=== PATIENT | male | born 1945 | race Caucasian/White ===

== ENCOUNTER 2018-04-12 21:46 | Observation (INO) ==
[2018-04-12] MEDS ORDERED: 0.9 % Sodium Chloride 1,000 ML IVC ONE (21:51)
--- NOTE | 2018-04-12 21:52 | Emergency Department Note ---
Disposition Clinical Impression: Lower gastrointestinal hemorrhage Disposition: Admitted As Inpatient Condition: Fair Referrals: Sonia Luna MD [Primary Care Provider] - Forms: ED Satisfaction Letter Time of Disposition: 22:29 GI Bleed HPI - General Chief complaint: ED GI Bleed Stated complaint: GI bleed Time Seen by Provider: 04/12/18 21:50 Source: patient, EMS Mode of arrival: EMS Limitations: no limitations Nursing Notes Reviewed: Yes Vital Signs Reviewed: Yes - History of Present Illness HPI Narrative: Patient is a 72-year-old male with past medical history of hypertension, previous CT, currently on aspirin and Plavix, diabetes.. He presents today due to rectal bleeding. He states that he has had 6 total grossly bloody bowel movements that have filled up toilet bowl. He had 2 yesterday and 4 today. He was told by his primary care physician to stop his aspirin. He has stopped this. Denies any overt abdominal discomfort. He did have one episode of vomiting but denies any current nausea, fevers, chest pain, shortness of breath. He states that he felt general fatigue and sweating prior to arrival private received a small fluid bolus in route and states that he feels better currently. - Related Data Home Medications Medication Instructions Recorded Confirmed Aspirin Enteric Coated [Aspirin EC] 81 mg PO DAILY 07/27/15 11/02/15 Glimepiride [Amaryl] 1 mg PO DAILY 07/27/15 11/02/15 Potassium Chloride [Klor-Con 10 meq PO DAILY 07/27/15 11/02/15 Sprinkle] Amlodipine 10 mg PO DAILY 11/02/15 11/02/15 B Complex 1 tab PO DAILY 11/02/15 11/02/15 Coq10 100 mg PO DAILY 11/02/15 11/02/15 Fish Oil 1,200 mg PO DAILY 11/02/15 11/02/15 Hydrochlorothiazide 25 mg PO DAILY 11/02/15 11/02/15 Lisinopril [Zestril] 40 mg PO BID 11/02/15 11/02/15 Metoprolol [Lopressor] 12.5 mg PO BID 11/02/15 11/02/15 Pravastatin Sodium 20 mg PO HS 11/02/15 11/02/15 Vit D3/Vit E AC/Safflower Oil 1 tab PO DAILY 11/02/15 11/02/15 Previous Rx's Medication Instructions Recorded Clopidogrel [Plavix] 75 mg PO DAILY #30 tablet 07/29/15 Metoprolol [Lopressor] 25 mg PO BID #60 tablet 07/29/15 Nitroglycerin 0.4 mg SL Q5MIN PRN #25 tab.subl 07/29/15 Allergies Allergy/AdvReac Type Severity Reaction Status Date / Time No Known Allergies Allergy Verified 07/27/15 13:48 All systems ED: reviewed and negative except as stated. Constitutional: Denies: fever Cardiovascular: Denies: chest pain Respiratory: Denies: cough, dyspnea Gastrointestinal: Reports: vomiting, other (Rectal bleeding). Denies: abdominal pain, nausea, diarrhea, constipation Genitourinary: Denies: urgency, dysuria, frequency, hematuria Neurological: Denies: headache, weakness, numbness Endocrine: Reports: fatigue Past Medical History - Past Medical History Attestation: Yes The following information was validated with the patient. Source: patient Medical history: Reports: arthritis, cancer, CHF, coronary artery disease, diabetes, glaucoma, hyperlipidemia, hypertension, malignancy, myocardial infarction Surgical history: Reports: non-contributory Psychiatric history: Reports: no psych history - Social History Smoking Status: Light tobacco smoker Alcohol use: Reports: none Drug use: Reports: none Course Course Narrative: Blood pressure was stable upon arrival. No acute distress at this time. Rectal exam did show gross red blood. Lungs clear to auscultation, abdomen soft and nontender. Fluid bolus started, 1 L normal saline. Basic labs obtained including a CBC, BMP, PT/INR/PTT, type and screen. 22:28 blood pressure remained stable systolic of 110-120s. Hemoglobin 14.8. Patient is in no acute distress. I spoke with surgery, Dr. Limon, she is agreeable to be consult. Since patient is stable, he will not be taken emergently to colonoscopy at this time. She recommended admission to hospitalist and she will see patient in the morning. Vital Signs Temperature 98.7 F 04/12/18 21:48 Pulse Rate 66 04/12/18 21:48 Respiratory Rate 20 04/12/18 21:48 Blood Pressure 113/70 04/12/18 21:48 O2 Sat by Pulse Oximetry 96 04/12/18 21:48 Temperature 98.7 F 04/12/18 21:48 Pulse Rate 57 04/12/18 22:00 Respiratory Rate 13 04/12/18 22:00 Blood Pressure 121/78 04/12/18 22:00 O2 Sat by Pulse Oximetry 98 04/12/18 22:00 Oxygen Delivery Oxygen Delivery Nasal Cannula GI Bleed - [facility] Narrative Medical decision making narrative: Blood pressure was stable upon arrival. No acute distress at this time. Rectal exam did show gross red blood. Lungs clear to auscultation, abdomen soft and nontender. Fluid bolus started, 1 L normal saline. Basic labs obtained including a CBC, BMP, PT/INR/PTT, type and screen. 22:28 blood pressure remained stable systolic of 110-120s. Hemoglobin 14.8. Patient is in no acute distress. I spoke with surgery, Dr. Limon, she is agreeable to be consult. Since patient is stable, he will not be taken emergently to colonoscopy at this time. She recommended admission to hospitalist and she will see patient in the morning. Labs also show SHANNAN, patient given fluids. - Medical Records Medical records reviewed: Yes I reviewed the patient's medical records. - Lab Data Lab results reviewed: Yes I reviewed the patient's lab results. Result diagrams: 04/12/18 21:55 04/12/18 21:55 Lab Results 04/12/18 04/12/18 04/12/18 Range/Units 21:55 21:55 21:55 WBC 9.3 (4.3-11.1) K/mcL RBC 4.62 (4.19-5.50) M/mcL Hgb 14.8 (12.9-16.9) g/dL Hct 42.4 (37.5-50.1) % MCV 91.8 (83.0-100.0) fL MCH 32.0 (28.0-33.3) pg MCHC 34.9 (31.6-35.5) g/dL RDW 13.2 (11.5-14.5) % Plt Count 220 (140-400) K/mcL MPV 9.6 (9.4-12.4) fL Immature Gran % 0.3 (0-4) % Seg Neutrophils % 52.9 % Lymphocytes % 33.9 % Monocytes % 10.9 % Eosinophils % 1.6 % Basophils % 0.4 % Neutrophils # 4.9 (1.6-8.9) K/mcL Lymphocytes # 3.2 (0.6-4.6) K/mcL Monocytes # 1.0 (0.0-1.3) K/mcL Eosinophils # 0.2 (0.0-0.6) K/mcL Basophils # 0.0 (0.0-0.2) K/mcL PT 12.1 (9.4-12.1) Seconds INR 1.1 APTT 28.6 (26.0-36.0) Seconds Sodium 140 (136-145) mEq/L Potassium 3.6 (3.5-5.1) mEq/L Chloride 108 H (98-107) mEq/L Carbon Dioxide 23 (23-29) mEq/L BUN 31 H (8-23) mg/dL Creatinine 1.69 H (0.70-1.30) mg/dL Est GFR ( Amer) 48 L (> 60) Est GFR (Non-Af Amer) 40 L (> 60) BUN/Creatinine Ratio 18 (6-26) Glucose 262 H (70-105) mg/dL Calculated Osmolality 306 H (280-300) Calcium 8.4 L (8.6-10.3) mg/dL Blood Type 04/12/18 Range/Units 21:55 WBC (4.3-11.1) K/mcL RBC (4.19-5.50) M/mcL Hgb (12.9-16.9) g/dL Hct (37.5-50.1) % MCV (83.0-100.0) fL MCH (28.0-33.3) pg MCHC (31.6-35.5) g/dL RDW (11.5-14.5) % Plt Count (140-400) K/mcL MPV (9.4-12.4) fL Immature Gran % (0-4) % Seg Neutrophils % % Lymphocytes % % Monocytes % % Eosinophils % % Basophils % % Neutrophils # (1.6-8.9) K/mcL Lymphocytes # (0.6-4.6) K/mcL Monocytes # (0.0-1.3) K/mcL Eosinophils # (0.0-0.6) K/mcL Basophils # (0.0-0.2) K/mcL PT (9.4-12.1) Seconds INR APTT (26.0-36.0) Seconds Sodium (136-145) mEq/L Potassium (3.5-5.1) mEq/L Chloride (98-107) mEq/L Carbon Dioxide (23-29) mEq/L BUN (8-23) mg/dL Creatinine (0.70-1.30) mg/dL Est GFR ( Amer) (> 60) Est GFR (Non-Af Amer) (> 60) BUN/Creatinine Ratio (6-26) Glucose (70-105) mg/dL Calculated Osmolality (280-300) Calcium (8.6-10.3) mg/dL Blood Type A POSITIVE - EKG Data EKG attestation: Yes I reviewed and interpreted this EKG. EKG results narrative: 04/12/2018 at 21:49. Normal sinus rhythm. Rate 66. HI 165. QRS 101. QTC 424. No acute ST elevation or depression. S.B.A.R. - S.B.A.R. Situation: Demographics, MOA Background: Presenting Complaint, Relevant PMH, Meds, & Allergies Assessment: Vital Signs, Course and respsone to treatment, Exam Concerns, Patient/Family Expectation, Pertinant Lab Results Recommendation: Barrier(s) to disposition, Recommendation based on pending studies, treatments, or consults S.B.A.R. Report Given to: Dr. Dee
[2018-04-12] MEDS ORDERED: 0.9 % Sodium Chloride 1,000 ML ONE (21:53)
[2018-04-12 22:09] LABS: Basophils % 0.4 %; Eosinophils # 0.2 K/mcL (0.0-0.6); Eosinophils % 1.6 %; Hematocrit 42.4 % (37.5-50.1); Hemoglobin 14.8 g/dL (12.9-16.9); Immature Granulocytes % 0.3 % (0-4); Lymphocytes # 3.2 K/mcL (0.6-4.6); Lymphocytes % 33.9 %; Mean Corpuscular HGB Conc 34.9 g/dL (31.6-35.5); Mean Corpuscular Volume 91.8 fL (83.0-100.0); Mean Platelet Volume 9.6 fL (9.4-12.4); Monocytes % 10.9 %; Neutrophils # 4.9 K/mcL (1.6-8.9); Platelet Count 220 K/mcL (140-400); Red Blood Count 4.62 M/mcL (4.19-5.50); Red Cell Distribution Width 13.2 % (11.5-14.5); Segmented Neutrophils % 52.9 %
[2018-04-12 22:15] LABS: INR 1.1; Prothrombin Time 12.1 Seconds (9.4-12.1)
[2018-04-12 22:17] LABS: Activated Partial Thrombo Time 28.6 Seconds (26.0-36.0)
--- NOTE | 2018-04-12 22:23 | Emergency Department Note ---
Disposition Clinical Impression: Lower gastrointestinal hemorrhage Disposition: Still a Patient Referrals: Sonia Luna MD [Primary Care Provider] - Forms: ED Satisfaction Letter General Adult HPI - General Chief complaint: ED GI Bleed Stated complaint: GI bleed Time Seen by Provider: 04/12/18 21:50 Source: patient, EMS Mode of arrival: EMS Limitations: no limitations - History of Present Illness Pain Scale: 0 - Related Data Home Medications Medication Instructions Recorded Confirmed Aspirin Enteric Coated [Aspirin EC] 81 mg PO DAILY 07/27/15 11/02/15 Glimepiride [Amaryl] 1 mg PO DAILY 07/27/15 11/02/15 Potassium Chloride [Klor-Con 10 meq PO DAILY 07/27/15 11/02/15 Sprinkle] Amlodipine 10 mg PO DAILY 11/02/15 11/02/15 B Complex 1 tab PO DAILY 11/02/15 11/02/15 Coq10 100 mg PO DAILY 11/02/15 11/02/15 Fish Oil 1,200 mg PO DAILY 11/02/15 11/02/15 Hydrochlorothiazide 25 mg PO DAILY 11/02/15 11/02/15 Lisinopril [Zestril] 40 mg PO BID 11/02/15 11/02/15 Metoprolol [Lopressor] 12.5 mg PO BID 11/02/15 11/02/15 Pravastatin Sodium 20 mg PO HS 11/02/15 11/02/15 Vit D3/Vit E AC/Safflower Oil 1 tab PO DAILY 11/02/15 11/02/15 Previous Rx's Medication Instructions Recorded Clopidogrel [Plavix] 75 mg PO DAILY #30 tablet 07/29/15 Metoprolol [Lopressor] 25 mg PO BID #60 tablet 07/29/15 Nitroglycerin 0.4 mg SL Q5MIN PRN #25 tab.subl 07/29/15 Allergies Allergy/AdvReac Type Severity Reaction Status Date / Time No Known Allergies Allergy Verified 07/27/15 13:48 Constitutional: Denies: fever Cardiovascular: Denies: chest pain Respiratory: Denies: cough, dyspnea Gastrointestinal: Reports: vomiting, other (Rectal bleeding). Denies: abdominal pain, nausea, diarrhea, constipation Genitourinary: Denies: urgency, dysuria, frequency, hematuria Neurological: Denies: headache, weakness, numbness Endocrine: Reports: fatigue Past Medical History - Past Medical History Medical history: Reports: arthritis, cancer, CHF, coronary artery disease, diabetes, glaucoma, hyperlipidemia, hypertension, malignancy, myocardial infarction Surgical history: Reports: non-contributory Psychiatric history: Reports: no psych history - Social History Smoking Status: Light tobacco smoker Smokeless Tobacco Status: No Alcohol use: Reports: none Drug use: Reports: none Physical Exam - General Limitations: no limitations General appearance: alert Course - Reevaluation(s) Reevaluation #1: Attestation note I examined this patient and my medical decision-making was reviewed with the emergency medicine resident. I agree with the documented findings, disposition and treatment plan as described except to the extent set forth below. Patient seen with emergency medicine resident Dr. Wilbur Walker, Please see a copy of his note for details of the H&P, ED evaluation, management and disposition. I have independently evaluated the patient and confirmed appropriate portions of the history and physical exam. Briefly: 72-year-old male history of [place] is on aspirin and Plavix is taking himself off aspirin 2 days of bright red blood per rectum lightheadedness per EMS he was lethargic and systolic of 80 when he arrived he was systolic 100 he was pale but not overly so presented gross positive for blood on stool hemoglobin is 14 systolic is 110 after liters saline 2 large-bore IVs had been established. Patient has been typed and crossed. We will consult Dr. Limon surgical content editor for endoscopy. Plan is to continue resuscitation and admit patient for observation for lower GI bleed. Providing 45 minutes of critical care service for this patient Time: 22:21 Vital Signs Temperature 98.7 F 04/12/18 21:48 Pulse Rate 66 04/12/18 21:48 Respiratory Rate 20 04/12/18 21:48 Blood Pressure 113/70 04/12/18 21:48 O2 Sat by Pulse Oximetry 96 04/12/18 21:48 Temperature 98.7 F 04/12/18 21:48 Pulse Rate 65 04/12/18 21:53 Respiratory Rate 13 04/12/18 21:53 Blood Pressure 113/70 04/12/18 21:53 O2 Sat by Pulse Oximetry 99 04/12/18 21:56 Oxygen Delivery Oxygen Delivery Nasal Cannula Medical Decision Making - Lab Data Result diagrams: 04/12/18 21:55 Lab Results 04/12/18 04/12/18 Range/Units 21:55 21:55 WBC 9.3 (4.3-11.1) K/mcL RBC 4.62 (4.19-5.50) M/mcL Hgb 14.8 (12.9-16.9) g/dL Hct 42.4 (37.5-50.1) % MCV 91.8 (83.0-100.0) fL MCH 32.0 (28.0-33.3) pg MCHC 34.9 (31.6-35.5) g/dL RDW 13.2 (11.5-14.5) % Plt Count 220 (140-400) K/mcL MPV 9.6 (9.4-12.4) fL Immature Gran % 0.3 (0-4) % Seg Neutrophils % 52.9 % Lymphocytes % 33.9 % Monocytes % 10.9 % Eosinophils % 1.6 % Basophils % 0.4 % Neutrophils # 4.9 (1.6-8.9) K/mcL Lymphocytes # 3.2 (0.6-4.6) K/mcL Monocytes # 1.0 (0.0-1.3) K/mcL Eosinophils # 0.2 (0.0-0.6) K/mcL Basophils # 0.0 (0.0-0.2) K/mcL PT 12.1 (9.4-12.1) Seconds INR 1.1 APTT 28.6 (26.0-36.0) Seconds
[2018-04-12 22:28] LABS: Calcium 8.4 mg/dL (8.6-10.3); Potassium 3.6 mEq/L (3.5-5.1)
[2018-04-12] MEDS: 0.9 % Sodium Chloride 1,000 ML IVC SCH (22:52)
[2018-04-13] MEDS ORDERED: Naloxone 0.4 MG/ML INJ IVP PRN (01:22)
[2018-04-13] MEDS ORDERED: D5% in Water 1,000 ML IVC PRN (01:25)
[2018-04-13] MEDS ORDERED: *HR* Dextrose 50 % in Water (Syg) 50 ML SYRINGE IVP PRN (01:25)
[2018-04-13] MEDS ORDERED: Dextrose Gel 15 GM/37.5 ML TUBE PO PRN ×2 (01:25)
[2018-04-13] MEDS: 0.9 % Sodium Chloride 1,000 ML IVC SCH ×3 (01:30→09:16)
--- NOTE | 2018-04-13 01:45 | Internal Med History&Physical ---
Date of Encounter: 04/13/18 Time of Encounter: 01:20 Internal Medicine - H&P: HPI Chief complaint: BRBPR Admitted From: Home History of present illness: Mr. Dupont is a 72 year old male with history of STEMI status post PCI back in July 2015, on dual antiplatelet therapy, hypertension, presented to the ED with 2 day history of bright red blood per rectum/hematochezia. States that it spontaneously started 2 days ago when he had 2 bloody bowel movements. No abdominal pain, recent change in bowel habits, fever/chills, or N/V. He states that he had -ve Cologuard test about 6 months ago. Nevertheless, he was worried hence he stopped taking his ASA/plavix but he had 4 more episodes yesterday hence decided to come to the ED for further evaluation. Just prior to the ED arrival, he had a near-syncopal episode as well. He has no chest pain, shortness of breath, cough, sputum production, or dysuria. No joint pain or rash. In the ED, he was afebrile and hemodynamically stable. According to the EMS, he was hypotensive and was given IVF which he responded to. Labs show hemoglobin of 14.8 (baseline around 16-17), Cr 1.69 (Baseline 1.2), and glucose of 262. No coagulopathy or thrombocytopenia. He received 2 L of IV fluid boluses and admitted for further management. Past Med Surg Social Fam HX - Past Medical History Medical history: arthritis, coronary artery disease, diabetes, glaucoma, hyperlipidemia, hypertension, malignancy, myocardial infarction Psychiatric history: no psych history - Past Surgical History Surgical History: non-contributory - Social History Smoking Status: Light tobacco smoker Smokeless Tobacco Status: No Alcohol use: none Drug use: none - Family History Mother Adopted: Yes Family Member Ethnicity: Non- Living Status: Hx Family Cardiac Disorders: Yes (mother) Hx Family Respiratory Disorders: Yes (father) Hx Family Cancer: Yes (grandfather) Hx Family GI Disorders: No Hx Family Endocrine Disorder: Yes (mother) Hx Family Neuromuscular Disorders: No Hx Family Neurologic Disorders: No Hx Family HEENT Disorders: No Hx Family Autoimmune Disorders: No Internal Medicine - H&P: Meds Aspirin Enteric Coated [Aspirin EC] 81 mg PO DAILY 07/27/15 [History] Glimepiride [Amaryl] 1 mg PO DAILY 07/27/15 [History] Potassium Chloride [Klor-Con Sprinkle] 10 meq PO DAILY 07/27/15 [History] Clopidogrel [Plavix] 75 mg PO DAILY #30 tablet 07/29/15 [Rx] Metoprolol [Lopressor] 25 mg PO BID #60 tablet 07/29/15 [Rx] Nitroglycerin 0.4 mg SL Q5MIN PRN #25 tab.subl 07/29/15 [Rx] Amlodipine 10 mg PO DAILY 11/02/15 [History] B Complex 1 tab PO DAILY 11/02/15 [History] Coq10 100 mg PO DAILY 11/02/15 [History] Fish Oil 1,200 mg PO DAILY 11/02/15 [History] Hydrochlorothiazide 25 mg PO DAILY 11/02/15 [History] Lisinopril [Zestril] 40 mg PO BID 11/02/15 [History] Metoprolol [Lopressor] 12.5 mg PO BID 11/02/15 [History] Pravastatin Sodium 20 mg PO HS 11/02/15 [History] Vit D3/Vit E AC/Safflower Oil 1 tab PO DAILY 11/02/15 [History] 3 Allergy/AdvReac Type Severity Reaction Status Date / Time No Known Allergies Allergy Verified 07/27/15 13:48 All Systems PM: A 10-system review of systems was performed and is negative for pertinent findings except as documented above in the HPI. - Constitutional Vitals: Temp Pulse Resp BP Pulse Ox 98.0 F 66 16 92/60 95 04/13/18 00:02 04/13/18 00:02 04/13/18 00:02 04/13/18 00:02 04/13/18 00:02 Exam: General: Alert, oriented to person. not in distress Skin:Normal color, no rash, no lesions. HEENT:EOM, pupils equal, round and reactive. No pallor Cardiovascular:Normal S1 & S2, Pulse regular. Lungs:Normal breath sounds, no wheezes or crackles. Abdomen:Soft, non-tender, no rigidity. Extremities:No deformity, no edema or tenderness, no joint swelling or clubbing. Neurological: no focal deficits. motor function intact all 4 limbs Pulses:Carotid and radial pulses normal +2. Rest of the physical exam is non contributory. Internal Med - H&P Results - Labs CBC & Chem 7: 04/12/18 21:55 04/12/18 21:55 - Assessment and plan (1) Lower gastrointestinal hemorrhage Current Visit: Yes Status: Acute Assessment and plan: Two-day history of bright red blood per rectum and hematochezia likely lower GI bleed but brisk upper GI bleed is also a possibility given his initial hemodynamic instability Hemoglobin dropped to 14.8 from his baseline of 16-17 Hypotensive on presentation which responded to IV fluid Continue maintenance IV fluid, will give fluid bolus PRN for hypotension NPO, can have ice chips PPI BID H&H Q8 Surgery consulted and called from ED (2) CAD (coronary artery disease) Current Visit: Yes Status: Acute Assessment and plan: On dual antiplatelet therapy, hold off will also hold off on bb and MEAGAN-i in view of hypotension Qualifiers: Coronary Disease-Associated Artery/Lesion type: [place] artery [place] vs. transplanted heart: [place] heart Associated angina: without angina Qualified Code(s): I25.10 - Atherosclerotic heart disease of [place] coronary artery without angina pectoris (3) Diabetes mellitus Current Visit: No Status: Chronic Assessment and plan: On glimepiride at home, hold off low dose sliding scale Q6 Qualifiers: Diabetes mellitus type: type 2 Diabetes mellitus complication status: with unspecified complications Qualified Code(s): E11.8 - Type 2 diabetes mellitus with unspecified complications (4) Hypertension Current Visit: No Status: Chronic Assessment and plan: Hold off the medication as above Qualifiers: Hypertension type: essential hypertension Qualified Code(s): I10 - Essential (primary) hypertension (5) DVT prophylaxis Current Visit: Yes Status: Acute Assessment and plan: SCD - Time Spent With Patient Total time spent is greater than 50% in coordination of care (as documented) at patient's floor/unit and/or counseling patient:
[2018-04-13] MEDS ORDERED: 0.9 % Sodium Chloride 500 ML IVC PRN (01:54)
[2018-04-13] MEDS: Pantoprazole 40 MG VIAL IVP SCH ×2 (03:39→17:08)
[2018-04-13 04:43] LABS: Basophils % 0.3 %; Eosinophils # 0.1 K/mcL (0.0-0.6); Eosinophils % 0.8 %; Hematocrit 33.5 % (37.5-50.1); Immature Granulocytes % 0.4 % (0-4); Lymphocytes # 1.7 K/mcL (0.6-4.6); Lymphocytes % 16.6 %; Mean Corpuscular Hemoglobin 31.6 pg (28.0-33.3); Mean Corpuscular Volume 92.8 fL (83.0-100.0); Mean Platelet Volume 9.8 fL (9.4-12.4); Monocytes # 0.9 K/mcL (0.0-1.3); Monocytes % 8.9 %; Neutrophils # 7.7 K/mcL (1.6-8.9); Platelet Count 180 K/mcL (140-400); Red Blood Count 3.61 M/mcL (4.19-5.50); Red Cell Distribution Width 13.2 % (11.5-14.5)
[2018-04-13 05:00] LABS: BUN/Creatinine Ratio 24 (6-26); Blood Urea Nitrogen 30 mg/dL (8-23); Calcium 7.7 mg/dL (8.6-10.3); Carbon Dioxide 24 mEq/L (23-29); Chloride 114 mEq/L (98-107); Glucose 193 mg/dL (70-105); Osmolality,Calculated 307 (280-300); Potassium 3.8 mEq/L (3.5-5.1); Sodium 143 mEq/L (136-145); eGFR For Non-African Americans 56 (> 60)
[2018-04-13 05:17] LABS: Hemoglobin 11.4 g/dL (12.9-16.9)
[2018-04-13] MEDS: Insulin LISPRO 300 UNITS/3 ML VIAL SQ SCH ×3 (05:52→20:19)
[2018-04-13] MEDS ORDERED: Polyethylene Glycol 3350 255 GM POWDER PO ONE (12:07)
[2018-04-13 12:33] LABS: Hemoglobin 10.6 g/dL (12.9-16.9)
--- NOTE | 2018-04-13 12:39 | Internal Med Progress Note ---
Hospitalist Progress Note - Encounter Date of Encounter: 04/13/18 Time of Encounter: 12:34 - Subjective Interval History: Patient seen and examined at bedside. Patient overnight continued to have bright red blood per rectum in small volumes. However the bleeding continues to occur. Denies any chest pain, shortness breath, vomiting, nausea, abdominal pain. Patient was seen by surgery who ordered a clear liquid diet and bowel prep and will perform colonoscopy tomorrow. Informed the patient will have to continue holding aspirin and Plavix due to his bleeding. - Exam Vitals: Temp Pulse Resp BP Pulse Ox 98.1 F 81 18 108/71 97 04/13/18 11:31 04/13/18 11:31 04/13/18 11:31 04/13/18 11:31 04/13/18 11:31 Exam: Constitutional: No acute distress, Alert, nontoxic-appearing Psych: AAO x 3 HEENT: NCAT, EOMI Neck: supple, no JVD Cardio: regular rate and rhythm, +s1s2, no murmurs/rubs/gallops, no JVD Resp: clear to ascultation bilaterally, no wheezes/rales/ronchi Abd: soft, non tender/non distended, positive bowel sounds, no gaurding/reboud/ ridgitity Extremities: no clubbing/cyanosis/edema appreciated Neuro: no focal deficits appreciated - Assessment and Plan (1) Lower gastrointestinal hemorrhage Current Visit: Yes Status: Acute Assessment and Plan: Two-day history of bright red blood per rectum and hematochezia -likely lower GI bleed but brisk upper GI bleed is also a possibility given his initial hemodynamic instability -Hemoglobin dropped to 14.8 from his baseline of 16-17 -Hypotensive on presentation which responded to IV fluid -Continue maintenance IV fluid, will give fluid bolus PRN for hypotension -Currently hemodynamically stable -PPI BID -H&H Q8 -Her liquid diet started by general surgery -Bowel prep ordered -Colonoscopy scheduled for tomorrow -General surgery following (2) CAD (coronary artery disease) Current Visit: Yes Status: Acute Assessment and Plan: He is on dual antiplatelet therapy secondary to PCI with stent placement in 2014 -Informed patient that we will have to hold aspirin and Plavix currently; patient and family state they understand -Continue to hold bb and MEAGAN-i in view of hypotension -Evaluate post colonoscopy when able to resume at least one antiplatelet (3) Diabetes mellitus Current Visit: No Status: Chronic Assessment and Plan: On glimepiride at home, hold for now low dose sliding scale Q6 (4) DVT prophylaxis Current Visit: Yes Status: Acute Assessment and Plan: SCD (5) Hypertension Current Visit: No Status: Chronic Assessment and Plan: Continue to hold patient's home medications due to low normal blood pressures DVT Prophylaxis: SCDs - Time Spent with Patient Total time spent is greater than 50% in coordination of care (as documented) at patient's floor/unit and/or counseling patient: 25 - 35 minutes Plan of Care Discussed with: patient Internal Medicine: Result - Labs CBC & Chem 7: 04/13/18 04:01 04/13/18 04:01 Labs: Short CBC 04/13/18 Range/Units 04:01 WBC 10.5 (4.3-11.1) K/mcL Hgb 11.4 L D (12.9-16.9) g/dL Hct 33.5 L (37.5-50.1) % Plt Count 180 (140-400) K/mcL Neutrophils # 7.7 (1.6-8.9) K/mcL BMP 04/13/18 04:01 Sodium 143 Potassium 3.8 Chloride 114 H Carbon Dioxide 24 BUN 30 H Creatinine 1.26 Glucose 193 H Calcium 7.7 L - ABG Interpretation ABG results: PT/INR, D-dimer PT 12.1 Seconds (9.4-12.1) 04/12/18 21:55 - VTE Documentation of Mechanical Device: Intermittent pneumatic compression device Consult Discharge Plan - Plan Referrals: Soina Luna MD [Primary Care Provider] - (2) CAD (coronary artery disease) Qualifiers: Coronary Disease-Associated Artery/Lesion type: [place] artery [place] vs. transplanted heart: [place] heart Associated angina: without angina Qualified Code(s): I25.10 - Atherosclerotic heart disease of [place] coronary artery without angina pectoris (3) Diabetes mellitus Qualifiers: Diabetes mellitus type: type 2 Diabetes mellitus complication status: with unspecified complications Qualified Code(s): E11.8 - Type 2 diabetes mellitus with unspecified complications (5) Hypertension Qualifiers: Hypertension type: essential hypertension Qualified Code(s): I10 - Essential (primary) hypertension
--- NOTE | 2018-04-13 14:10 | General Surgery Consult Note ---
<Romi Mackay E - Last Filed: 04/13/18 14:07> Date of Encounter: 04/13/18 Time of Encounter: 14:07 Assessment and Plan (1) Rectal bleeding Current Visit: Yes Status: Acute CLD NPO after midnight Bowel prep Colonoscopy ordered for tomorrow, benefits and risks of surgery discussed with patient, procedure and common complications discussed with patient. Patient agreed to procedure. Patient signed consent form IV fluids as per primary History of Present Illness Consult date: 04/13/18 Reason for consult: other (Bright red blood per rectum) History of present illness: Patient states that Sunday he had some gas which left his underwear wet with blood. He then had two stools with bright red blood on Sunday. Saw his PCP on . Sunday he had a dizzy spell and passed out, called EMS. Denies abdominal pain, gerd, n/v. History of HTN, DM, hyperlipidemia, KS in 2014 , CAD. NO abdominal surgeries, stent placed after KS in 2014, Dental extractions with no complications. Has not had a colonoscopy. Past Med Surg Social Fam HX - Past Medical History Medical history: arthritis, coronary artery disease, diabetes, glaucoma, hyperlipidemia, hypertension, malignancy, myocardial infarction Psychiatric history: no psych history - Past Surgical History Surgical History: non-contributory - Social History Smoking Status: Light tobacco smoker Smokeless Tobacco Status: No Alcohol use: none Drug use: none - Family History Mother History Unknown: Yes Adopted: Yes Family Member Ethnicity: Non- Living Status: Hx Family Cardiac Disorders: Yes (mother) Hx Family Respiratory Disorders: Yes (father) Hx Family Cancer: Yes (grandfather) Hx Family GI Disorders: No Hx Family Endocrine Disorder: Yes (mother) Hx Family Neuromuscular Disorders: No Hx Family Neurologic Disorders: No Hx Family HEENT Disorders: No Hx Family Autoimmune Disorders: No Medications and Allergies Amlodipine Besylate 10 mg PO DAILY 04/13/18 [History] Aspirin [Lo-Dose Aspirin EC] 81 mg PO DAILY 04/13/18 [History] Clopidogrel [Plavix] 75 mg PO DAILY 04/13/18 [History] Glimepiride [Amaryl] 4 mg PO DAILY 04/13/18 [History] Lisinopril [Zestril] 40 mg PO DAILY 04/13/18 [History] Metoprolol [Lopressor] 12.5 mg PO BID 04/13/18 [History] 3 Allergy/AdvReac Type Severity Reaction Status Date / Time No Known Allergies Allergy Verified 07/27/15 13:48 Review of Systems All systems PM: The remainder of the systems were reviewed and are negative - Constitutional no fatigue, no weight gain, no weight loss - Cardiovascular no chest pain, no dyspnea, no radiating jaw, neck or arm pain - Respiratory no cough, no dyspnea on exertion, no chest congestion - Gastrointestinal as per HPI General Surgery Exam Initial Vital Signs Temp Pulse Resp BP Pulse Ox 98.7 F 66 20 113/70 96 04/12/18 21:48 04/12/18 21:48 04/12/18 21:48 04/12/18 21:48 04/12/18 21:48 - General physical appearance well developed, well nourished, no distress - Respiratory normal expansion, normal respiratory effort, clear to auscultation - Cardiovascular Cardiovascular exam: Present: RRR, no murmurs/rubs/gallops - Abdomen Abdomen general surgery: Present: bowel sounds present, soft, non tender - Musculoskeletal Present: normal posture - Psychiatric Psychiatric general surgery: Present: oriented to person, oriented to place, oriented to time Exam Initial Vital Signs Temp Pulse Resp BP Pulse Ox 98.7 F 66 20 113/70 96 04/12/18 21:48 04/12/18 21:48 04/12/18 21:48 04/12/18 21:48 04/12/18 21:48 Results - Labs 04/13/18 12:17 04/13/18 04:01 Abnormal lab results RBC 3.61 M/mcL (4.19-5.50) L 04/13/18 04:01 Hgb 10.6 g/dL (12.9-16.9) L 04/13/18 12:17 Hct 31.0 % (37.5-50.1) L 04/13/18 12:17 Chloride 114 mEq/L (98-107) H 04/13/18 04:01 BUN 30 mg/dL (8-23) H 04/13/18 04:01 Est GFR (Non-Af Amer) 56 (> 60) L 04/13/18 04:01 Glucose 193 mg/dL (70-105) H 04/13/18 04:01 Calculated Osmolality 307 (280-300) H 04/13/18 04:01 Calcium 7.7 mg/dL (8.6-10.3) L 04/13/18 04:01 Diabetes panel 04/13/18 Range/Units 04:01 Sodium 143 (136-145) mEq/L Potassium 3.8 (3.5-5.1) mEq/L Chloride 114 H (98-107) mEq/L Carbon Dioxide 24 (23-29) mEq/L BUN 30 H (8-23) mg/dL Creatinine 1.26 (0.70-1.30) mg/dL Glucose 193 H (70-105) mg/dL Calcium 7.7 L (8.6-10.3) mg/dL Calcium panel 04/13/18 Range/Units 04:01 Calcium 7.7 L (8.6-10.3) mg/dL Pituitary panel 04/13/18 Range/Units 04:01 Sodium 143 (136-145) mEq/L Potassium 3.8 (3.5-5.1) mEq/L Chloride 114 H (98-107) mEq/L Carbon Dioxide 24 (23-29) mEq/L BUN 30 H (8-23) mg/dL Creatinine 1.26 (0.70-1.30) mg/dL Glucose 193 H (70-105) mg/dL Calcium 7.7 L (8.6-10.3) mg/dL Adrenal panel 04/13/18 Range/Units 04:01 Sodium 143 (136-145) mEq/L Potassium 3.8 (3.5-5.1) mEq/L Chloride 114 H (98-107) mEq/L Carbon Dioxide 24 (23-29) mEq/L BUN 30 H (8-23) mg/dL Creatinine 1.26 (0.70-1.30) mg/dL Glucose 193 H (70-105) mg/dL Calcium 7.7 L (8.6-10.3) mg/dL All other labs normal. Consult Discharge Plan - Plan Referrals: Sonia Luna MD [Primary Care Provider] - <Yari Limon - Last Filed: 04/13/18 15:55> Date of Encounter: 04/13/18 Assessment and Plan (1) CAD (coronary artery disease) Current Visit: Yes Status: Acute recommend hold aspirin and plavix currently Qualifiers: Coronary Disease-Associated Artery/Lesion type: [place] artery [place] vs. transplanted heart: [place] heart Associated angina: without angina Qualified Code(s): I25.10 - Atherosclerotic heart disease of [place] coronary artery without angina pectoris (2) Lower gastrointestinal hemorrhage Current Visit: Yes Status: Acute discussed with patient given his significant bright red bleeding without any upper abdominal symptoms will plan colonoscopy with anesthesia, risks and benefits discussed and he wishes to proceed trend Hb clears today bowel prep today npo midnight plan colonoscopy tomorrow History of Present Illness Requesting physician: Wilbur Walker History of present illness: Patient is a 72 yo male who has never previously had a colonoscopy. He states several days ago he passed flatus and realized wit was wet. He went to the bathroom and had bright red blood passing from rectum. He had several bloody bowel movements that day which were only blood. He saw his PCP the following day and his aspirin was stopped and he was supposed to see a general surgeon as outpatient for colonoscopy. He continued to pass bright red blood over the next few days and once he became dizzy, lightheaded and fell against what sounds like his alix de jesus and passed out. He was brought by EMS to the hospital. He denies any abdominal pain, gerd symptoms or nausea. Denies issues with constipation or diarrhea. Past Med Surg Social Fam HX - Past Medical History Source: patient Medical history: myocardial infarction (2015) - Past Surgical History Surgical History: angioplasty/stent (x1), other (dental extractions) - Social History Current living situation: Home - Independent, Home, With Family Review of Systems All systems PM: reviewed and no additional remarkable complaints except as stated All systems PM: The remainder of the systems were reviewed and are negative General Surgery Exam Initial Vital Signs Temp Pulse Resp BP Pulse Ox 98.7 F 66 20 113/70 96 04/12/18 21:48 04/12/18 21:48 04/12/18 21:48 04/12/18 21:48 04/12/18 21:48 - General physical appearance well developed, well nourished, no distress - Eyes PERRL, normal ocular movement - ENT normal mucosa, normocephalic - Neck trachea midline - Respiratory normal expansion, clear to auscultation - Cardiovascular Cardiovascular exam: Present: RRR, no murmurs/rubs/gallops - Abdomen Abdomen general surgery: Present: bowel sounds present, soft, non tender. Absent: distended, guarding, rebound - Integumentary Integumentary general surgery: Present: warm and dry, no abnormal pigmentation - Neurologic Present: CN 2-12 grossly intact - Musculoskeletal Present: normal posture - Psychiatric Psychiatric general surgery: Present: A&Ox3, oriented to time Exam Initial Vital Signs Temp Pulse Resp BP Pulse Ox 98.7 F 66 20 113/70 96 04/12/18 21:48 04/12/18 21:48 04/12/18 21:48 04/12/18 21:48 04/12/18 21:48 Results - Labs 04/13/18 12:17 04/13/18 04:01 Abnormal lab results RBC 3.61 M/mcL (4.19-5.50) L 04/13/18 04:01 Hgb 10.6 g/dL (12.9-16.9) L 04/13/18 12:17 Hct 31.0 % (37.5-50.1) L 04/13/18 12:17 Chloride 114 mEq/L (98-107) H 04/13/18 04:01 BUN 30 mg/dL (8-23) H 04/13/18 04:01 Est GFR (Non-Af Amer) 56 (> 60) L 04/13/18 04:01 Glucose 193 mg/dL (70-105) H 04/13/18 04:01 Calculated Osmolality 307 (280-300) H 04/13/18 04:01 Calcium 7.7 mg/dL (8.6-10.3) L 04/13/18 04:01 Diabetes panel 04/13/18 Range/Units 04:01 Sodium 143 (136-145) mEq/L Potassium 3.8 (3.5-5.1) mEq/L Chloride 114 H (98-107) mEq/L Carbon Dioxide 24 (23-29) mEq/L BUN 30 H (8-23) mg/dL Creatinine 1.26 (0.70-1.30) mg/dL Glucose 193 H (70-105) mg/dL Calcium 7.7 L (8.6-10.3) mg/dL Calcium panel 04/13/18 Range/Units 04:01 Calcium 7.7 L (8.6-10.3) mg/dL Pituitary panel 04/13/18 Range/Units 04:01 Sodium 143 (136-145) mEq/L Potassium 3.8 (3.5-5.1) mEq/L Chloride 114 H (98-107) mEq/L Carbon Dioxide 24 (23-29) mEq/L BUN 30 H (8-23) mg/dL Creatinine 1.26 (0.70-1.30) mg/dL Glucose 193 H (70-105) mg/dL Calcium 7.7 L (8.6-10.3) mg/dL Adrenal panel 04/13/18 Range/Units 04:01 Sodium 143 (136-145) mEq/L Potassium 3.8 (3.5-5.1) mEq/L Chloride 114 H (98-107) mEq/L Carbon Dioxide 24 (23-29) mEq/L BUN 30 H (8-23) mg/dL Creatinine 1.26 (0.70-1.30) mg/dL Glucose 193 H (70-105) mg/dL Calcium 7.7 L (8.6-10.3) mg/dL All other labs normal. - Attending Attestation I examined this patient and my medical decision-making was reviewed with the Resident Physician. I agree with the documented findings, disposition and treatment plan as described except to the extent set forth below.
[2018-04-13 20:09] LABS: Hematocrit 31.5 % (37.5-50.1); Hemoglobin 10.5 g/dL (12.9-16.9)
[2018-04-14] MEDS: 0.9 % Sodium Chloride 1,000 ML IVC SCH ×2 (05:12→17:06)
[2018-04-14] MEDS: Pantoprazole 40 MG VIAL IVP SCH ×2 (05:12→17:11)
[2018-04-14 05:25] LABS: Basophils % 0.3 %; Eosinophils # 0.2 K/mcL (0.0-0.6); Eosinophils % 2.4 %; Hematocrit 27.4 % (37.5-50.1); Hemoglobin 9.4 g/dL (12.9-16.9); Immature Granulocytes % 0.3 % (0-4); Lymphocytes # 1.9 K/mcL (0.6-4.6); Lymphocytes % 23.6 %; Mean Corpuscular HGB Conc 34.3 g/dL (31.6-35.5); Mean Corpuscular Hemoglobin 31.9 pg (28.0-33.3); Mean Corpuscular Volume 92.9 fL (83.0-100.0); Mean Platelet Volume 9.6 fL (9.4-12.4); Monocytes # 0.8 K/mcL (0.0-1.3); Monocytes % 9.6 %; Platelet Count 160 K/mcL (140-400); Red Blood Count 2.95 M/mcL (4.19-5.50); Red Cell Distribution Width 13.2 % (11.5-14.5); Segmented Neutrophils % 63.8 %
[2018-04-14 05:47] LABS: BUN/Creatinine Ratio 17 (6-26); Blood Urea Nitrogen 16 mg/dL (8-23); Calcium 7.8 mg/dL (8.6-10.3); Carbon Dioxide 24 mEq/L (23-29); Chloride 114 mEq/L (98-107); Glucose 104 mg/dL (70-105); Osmolality,Calculated 295 (280-300); Potassium 3.2 mEq/L (3.5-5.1); Sodium 142 mEq/L (136-145); eGFR For Non-African Americans > 60 (> 60)
--- NOTE | 2018-04-14 07:27 | Internal Med Progress Note ---
Hospitalist Progress Note - Encounter Date of Encounter: 04/14/18 Time of Encounter: 07:27 - Subjective Interval History: Patient seen and examined at bedside. Patient no acute overnight events. Patient states that he has had many bowel movements secondary to bowel prep for colonoscopy today. Patient states he continues to have bright red blood per rectum however this appears to slowly be improving. He denies any abdominal pain, nausea, vomiting. Patient denies any chest pain, shortness of breath. Patient is afebrile. Patient for colonoscopy today. - Exam Vitals: Temp Pulse Resp BP Pulse Ox 99.1 F 78 20 131/73 95 04/14/18 06:36 04/14/18 06:36 04/14/18 06:36 04/14/18 06:36 04/14/18 06:36 Exam: Constitutional: No acute distress, Alert Psych: AAO x 3 Neck: supple, no JVD Cardio: regular rate and rhythm, +s1s2 Resp: clear to ascultation bilaterally, no wheezes/rales/ronchi Abd: soft, non tender/non distended, positive bowel sounds, no gaurding/reboud/ ridgitity Extremities: no clubbing/cyanosis/edema appreciated - Assessment and Plan (1) Lower gastrointestinal hemorrhage Current Visit: Yes Status: Acute Assessment and Plan: Two-day history of bright red blood per rectum and hematochezia -likely lower GI bleed but brisk upper GI bleed is also a possibility given his initial hemodynamic instability -Hemoglobin dropped to 9.4 this morning from his baseline of 16-17 -Hypotensive on presentation which responded to IV fluid -We will decrease IV fluids and continue through colonoscopy we will discontinue when diet started -Currently hemodynamically stable; metoprolol added secondary to hypertension -PPI BID -Bowel prep completed -Colonoscopy today -General surgery following -Check CBC in a.m. -Likely only restart one antiplatelet after GI bleed is resolved (2) CAD (coronary artery disease) Current Visit: Yes Status: Acute Assessment and Plan: He is on dual antiplatelet therapy secondary to PCI with stent placement in 2014 -Informed patient that we will have to hold aspirin and Plavix currently; patient and family state they understand -Beta janette resumed, MEAGAN inhibitor currently held -Evaluate post colonoscopy when able to resume at least one antiplatelet (3) Diabetes mellitus Current Visit: No Status: Chronic Assessment and Plan: On glimepiride at home, hold for now low dose sliding scale Q6 (4) SHANNAN (acute kidney injury) Current Visit: Yes Status: Acute Assessment and Plan: Acute renal failure -Likely secondary to precipitous GI bleed secondary to hypotension and hypovolemia -Serum creatinine 1.69 on admission 0.95 this morning -SHANNAN resolved (5) Hypertension Current Visit: No Status: Chronic Assessment and Plan: -Metoprolol restarted -Continue to hold MEAGAN inhibitor for now and restart blood pressure allows (6) DVT prophylaxis Current Visit: Yes Status: Acute Assessment and Plan: SCD - Time Spent with Patient Total time spent is greater than 50% in coordination of care (as documented) at patient's floor/unit and/or counseling patient: 25 - 35 minutes Internal Medicine: Result - Labs CBC & Chem 7: 04/14/18 05:10 04/14/18 05:10 Labs: Short CBC 04/13/18 04/13/18 04/14/18 Range/Units 12:17 19:49 05:10 WBC 7.9 (4.3-11.1) K/mcL Hgb 10.6 L 10.5 L 9.4 L (12.9-16.9) g/dL Hct 31.0 L 31.5 L 27.4 L (37.5-50.1) % Plt Count 160 (140-400) K/mcL Neutrophils # 5.0 (1.6-8.9) K/mcL BMP 04/14/18 05:10 Sodium 142 Potassium 3.2 L Chloride 114 H Carbon Dioxide 24 BUN 16 Creatinine 0.95 Glucose 104 Calcium 7.8 L - ABG Interpretation ABG results: PT/INR, D-dimer PT 12.1 Seconds (9.4-12.1) 04/12/18 21:55 - VTE Documentation of Mechanical Device: Graduated compression elastic hosiery Consult Discharge Plan - Plan Referrals: Sonia Luna MD [Primary Care Provider] - (2) CAD (coronary artery disease) Qualifiers: Coronary Disease-Associated Artery/Lesion type: [place] artery [place] vs. transplanted heart: [place] heart Associated angina: without angina Qualified Code(s): I25.10 - Atherosclerotic heart disease of [place] coronary artery without angina pectoris (3) Diabetes mellitus Qualifiers: Diabetes mellitus type: type 2 Diabetes mellitus complication status: with unspecified complications Qualified Code(s): E11.8 - Type 2 diabetes mellitus with unspecified complications (5) Hypertension Qualifiers: Hypertension type: essential hypertension Qualified Code(s): I10 - Essential (primary) hypertension
--- NOTE | 2018-04-14 07:28 | Anesthesia Evaluation PreOp ---
Date of Encounter: 04/14/18 Time of Encounter: 10:59 - Past History Planned Operation: Colonoscopy Cardiac History: ME (07/27/2015), HTN, Hyperlipidemia, Cardiac Stent (stent x 1 on 07/27/2015) Pulmonary History: Smoker, Snore, WERO Dx (uses CPAP) SPRING INTERN History: Denies Any Significant HX Other Medical History: Diabetes Type II Anesthesia History: Past Anesthesia (no prior general anesthesia) Alcohol Use: none Drug use: none Medications and Allergies Amlodipine Besylate 10 mg PO DAILY 04/13/18 [History] Aspirin [Lo-Dose Aspirin EC] 81 mg PO DAILY 04/13/18 [History] Clopidogrel [Plavix] 75 mg PO DAILY 04/13/18 [History] Glimepiride [Amaryl] 4 mg PO DAILY 04/13/18 [History] Lisinopril [Zestril] 40 mg PO DAILY 04/13/18 [History] Metoprolol [Lopressor] 12.5 mg PO BID 04/13/18 [History] 3 Allergy/AdvReac Type Severity Reaction Status Date / Time No Known Allergies Allergy Verified 07/27/15 13:48 - Meds/Allergy Pre-op Review Medications Reviewed: Yes Allergies Reviewed: Yes Beta Blockers on Current Med List: Yes If Beta Blockers taken, Date/Time (Last Dose taken): 04/14/2018 at 0756 Anesthesia Results - Labs 04/14/18 05:10 04/14/18 05:10 - Imaging EKG: report reviewed (04/12/2018 SINUS RHYTHM WITH OCCASIONAL ECTOPIC PREMATURE COMPLEXES, POSSIBLE INFERIOR MYOCARDIAL INFARCTION, PROBABLY OLD 07/28/2015 SINUS BRADYCARDIA INFERIOR MYOCARDIAL INFARCTION, OF INDETERMINATE AGE) Additional studies: 09/15/2015 Stress Impression: Exercise ECG is negative for ischemia. The exercise capacity was poor / limited due to knee pain. No chest pain. Gated EF = 64%. Perfusion imaging was negative for ischemia or infarct. 07/27/2015 Left Heart Cath Indications: STEMI Impressions: Triple vessel coronary artery disease. The left ventricle is normal and has normal contractility EF 60% Patient had successful PTCA/Drug-Eluting Stent placement in the distal RCA. Recommendations: Dual antiplatelet therapy. Optimal medical therapy of patient's disease. Aggressive risk factor modification. Anesthesia Exam Vital Signs/O2 Sat/Glucose, Most Recent Temp Pulse Resp BP Pulse Ox 99.1 F 78 20 131/73 95 04/14/18 06:36 04/14/18 06:36 04/14/18 06:36 04/14/18 06:36 04/14/18 06:36 Blood Glucose* 111 Height: 5'10"/1.78 m Weight: 212 lbs/96.4 kg NPO (# of Hours): 8 Pain Scale: 0 Pain Scale Used: Numeric (1 - 10) - HEENT Pupil (Motor): EOMI Mallampati: III Teeth: Missing, Poor dentition, Prosthesis Denture Type: Upper: Complete Oral Opening: Greater than 3 - SPRING INTERN LOC: Oriented [place] INTER[place] Motor: Normal RUE, Normal LUE, Normal RLE, Normal LLE, Normal Face [place] INTERN Sensory: Normal: RUE, LUE, RLE, LLE, Face - Cardiac Rhythm: Regular Murmur: None - Pulmonary Breath Sounds: bilateral Clear Respiratory Effort: Symmetrical Anesthesia Assess/Plan ASA Score: 3 Modified Eros Scale for Level of Consciousness: Cooperative, oriented, and tranquil Anesthetic Plan: MAC Monitoring Plan: Standard Monitors
[2018-04-14] MEDS: Insulin LISPRO 300 UNITS/3 ML VIAL SQ SCH ×4 (08:08→20:04)
[2018-04-14 10:26] LABS: Estimated Average Glucose 174 mg/dl; Hemoglobin A1C 7.7 %
[2018-04-14] MEDS ORDERED: Propofol 500 MG/50 ML INFUS..BTL ONE (11:19)
[2018-04-14] MEDS ORDERED: Lidocaine -MPF 2% 2 ML VIAL ONE (11:59)
--- NOTE | 2018-04-14 12:06 | Anesthesia Evaluation Post Op ---
Date of Encounter: 04/14/18 Time of Encounter: 12:00 - Vital Signs Vital Signs: BP 134/65 P 56 R 16 - Lungs Lungs: Clear Ascult./Percussion - Airway Airway: Non-obstructed - Cardiovascular Regular Rate, Baseline Rhythm - Mental Status Mental Status: Alert & Oriented, Answers Appropriately - Pain Pain Scale: 0 Pain Scale used: Numeric (1 - 10) - Nausea Vomiting Nausea Vomiting: Not Present - Hydration Hydration: NPO, Has not voided - Discharge PostOp Status: Transfer Patient to floor
--- NOTE | 2018-04-14 13:29 | Event Note ---
Date of Encounter: 04/14/18 Time of Encounter: 13:27 Colonoscopy results with 8 small polyps, several removed the others were fulgurated. Diverticulosis of sigmoid and descending colon. Internal/external hemorrhoids. No signs of blood in colon. will call with pathology results and when next colonoscopy is due in 2 weeks. Drink 8, 8 oz water daily, take a daily fiber supplement such as gummy fibers or metamucil capsules 2 po daily.
[2018-04-14] MEDS: Acetaminophen 325 MG TABLET PO PRN ×2 (17:11→22:59)
[2018-04-14] MEDS ORDERED: Ketorolac 15 MG/ML VIAL IVP ONE (20:07)
[2018-04-15] MEDS ORDERED: Baclofen 10 MG TABLET PO STA (01:35)
[2018-04-15 04:21] LABS: Basophils % 0.2 %; Eosinophils # 0.2 K/mcL (0.0-0.6); Eosinophils % 2.6 %; Hemoglobin 9.1 g/dL (12.9-16.9); Immature Granulocytes % 0.6 % (0-4); Lymphocytes # 1.5 K/mcL (0.6-4.6); Lymphocytes % 16.8 %; Mean Corpuscular HGB Conc 33.7 g/dL (31.6-35.5); Mean Corpuscular Hemoglobin 30.7 pg (28.0-33.3); Mean Corpuscular Volume 91.2 fL (83.0-100.0); Monocytes # 0.8 K/mcL (0.0-1.3); Monocytes % 9.1 %; Neutrophils # 6.2 K/mcL (1.6-8.9); Platelet Count 166 K/mcL (140-400); Red Blood Count 2.96 M/mcL (4.19-5.50); Red Cell Distribution Width 13.3 % (11.5-14.5); Segmented Neutrophils % 70.7 %
[2018-04-15 04:39] LABS: BUN/Creatinine Ratio 10 (6-26); Blood Urea Nitrogen 11 mg/dL (8-23); Calcium 8.1 mg/dL (8.6-10.3); Carbon Dioxide 28 mEq/L (23-29); Chloride 109 mEq/L (98-107); Glucose 188 mg/dL (70-105); Osmolality,Calculated 296 (280-300); Potassium 3.3 mEq/L (3.5-5.1); Sodium 141 mEq/L (136-145); eGFR For Non-African Americans > 60 (> 60)
[2018-04-15] MEDS: Pantoprazole 40 MG VIAL IVP SCH (05:09)
[2018-04-15 07:11] VITALS: BP 131/67
[2018-04-15] MEDS: Insulin LISPRO 300 UNITS/3 ML VIAL SQ SCH ×2 (07:21→07:47)
[2018-04-15] MEDS: 0.9 % Sodium Chloride 1,000 ML IVC SCH (07:22)
[2018-04-15] MEDS: Psyllium 1 PACKET POWD.PACK PO SCH ×2 (07:47→07:58)
[2018-04-15] MEDS ORDERED: amLODIPine 5 MG TABLET PO SCH (09:00)
[2018-04-15] MEDS ORDERED: Lisinopril 20 MG TABLET PO SCH (09:00)
[2018-04-15] MEDS ORDERED: *HR* Glimepiride 4 MG TABLET PO SCH (09:00)
--- NOTE | 2018-04-15 09:18 | Discharge Summary ---
- NOTES TO OUTPATIENT PROVIDER Notes to Outpatient Provider: f/u with PCP within a week and Surgery Dr. Limon in 2 weeks. Pt can restart asa and plavix in 2 days. Orders not resulted at time of discharge: Pending orders 04/14/18 11:52 Surgical Pathology [PTH] Routine Date of Encounter: 04/15/18 Time of Encounter: 09:12 - Discharge Diagnosis (1) Hypertension Priority: Secondary Status: Chronic Qualifiers: Hypertension type: essential hypertension Qualified Code(s): I10 - Essential (primary) hypertension (2) Diabetes mellitus Priority: Secondary Status: Chronic Qualifiers: Diabetes mellitus type: type 2 Diabetes mellitus complication status: with unspecified complications Qualified Code(s): E11.8 - Type 2 diabetes mellitus with unspecified complications (3) Lower gastrointestinal hemorrhage Priority: Primary Status: Acute (4) CAD (coronary artery disease) Priority: Secondary Status: Acute Qualifiers: Coronary Disease-Associated Artery/Lesion type: [place] artery [place] vs. transplanted heart: [place] heart Associated angina: without angina Qualified Code(s): I25.10 - Atherosclerotic heart disease of [place] coronary artery without angina pectoris (5) DVT prophylaxis Priority: Primary Status: Acute (6) SHANNAN (acute kidney injury) Priority: Primary Status: Acute Hospital course: Mr. Dupont is a 72 year old male Mr. Dupont is a 72 year old male with history of STEMI status post PCI back in July 2015, on dual antiplatelet therapy, hypertension, presented to the ED with 2 day history of bright red blood per rectum/hematochezia. States that it spontaneously started 2 days ago when he had 2 bloody bowel movements. No abdominal pain, recent change in bowel habits, fever/chills, or N/V. He states that he had -ve Cologuard test about 6 months ago. Nevertheless, he was worried hence he stopped taking his ASA/plavix but he had 4 more episodes yesterday hence decided to come to the ED for further evaluation. Just prior to the ED arrival, he had a near-syncopal episode as well. He has no chest pain, shortness of breath, cough, sputum production, or dysuria. No joint pain or rash. According to the EMS, he was hypotensive and was given IVF which he responded to. Labs show hemoglobin of 14.8 (baseline around 16-17), Cr 1.69 (Baseline 1.2), and glucose of 262. No coagulopathy or thrombocytopenia. Hgb continued to dropped in serial labs and was stable at 9.5 since 05/15. He underwent colonoscopy on 04/14 by general surgery which revealed several polyps, colon diverticula, and interan/external hemorrhoids. Polyps were removed and pathology reports are pending. Pt hgb was stable today, he has no further bloody stool. He is able to tolerate oral. He will be discharged home today. He was instructed to continue asa and plavix after 2 days per surgery recommendation. He will also f/u with PCP and surgery as scheduled. Discharge discussed with: patient Time spent discussing smoking cessation with patient: more than 10 minutes - Time Spent with Patient Total time spent providing and/or coordinating discharge services: Greater than 30 minutes - Discharge Medications Prescriptions: Omeprazole [PriLOSEC] 40 mg PO DAILY #30 capsule. Psevelyn [Metamucil Fiber Singles Packet] 1 packet PO TID #30 powd.pack Home Medications: Amlodipine Besylate 10 mg PO DAILY 04/13/18 [History] Glimepiride [Amaryl] 4 mg PO DAILY 04/13/18 [History] Lisinopril [Zestril] 40 mg PO DAILY 04/13/18 [History] Metoprolol [Lopressor] 12.5 mg PO BID 04/13/18 [History] Aspirin [Lo-Dose Aspirin EC] 81 mg PO DAILY #0 04/15/18 [Rx] Clopidogrel [Plavix] 75 mg PO DAILY #0 04/15/18 [Rx] Omeprazole [PriLOSEC] 40 mg PO DAILY #30 capsule. 04/15/18 [Rx] Psyllium [Metamucil Fiber Singles Packet] 1 packet PO TID #30 powd.pack [Rx] Allergies/Adverse Reactions: 3 Allergy/AdvReac Type Severity Reaction Status Date / Time No Known Allergies Allergy Verified 07/27/15 13:48 Date of admission: 04/12/18 22:50 Primary care physician: Sonia Luna Anticipated date of discharge: 04/15/18 - Constitutional Vitals: Temp Pulse Resp BP Pulse Ox 98.1 F 74 18 131/67 95 04/15/18 07:10 04/15/18 07:10 04/15/18 07:10 04/15/18 07:10 04/15/18 07:10 General appearance: Present: cooperative, A&O X 3, pleasant, answers questions appropriately Exam: PHYSICAL EXAMINATION: GENERAL APPEARANCE: The patient is alert, oriented and in no acute distress. HEENT: Head is normocephalic. The sinuses are nontender. Pupils are equal and reactive. The nares are patent. Oropharynx clear without lesions. NECK: Supple without lymphadenopathy. HEART: Regular rate and rhythm. LUNGS: No crackles or wheezes are heard. ABDOMEN: Soft, nontender, nondistended with good bowel sounds heard. Inguinal area is normal. EXTREMITIES: Without cyanosis, clubbing or edema. NEUROLOGICAL: Gross nonfocal. SKIN: Warm and dry without any rash. - Patient Status Disposition: Home, Self-Care Condition: Fair Functional capacity at discharge: independent ambulation Overall status at discharge: patient is progressing back to baseline - Discharge Instructions Follow Up With: Sonia Luna MD [Primary Care Provider] - - Diet and Activity Activity: increase activity as tolerated Diet: diabetic diet, low fat, low cholesterol, low salt diet - VTE Documentation of Mechanical Device: Intermittent pneumatic compression device
--- NOTE | 2018-04-15 12:38 | Electrocardiograph Report ---
[address] [place], [place] [address] Test Date: 2018-04-12 Pat Name: Jonathan Dupont Department: 102 Room: 2A22 Gender: M Photo Specialist: Francisco : 1945 Requested By: Wilbur Walker Order Number: [id number] Reading MD: Jaden Rivera Measurements Intervals [place] Rate: 66 P: 43 ME: 165 QRS: 19 QRSD: 101 T: 47 QT: 411 QTc: 424 Interpretive Statements SINUS RHYTHM WITH OCCASIONAL ECTOPIC PREMATURE COMPLEXES Electronically Signed On 04-15-2018 12:36:42 EDT by Jaden Rivera
== END 2018-04-15 10:07 | disposition home or self-care (01) ==
LOC: EMEROO 21:46 → 2ANU 21:46
PROVIDERS: ADMIT Family Medicine; ATTEND Family Medicine

== ENCOUNTER 2021-10-05 06:25 | Inpatient (IN) ==
[2021-10-05 08:43] LABS: Basophils % 0.2 %; Hematocrit 48.3 % (37.5-50.1); Hemoglobin 16.7 g/dL (12.9-16.9); Immature Granulocytes % 0.6 % (0-4); Lymphocytes # 1.1 K/mcL (0.6-4.6); Lymphocytes % 10.1 %; Mean Corpuscular HGB Conc 34.6 g/dL (31.6-35.5); Mean Corpuscular Hemoglobin 31.3 pg (28.0-33.3); Mean Corpuscular Volume 90.6 fL (83.0-100.0); Mean Platelet Volume 9.7 fL (9.4-12.4); Monocytes # 1.1 K/mcL (0.0-1.3); Monocytes % 9.5 %; Platelet Count 162 K/mcL (140-400); Red Blood Count 5.33 M/mcL (4.19-5.50); Red Cell Distribution Width 13.8 % (11.5-14.5); Segmented Neutrophils % 79.6 %; White Blood Count 11.3 K/mcL (4.3-11.1)
[2021-10-05 09:06] LABS: Troponin I 0.04 ng/mL (< 0.04)
[2021-10-05 09:30] LABS: Influenza A PCR Negative (Negative); Influenza B PCR Negative (Negative); Resp. Syncytial Virus PCR Negative (Negative)
[2021-10-05 09:38] LABS: SARS-CoV-2 by PCR (In House) Positive (Negative)
[2021-10-05 09:56] LABS: Calcium 8.9 mg/dL (8.6-10.3); Potassium 3.7 mEq/L (3.5-5.1)
[2021-10-05] MEDS ORDERED: Acetaminophen 325 MG TABLET PO PRN (10:05)
[2021-10-05] MEDS ORDERED: Ondansetron 4 MG/2 ML VIAL IVP PRN (10:06)
[2021-10-05] MEDS ORDERED: Naloxone 0.4 MG/ML INJ IVP PRN (10:06)
[2021-10-05] MEDS ORDERED: D5% in Water 1,000 ML IVC PRN (10:09)
[2021-10-05] MEDS ORDERED: *HR* Dextrose 50 % in Water (Syg) 50 ML SYRINGE IVP PRN (10:09)
[2021-10-05] MEDS ORDERED: Dextrose Gel 15 GM/37.5 ML TUBE PO PRN ×2 (10:09)
[2021-10-05] MEDS ORDERED: 0.9 % Sodium Chloride 1,000 ML IVC SCH (10:15)
[2021-10-05] MEDS: Insulin LISPRO 300 UNITS/3 ML VIAL SUBQ SCH ×3 (13:40→20:46)
[2021-10-05] MEDS: Ipratropium 1 PUFF INHALER IH SCH ×3 (14:01→20:25)
[2021-10-06] MEDS: Ipratropium 1 PUFF INHALER IH SCH ×6 (00:10→19:52)
[2021-10-06] MEDS: *HR* Enoxaparin 40 MG/0.4 ML SYRINGE SQ SCH (04:55)
[2021-10-06 06:20] LABS: Basophils % 0.1 %; Hemoglobin 15.9 g/dL (12.9-16.9); Immature Granulocytes % 0.6 % (0-4); Lymphocytes % 7.1 %; Mean Corpuscular HGB Conc 34.6 g/dL (31.6-35.5); Mean Corpuscular Hemoglobin 31.5 pg (28.0-33.3); Mean Corpuscular Volume 91.1 fL (83.0-100.0); Mean Platelet Volume 10.5 fL (9.4-12.4); Monocytes # 0.6 K/mcL (0.0-1.3); Monocytes % 4.2 %; Neutrophils # 12.3 K/mcL (1.6-8.9); Platelet Count 182 K/mcL (140-400); Red Blood Count 5.05 M/mcL (4.19-5.50); Red Cell Distribution Width 13.7 % (11.5-14.5)
[2021-10-06] MEDS: amLODIPine 5 MG TABLET PO SCH (09:21)
[2021-10-06] MEDS: Aspirin Enteric Coated 81 MG Tablet PO SCH (09:21)
[2021-10-06] MEDS: Insulin LISPRO 300 UNITS/3 ML VIAL SUBQ SCH ×4 (09:22→20:26)
[2021-10-06] MEDS: Azithromycin 500 MG in 0.9 % Sodium Chloride 250 ML IVPB SCH (12:21)
[2021-10-06] MEDS: cefTRIAXone 1,000 MG in 0.9 % Sodium Chloride Mini Bag 100 ML IVPB SCH (12:22)
[2021-10-06 13:22] LABS: Alanine Aminotransferase 22 Units/L (7-52); Albumin 3.6 g/dL (3.5-5.7); Albumin/Globulin Ratio 1.1 (1.1-2.2); Alkaline Phosphatase 63 Units/L (34-104); Aspartate Amino Transferase 30 Units/L (13-39); BUN/Creatinine Ratio 23 (6-26); Bilirubin,Direct 0.2 mg/dL (0.0-0.2); Bilirubin,Indirect 0.8 mg/dL (0.0-1.0); Blood Urea Nitrogen 31 mg/dL (8-23); C-Reactive Protein 159 mg/L (Less than 10); Calcium 8.8 mg/dL (8.6-10.3); Carbon Dioxide 28 mEq/L (23-29); Chloride 101 mEq/L (98-107); Globulin 3.2 g/dL (2.4-3.5); Glucose 237 mg/dL (70-105); Osmolality,Calculated 300 (280-300); Potassium 3.6 mEq/L (3.5-5.1); Sodium 138 mEq/L (136-145); Total Protein 6.8 g/dL (6.4-8.9); eGFR For African Americans > 60 (> 60); eGFR For Non-African Americans 52 (> 60)
[2021-10-07] MEDS: Ipratropium 1 PUFF INHALER IH SCH ×4 (00:39→11:45)
[2021-10-07 02:56] LABS: Alanine Aminotransferase 26 Units/L (7-52); Albumin 3.3 g/dL (3.5-5.7); Albumin/Globulin Ratio 1.1 (1.1-2.2); Alkaline Phosphatase 61 Units/L (34-104); Aspartate Amino Transferase 31 Units/L (13-39); BUN/Creatinine Ratio 31 (6-26); Bilirubin,Direct 0.2 mg/dL (0.0-0.2); Bilirubin,Indirect 0.4 mg/dL (0.0-1.0); Bilirubin,Total 0.6 mg/dL (0.3-1.0); Blood Urea Nitrogen 36 mg/dL (8-23); Calcium 8.5 mg/dL (8.6-10.3); Carbon Dioxide 27 mEq/L (23-29); Chloride 104 mEq/L (98-107); Globulin 2.9 g/dL (2.4-3.5); Glucose 261 mg/dL (70-105); Osmolality,Calculated 297 (280-300); Potassium 3.7 mEq/L (3.5-5.1); Sodium 135 mEq/L (136-145); Total Protein 6.2 g/dL (6.4-8.9); eGFR For African Americans > 60 (> 60); eGFR For Non-African Americans 60 (> 60)
[2021-10-07 03:03] LABS: Basophils % 0.1 %; Hematocrit 44.6 % (37.5-50.1); Immature Granulocytes % 0.2 % (0-4); Lymphocytes # 0.8 K/mcL (0.6-4.6); Lymphocytes % 5.2 %; Mean Corpuscular HGB Conc 33.6 g/dL (31.6-35.5); Mean Corpuscular Hemoglobin 30.5 pg (28.0-33.3); Mean Corpuscular Volume 90.8 fL (83.0-100.0); Mean Platelet Volume 10.8 fL (9.4-12.4); Monocytes # 0.7 K/mcL (0.0-1.3); Monocytes % 4.5 %; Platelet Count 187 K/mcL (140-400); Red Blood Count 4.91 M/mcL (4.19-5.50); Red Cell Distribution Width 13.3 % (11.5-14.5); White Blood Count 14.5 K/mcL (4.3-11.1)
[2021-10-07 04:23] VITALS: O2SAT 95
[2021-10-07] MEDS: *HR* Enoxaparin 40 MG/0.4 ML SYRINGE SQ SCH (04:49)
[2021-10-07 07:48] VITALS: BP 137/78; PULSE 63; TEMP 98
[2021-10-07] MEDS: Insulin LISPRO 300 UNITS/3 ML VIAL SUBQ SCH ×2 (08:38→12:08)
[2021-10-07] MEDS: amLODIPine 5 MG TABLET PO SCH (08:39)
[2021-10-07] MEDS: Aspirin Enteric Coated 81 MG Tablet PO SCH (08:39)
[2021-10-07] MEDS: Azithromycin 500 MG in 0.9 % Sodium Chloride 250 ML IVPB SCH (12:08)
[2021-10-07] MEDS: cefTRIAXone 1,000 MG in 0.9 % Sodium Chloride Mini Bag 100 ML IVPB SCH (12:08)
== END 2021-10-07 13:56 | disposition home or self-care (01) | DRG 177 ==
LOC: EMEROOARM 06:25 → INTOOBSV 13:44 → SUATTDRO 13:44 → 3BNU 13:44
PROVIDERS: ADMIT Family Medicine; ATTEND Internal Medicine

== ENCOUNTER 2021-10-12 07:55 | Inpatient (IN) ==
[2021-10-12 08:35] LABS: Basophils # 0.1 K/mcL (0.0-0.2); Basophils % 0.6 %; Eosinophils # 0.2 K/mcL (0.0-0.6); Eosinophils % 1.9 %; Hematocrit 49.4 % (37.5-50.1); Immature Granulocytes % 2.9 % (0-4); Lymphocytes # 0.9 K/mcL (0.6-4.6); Lymphocytes % 8.5 %; Mean Corpuscular HGB Conc 34.4 g/dL (31.6-35.5); Mean Corpuscular Hemoglobin 30.7 pg (28.0-33.3); Mean Corpuscular Volume 89.2 fL (83.0-100.0); Mean Platelet Volume 10.2 fL (9.4-12.4); Monocytes % 8.6 %; Neutrophils # 8.5 K/mcL (1.6-8.9); Platelet Count 283 K/mcL (140-400); Red Blood Count 5.54 M/mcL (4.19-5.50); Red Cell Distribution Width 13.3 % (11.5-14.5); Segmented Neutrophils % 77.5 %
[2021-10-12 09:06] LABS: BUN/Creatinine Ratio 20 (6-26); Blood Urea Nitrogen 25 mg/dL (8-23); Calcium 9.1 mg/dL (8.6-10.3); Carbon Dioxide 28 mEq/L (23-29); Chloride 100 mEq/L (98-107); Glucose 221 mg/dL (70-105); Osmolality,Calculated 295 (280-300); Potassium 3.7 mEq/L (3.5-5.1); Sodium 137 mEq/L (136-145); Troponin I 0.37 ng/mL (< 0.04); eGFR For African Americans > 60 (> 60); eGFR For Non-African Americans 56 (> 60)
[2021-10-12] MEDS ORDERED: Isovue-370 500 ML BOTTLE IVP ONE (09:57)
[2021-10-12] MEDS ORDERED: Naloxone 0.4 MG/ML INJ IVP PRN (10:37)
[2021-10-12] MEDS ORDERED: Ondansetron 4 MG/2 ML VIAL IVP PRN (10:37)
[2021-10-12] MEDS ORDERED: Furosemide 20 MG/2 ML VIAL IVP ONE (10:44)
[2021-10-12] MEDS ORDERED: Nitroglycerin 0.4 MG TAB.SUBL SL PRN (10:48)
[2021-10-12] MEDS ORDERED: D5% in Water 1,000 ML IVC PRN (10:48)
[2021-10-12] MEDS ORDERED: Dextrose Gel 15 GM/37.5 ML TUBE PO PRN (10:48)
[2021-10-12 10:59] LABS: INR 1.2; Prothrombin Time 13.3 Seconds (9.4-12.1)
[2021-10-12 11:02] LABS: Activated Partial Thrombo Time 26.5 Seconds (26.0-36.0)
[2021-10-12] MEDS ORDERED: Perflutren Lipid Microsphere 1.3 ML in 0.9 % Sodium Chloride 8.7 ML IVP PRN (11:18)
[2021-10-12] MEDS ORDERED: Vancomycin 1,500 MG/265 ML IV.SOLN IVPB SCH (12:00)
[2021-10-12] MEDS: Ipratropium 1 PUFF INHALER IH SCH ×4 (12:12→23:47)
[2021-10-12] MEDS: Insulin LISPRO 300 UNITS/3 ML VIAL SUBQ SCH ×3 (12:58→20:49)
[2021-10-12] MEDS ORDERED: *HR* Heparin 5,000 UNIT/ML VIAL IVP PRN ×2 (13:59)
[2021-10-12] MEDS ORDERED: *HR* Heparin 5,000 UNIT/ML VIAL IVP ONE (13:59)
[2021-10-12] MEDS: Heparin 25,000UNIT/250ML 1/2NS 25,000 UNIT/250 ML IV.SOLN IVC SCH (14:37)
[2021-10-12 15:33] LABS: Hematocrit 46.2 % (37.5-50.1); Hemoglobin 16.1 g/dL (12.9-16.9); Mean Corpuscular HGB Conc 34.8 g/dL (31.6-35.5); Mean Corpuscular Hemoglobin 31.1 pg (28.0-33.3); Mean Corpuscular Volume 89.2 fL (83.0-100.0); Mean Platelet Volume 10.4 fL (9.4-12.4); Platelet Count 257 K/mcL (140-400); Red Blood Count 5.18 M/mcL (4.19-5.50); Red Cell Distribution Width 13.4 % (11.5-14.5); White Blood Count 10.2 K/mcL (4.3-11.1)
[2021-10-12 15:53] LABS: Albumin 3.1 g/dL (3.5-5.7); Bilirubin,Direct 0.4 mg/dL (0.0-0.2); Bilirubin,Indirect 1.1 mg/dL (0.0-1.0); Bilirubin,Total 1.5 mg/dL (0.3-1.0); Total Protein 6.1 g/dL (6.4-8.9)
[2021-10-12] MEDS ORDERED: Piperacillin/Tazobactam 3.375 GM in 0.9 % Sodium Chloride Mini Bag 100 ML IVPB SCH (16:00)
[2021-10-12 16:02] LABS: Troponin I 0.18 ng/mL (< 0.04)
[2021-10-12 16:20] LABS: Heparin anti-factor XA UFH 0.97 IU/mL (0.30-0.70); INR 1.3; Prothrombin Time 14.7 Seconds (9.4-12.1)
[2021-10-12 19:43] LABS: Influenza A PCR Negative (Negative); Influenza B PCR Negative (Negative); Resp. Syncytial Virus PCR Negative (Negative)
[2021-10-12 19:45] LABS: SARS-CoV-2 by PCR (In House) Positive (Negative)
[2021-10-12] MEDS ORDERED: TOCILIZUMAB 800 MG in 0.9 % Sodium Chloride 100 ML IVPB ONE (21:00)
[2021-10-13] MEDS: Ipratropium 1 PUFF INHALER IH SCH ×5 (03:41→21:00)
[2021-10-13 05:44] LABS: Basophils % 0.3 %; Hematocrit 47.6 % (37.5-50.1); Hemoglobin 16.5 g/dL (12.9-16.9); Immature Granulocytes % 1.7 % (0-4); Lymphocytes # 0.7 K/mcL (0.6-4.6); Lymphocytes % 4.9 %; Mean Corpuscular HGB Conc 34.7 g/dL (31.6-35.5); Mean Corpuscular Hemoglobin 30.8 pg (28.0-33.3); Mean Corpuscular Volume 88.8 fL (83.0-100.0); Mean Platelet Volume 10.3 fL (9.4-12.4); Monocytes # 0.8 K/mcL (0.0-1.3); Monocytes % 5.4 %; Neutrophils # 12.1 K/mcL (1.6-8.9); Platelet Count 263 K/mcL (140-400); Red Blood Count 5.36 M/mcL (4.19-5.50); Red Cell Distribution Width 13.3 % (11.5-14.5); Segmented Neutrophils % 87.7 %; White Blood Count 13.8 K/mcL (4.3-11.1)
[2021-10-13] MEDS ORDERED: *HR* Enoxaparin 40 MG/0.4 ML SYRINGE SQ SCH (06:00)
[2021-10-13 06:15] LABS: Alanine Aminotransferase 25 Units/L (7-52); Albumin/Globulin Ratio 1.1 (1.1-2.2); Alkaline Phosphatase 78 Units/L (34-104); Aspartate Amino Transferase 23 Units/L (13-39); BUN/Creatinine Ratio 25 (6-26); Blood Urea Nitrogen 31 mg/dL (8-23); Calcium 8.3 mg/dL (8.6-10.3); Carbon Dioxide 26 mEq/L (23-29); Chloride 100 mEq/L (98-107); Globulin 2.7 g/dL (2.4-3.5); Glucose 274 mg/dL (70-105); Osmolality,Calculated 296 (280-300); Potassium 3.8 mEq/L (3.5-5.1); Sodium 135 mEq/L (136-145); Total Protein 5.7 g/dL (6.4-8.9); eGFR For African Americans > 60 (> 60); eGFR For Non-African Americans 57 (> 60)
[2021-10-13] MEDS: Aspirin Enteric Coated 81 MG Tablet PO SCH (09:55)
[2021-10-13] MEDS: Dexamethasone Sodium Phos/PF 10 MG/ML VIAL IVP SCH (09:55)
[2021-10-13] MEDS: Insulin LISPRO 300 UNITS/3 ML VIAL SUBQ SCH ×4 (10:19→21:21)
[2021-10-13] MEDS: Heparin 25,000UNIT/250ML 1/2NS 25,000 UNIT/250 ML IV.SOLN IVC SCH (16:04)
[2021-10-14] MEDS: Ipratropium 1 PUFF INHALER IH SCH ×7 (00:57→23:25)
[2021-10-14 05:46] LABS: Basophils # 0.1 K/mcL (0.0-0.2); Basophils % 0.2 %; Hematocrit 45.6 % (37.5-50.1); Hemoglobin 15.8 g/dL (12.9-16.9); Lymphocytes # 0.8 K/mcL (0.6-4.6); Lymphocytes % 3.5 %; Mean Corpuscular HGB Conc 34.6 g/dL (31.6-35.5); Mean Corpuscular Volume 89.6 fL (83.0-100.0); Mean Platelet Volume 10.3 fL (9.4-12.4); Monocytes # 0.7 K/mcL (0.0-1.3); Monocytes % 3.1 %; Neutrophils # 20.8 K/mcL (1.6-8.9); Platelet Count 304 K/mcL (140-400); Red Blood Count 5.09 M/mcL (4.19-5.50); Red Cell Distribution Width 13.1 % (11.5-14.5); Segmented Neutrophils % 92.2 %; White Blood Count 22.6 K/mcL (4.3-11.1)
[2021-10-14 06:11] LABS: BUN/Creatinine Ratio 29 (6-26); Blood Urea Nitrogen 32 mg/dL (8-23); Calcium 8.6 mg/dL (8.6-10.3); Carbon Dioxide 27 mEq/L (23-29); Chloride 100 mEq/L (98-107); Glucose 286 mg/dL (70-105); Osmolality,Calculated 295 (280-300); Potassium 4.1 mEq/L (3.5-5.1); Sodium 134 mEq/L (136-145); eGFR For African Americans > 60 (> 60); eGFR For Non-African Americans > 60 (> 60)
[2021-10-14] MEDS: Aspirin Enteric Coated 81 MG Tablet PO SCH (09:25)
[2021-10-14] MEDS: Dexamethasone Sodium Phos/PF 10 MG/ML VIAL IVP SCH (09:25)
[2021-10-14] MEDS: Insulin LISPRO 300 UNITS/3 ML VIAL SUBQ SCH ×4 (09:27→21:03)
[2021-10-14 11:03] LABS: C-Reactive Protein 95 mg/L (Less than 10)
[2021-10-14] MEDS: Heparin 25,000UNIT/250ML 1/2NS 25,000 UNIT/250 ML IV.SOLN IVC SCH (23:27)
[2021-10-15] MEDS: Ipratropium 1 PUFF INHALER IH SCH ×6 (03:25→23:33)
[2021-10-15 05:43] LABS: Basophils % 0.2 %; Hematocrit 46.4 % (37.5-50.1); Hemoglobin 15.8 g/dL (12.9-16.9); Immature Granulocytes % 1.3 % (0-4); Lymphocytes # 0.8 K/mcL (0.6-4.6); Lymphocytes % 3.4 %; Mean Corpuscular HGB Conc 34.1 g/dL (31.6-35.5); Mean Corpuscular Hemoglobin 30.5 pg (28.0-33.3); Mean Corpuscular Volume 89.6 fL (83.0-100.0); Mean Platelet Volume 10.1 fL (9.4-12.4); Monocytes # 0.8 K/mcL (0.0-1.3); Monocytes % 3.5 %; Neutrophils # 20.3 K/mcL (1.6-8.9); Platelet Count 314 K/mcL (140-400); Red Blood Count 5.18 M/mcL (4.19-5.50); Red Cell Distribution Width 13.2 % (11.5-14.5); Segmented Neutrophils % 91.6 %; White Blood Count 22.2 K/mcL (4.3-11.1)
[2021-10-15 06:00] LABS: BUN/Creatinine Ratio 29 (6-26); Blood Urea Nitrogen 36 mg/dL (8-23); Calcium 8.5 mg/dL (8.6-10.3); Carbon Dioxide 24 mEq/L (23-29); Chloride 102 mEq/L (98-107); Glucose 321 mg/dL (70-105); Osmolality,Calculated 301 (280-300); Potassium 4.1 mEq/L (3.5-5.1); Sodium 135 mEq/L (136-145); eGFR For African Americans > 60 (> 60); eGFR For Non-African Americans 55 (> 60)
[2021-10-15] MEDS: Aspirin Enteric Coated 81 MG Tablet PO SCH (07:23)
[2021-10-15] MEDS: Dexamethasone Sodium Phos/PF 10 MG/ML VIAL IVP SCH (07:23)
[2021-10-15] MEDS: Insulin LISPRO 300 UNITS/3 ML VIAL SUBQ SCH ×4 (07:24→21:54)
[2021-10-15] MEDS: Acetaminophen 325 MG TABLET PO PRN (21:53)
[2021-10-16] MEDS: Ipratropium 1 PUFF INHALER IH SCH ×6 (03:32→23:27)
[2021-10-16] MEDS: Aspirin Enteric Coated 81 MG Tablet PO SCH (07:57)
[2021-10-16] MEDS: Dexamethasone Sodium Phos/PF 10 MG/ML VIAL IVP SCH (07:58)
[2021-10-16] MEDS: Insulin LISPRO 300 UNITS/3 ML VIAL SUBQ SCH ×4 (07:58→20:02)
[2021-10-16 09:15] LABS: Basophils % 0.2 %; Hematocrit 50.9 % (37.5-50.1); Hemoglobin 17.2 g/dL (12.9-16.9); Immature Granulocytes % 1.1 % (0-4); Lymphocytes # 0.7 K/mcL (0.6-4.6); Lymphocytes % 4.3 %; Mean Corpuscular HGB Conc 33.8 g/dL (31.6-35.5); Mean Corpuscular Hemoglobin 30.7 pg (28.0-33.3); Mean Corpuscular Volume 90.9 fL (83.0-100.0); Mean Platelet Volume 10.1 fL (9.4-12.4); Monocytes # 0.4 K/mcL (0.0-1.3); Monocytes % 2.4 %; Neutrophils # 15.5 K/mcL (1.6-8.9); Platelet Count 312 K/mcL (140-400); Red Cell Distribution Width 13.3 % (11.5-14.5); White Blood Count 16.9 K/mcL (4.3-11.1)
[2021-10-16 09:24] LABS: Heparin anti-factor XA UFH 0.51 IU/mL (0.30-0.70)
[2021-10-16 09:35] LABS: BUN/Creatinine Ratio 28 (6-26); Blood Urea Nitrogen 32 mg/dL (8-23); C-Reactive Protein 34 mg/L (Less than 10); Calcium 8.4 mg/dL (8.6-10.3); Carbon Dioxide 25 mEq/L (23-29); Chloride 105 mEq/L (98-107); Glucose 223 mg/dL (70-105); Osmolality,Calculated 300 (280-300); Potassium 4.4 mEq/L (3.5-5.1); Sodium 138 mEq/L (136-145); eGFR For African Americans > 60 (> 60); eGFR For Non-African Americans > 60 (> 60)
[2021-10-16] MEDS: Heparin 25,000UNIT/250ML 1/2NS 25,000 UNIT/250 ML IV.SOLN IVC SCH ×2 (17:55→17:56)
[2021-10-17 02:00] LABS: Basophils % 0.2 %; Hematocrit 44.5 % (37.5-50.1); Hemoglobin 15.5 g/dL (12.9-16.9); Immature Granulocytes % 1.1 % (0-4); Lymphocytes # 0.6 K/mcL (0.6-4.6); Lymphocytes % 3.6 %; Mean Corpuscular HGB Conc 34.8 g/dL (31.6-35.5); Mean Corpuscular Hemoglobin 31.1 pg (28.0-33.3); Mean Corpuscular Volume 89.2 fL (83.0-100.0); Monocytes # 0.5 K/mcL (0.0-1.3); Monocytes % 3.3 %; Neutrophils # 14.6 K/mcL (1.6-8.9); Platelet Count 294 K/mcL (140-400); Red Blood Count 4.99 M/mcL (4.19-5.50); Red Cell Distribution Width 13.2 % (11.5-14.5); Segmented Neutrophils % 91.8 %; White Blood Count 15.9 K/mcL (4.3-11.1)
[2021-10-17 02:22] LABS: BUN/Creatinine Ratio 30 (6-26); Blood Urea Nitrogen 32 mg/dL (8-23); Carbon Dioxide 25 mEq/L (23-29); Chloride 106 mEq/L (98-107); Glucose 204 mg/dL (70-105); Osmolality,Calculated 299 (280-300); Potassium 4.2 mEq/L (3.5-5.1); Sodium 138 mEq/L (136-145); eGFR For African Americans > 60 (> 60); eGFR For Non-African Americans > 60 (> 60)
[2021-10-17] MEDS: Ipratropium 1 PUFF INHALER IH SCH ×6 (03:59→23:52)
[2021-10-17] MEDS: Insulin LISPRO 300 UNITS/3 ML VIAL SUBQ SCH ×4 (08:10→20:49)
[2021-10-17] MEDS: Aspirin Enteric Coated 81 MG Tablet PO SCH (08:11)
[2021-10-17] MEDS: Dexamethasone Sodium Phos/PF 10 MG/ML VIAL IVP SCH (08:11)
[2021-10-17] MEDS: Furosemide 20 MG/2 ML VIAL IVP SCH (20:18)
[2021-10-18] MEDS: Ipratropium 1 PUFF INHALER IH SCH ×5 (03:26→19:58)
[2021-10-18] MEDS: *HR* Enoxaparin 40 MG/0.4 ML SYRINGE SQ SCH (05:36)
[2021-10-18 07:41] LABS: Basophils % 0.2 %; Eosinophils % 0.3 %; Hematocrit 46.9 % (37.5-50.1); Hemoglobin 16.1 g/dL (12.9-16.9); Immature Granulocytes % 0.9 % (0-4); Lymphocytes # 0.7 K/mcL (0.6-4.6); Mean Corpuscular HGB Conc 34.3 g/dL (31.6-35.5); Mean Corpuscular Hemoglobin 30.7 pg (28.0-33.3); Mean Corpuscular Volume 89.3 fL (83.0-100.0); Mean Platelet Volume 10.2 fL (9.4-12.4); Monocytes # 0.2 K/mcL (0.0-1.3); Neutrophils # 10.8 K/mcL (1.6-8.9); Platelet Count 274 K/mcL (140-400); Red Blood Count 5.25 M/mcL (4.19-5.50); Red Cell Distribution Width 13.4 % (11.5-14.5); Segmented Neutrophils % 90.6 %; White Blood Count 11.9 K/mcL (4.3-11.1)
[2021-10-18 08:02] LABS: BUN/Creatinine Ratio 25 (6-26); Blood Urea Nitrogen 29 mg/dL (8-23); Calcium 8.2 mg/dL (8.6-10.3); Carbon Dioxide 27 mEq/L (23-29); Chloride 104 mEq/L (98-107); Glucose 210 mg/dL (70-105); Osmolality,Calculated 300 (280-300); Potassium 4.3 mEq/L (3.5-5.1); Sodium 139 mEq/L (136-145); eGFR For African Americans > 60 (> 60); eGFR For Non-African Americans > 60 (> 60)
[2021-10-18 08:16] LABS: C-Reactive Protein 14 mg/L (Less than 10)
[2021-10-18] MEDS: Furosemide 20 MG/2 ML VIAL IVP SCH ×2 (09:51→21:53)
[2021-10-18] MEDS: Aspirin Enteric Coated 81 MG Tablet PO SCH (09:51)
[2021-10-18] MEDS: lisinopriL 20 MG TABLET PO SCH (09:51)
[2021-10-18] MEDS: Dexamethasone Sodium Phos/PF 10 MG/ML VIAL IVP SCH (09:51)
[2021-10-18] MEDS: Insulin LISPRO 300 UNITS/3 ML VIAL SUBQ SCH ×4 (09:57→21:54)
[2021-10-19] MEDS: Ipratropium 1 PUFF INHALER IH SCH ×6 (00:10→20:41)
[2021-10-19 02:13] LABS: Basophils % 0.1 %; Hematocrit 46.7 % (37.5-50.1); Immature Granulocytes % 0.6 % (0-4); Lymphocytes # 0.5 K/mcL (0.6-4.6); Lymphocytes % 3.3 %; Mean Corpuscular HGB Conc 34.3 g/dL (31.6-35.5); Mean Corpuscular Hemoglobin 30.1 pg (28.0-33.3); Mean Corpuscular Volume 87.9 fL (83.0-100.0); Mean Platelet Volume 10.2 fL (9.4-12.4); Monocytes # 0.3 K/mcL (0.0-1.3); Monocytes % 2.2 %; Neutrophils # 13.2 K/mcL (1.6-8.9); Platelet Count 260 K/mcL (140-400); Red Blood Count 5.31 M/mcL (4.19-5.50); Red Cell Distribution Width 13.4 % (11.5-14.5); Segmented Neutrophils % 93.8 %; White Blood Count 14.1 K/mcL (4.3-11.1)
[2021-10-19 02:44] LABS: BUN/Creatinine Ratio 31 (6-26); Blood Urea Nitrogen 34 mg/dL (8-23); Carbon Dioxide 26 mEq/L (23-29); Chloride 100 mEq/L (98-107); Glucose 240 mg/dL (70-105); Osmolality,Calculated 297 (280-300); Potassium 4.3 mEq/L (3.5-5.1); Sodium 136 mEq/L (136-145); eGFR For African Americans > 60 (> 60); eGFR For Non-African Americans > 60 (> 60)
[2021-10-19] MEDS: *HR* Enoxaparin 40 MG/0.4 ML SYRINGE SQ SCH (06:08)
[2021-10-19] MEDS: Aspirin Enteric Coated 81 MG Tablet PO SCH (08:01)
[2021-10-19] MEDS: lisinopriL 20 MG TABLET PO SCH (08:01)
[2021-10-19] MEDS: Dexamethasone Sodium Phos/PF 10 MG/ML VIAL IVP SCH (08:02)
[2021-10-19] MEDS: Furosemide 20 MG/2 ML VIAL IVP SCH ×2 (08:03→20:13)
[2021-10-19] MEDS: Insulin LISPRO 300 UNITS/3 ML VIAL SUBQ SCH ×4 (08:04→20:13)
[2021-10-19] MEDS: Insulin DETEMIR 100 UNIT/ML X5UNITS SUBQ SCH (20:15)
[2021-10-20] MEDS: Ipratropium 1 PUFF INHALER IH SCH ×7 (00:22→23:19)
[2021-10-20 03:33] LABS: Basophils % 0.1 %; Hematocrit 45.6 % (37.5-50.1); Immature Granulocytes % 0.6 % (0-4); Lymphocytes # 0.5 K/mcL (0.6-4.6); Lymphocytes % 2.9 %; Mean Corpuscular HGB Conc 35.1 g/dL (31.6-35.5); Mean Corpuscular Hemoglobin 31.2 pg (28.0-33.3); Mean Corpuscular Volume 88.9 fL (83.0-100.0); Mean Platelet Volume 10.2 fL (9.4-12.4); Monocytes # 0.4 K/mcL (0.0-1.3); Monocytes % 2.5 %; Neutrophils # 15.8 K/mcL (1.6-8.9); Platelet Count 261 K/mcL (140-400); Red Blood Count 5.13 M/mcL (4.19-5.50); Red Cell Distribution Width 13.4 % (11.5-14.5); Segmented Neutrophils % 93.9 %; White Blood Count 16.8 K/mcL (4.3-11.1)
[2021-10-20 03:45] LABS: BUN/Creatinine Ratio 32 (6-26); Blood Urea Nitrogen 39 mg/dL (8-23); Calcium 7.7 mg/dL (8.6-10.3); Carbon Dioxide 23 mEq/L (23-29); Chloride 103 mEq/L (98-107); Glucose 256 mg/dL (70-105); Magnesium 2.2 mg/dL (1.6-2.6); Osmolality,Calculated 304 (280-300); Phosphorous 3.9 mg/dL (2.7-4.5); Potassium 4.2 mEq/L (3.5-5.1); Sodium 138 mEq/L (136-145); eGFR For African Americans > 60 (> 60); eGFR For Non-African Americans 58 (> 60)
[2021-10-20] MEDS: *HR* Enoxaparin 40 MG/0.4 ML SYRINGE SQ SCH (06:14)
[2021-10-20] MEDS: Furosemide 20 MG/2 ML VIAL IVP SCH (09:22)
[2021-10-20] MEDS: Dexamethasone Sodium Phos/PF 10 MG/ML VIAL IVP SCH (09:22)
[2021-10-20] MEDS: lisinopriL 20 MG TABLET PO SCH (09:22)
[2021-10-20] MEDS: Aspirin Enteric Coated 81 MG Tablet PO SCH (09:22)
[2021-10-20] MEDS: Insulin LISPRO 300 UNITS/3 ML VIAL SUBQ SCH ×5 (09:23→20:37)
[2021-10-20] MEDS: Insulin DETEMIR 100 UNIT/ML X5UNITS SUBQ SCH ×2 (09:24→20:36)
[2021-10-21] MEDS: Ipratropium 1 PUFF INHALER IH SCH ×6 (04:32→23:58)
[2021-10-21] MEDS: *HR* Enoxaparin 40 MG/0.4 ML SYRINGE SQ SCH (06:10)
[2021-10-21 06:11] LABS: Basophils % 0.1 %; Hematocrit 44.1 % (37.5-50.1); Immature Granulocytes % 0.4 % (0-4); Lymphocytes # 0.4 K/mcL (0.6-4.6); Lymphocytes % 2.9 %; Mean Corpuscular Hemoglobin 30.3 pg (28.0-33.3); Mean Corpuscular Volume 89.1 fL (83.0-100.0); Mean Platelet Volume 10.7 fL (9.4-12.4); Monocytes # 0.3 K/mcL (0.0-1.3); Monocytes % 2.2 %; Neutrophils # 13.2 K/mcL (1.6-8.9); Nucleated Red Blood Cells 0.1 /100 WBC (0); Platelet Count 262 K/mcL (140-400); Red Blood Count 4.95 M/mcL (4.19-5.50); Red Cell Distribution Width 13.7 % (11.5-14.5); Segmented Neutrophils % 94.4 %
[2021-10-21 06:43] LABS: BUN/Creatinine Ratio 36 (6-26); Blood Urea Nitrogen 42 mg/dL (8-23); Carbon Dioxide 25 mEq/L (23-29); Chloride 102 mEq/L (98-107); Ferritin 578 ng/mL (20-250); Glucose 213 mg/dL (70-105); Lactate Dehydrogenase 477 Units/L (140-271); Osmolality,Calculated 301 (280-300); Phosphorous 3.9 mg/dL (2.7-4.5); Potassium 3.9 mEq/L (3.5-5.1); Sodium 137 mEq/L (136-145); eGFR For African Americans > 60 (> 60); eGFR For Non-African Americans 60 (> 60)
[2021-10-21 07:19] LABS: Magnesium 2.2 mg/dL (1.6-2.6)
[2021-10-21] MEDS ORDERED: Isovue-370 500 ML BOTTLE IVP ONE (09:10)
[2021-10-21] MEDS: Aspirin Enteric Coated 81 MG Tablet PO SCH (10:00)
[2021-10-21] MEDS: Furosemide 20 MG TABLET PO SCH (10:00)
[2021-10-21] MEDS: Dexamethasone Sodium Phos/PF 10 MG/ML VIAL IVP SCH (10:00)
[2021-10-21] MEDS: Insulin DETEMIR 100 UNIT/ML X5UNITS SUBQ SCH ×2 (10:00→21:18)
[2021-10-21] MEDS: lisinopriL 20 MG TABLET PO SCH (10:00)
[2021-10-21] MEDS: Insulin LISPRO 300 UNITS/3 ML VIAL SUBQ SCH ×7 (10:01→21:21)
[2021-10-21] MEDS: GuaiFENesin/Dextromethorphan TABLET PO SCH ×2 (10:08→21:18)
[2021-10-21] MEDS: Cholecalciferol (D-3) 1,000 UNIT (25MCG) TABLET PO SCH (21:18)
[2021-10-21] MEDS: Ascorbic Acid 500 MG TABLET PO SCH (21:18)
[2021-10-21] MEDS: ELDERBERRY EXTRACT PO SCH (21:31)
[2021-10-22 01:17] LABS: Basophils % 0.1 %; Hematocrit 42.6 % (37.5-50.1); Hemoglobin 14.6 g/dL (12.9-16.9); Immature Granulocytes % 0.6 % (0-4); Lymphocytes # 0.3 K/mcL (0.6-4.6); Lymphocytes % 2.3 %; Mean Corpuscular HGB Conc 34.3 g/dL (31.6-35.5); Mean Corpuscular Hemoglobin 30.1 pg (28.0-33.3); Mean Corpuscular Volume 87.8 fL (83.0-100.0); Mean Platelet Volume 10.2 fL (9.4-12.4); Monocytes # 0.3 K/mcL (0.0-1.3); Monocytes % 1.7 %; Neutrophils # 13.8 K/mcL (1.6-8.9); Platelet Count 247 K/mcL (140-400); Red Blood Count 4.85 M/mcL (4.19-5.50); Red Cell Distribution Width 13.7 % (11.5-14.5); Segmented Neutrophils % 95.3 %; White Blood Count 14.5 K/mcL (4.3-11.1)
[2021-10-22 01:41] LABS: BUN/Creatinine Ratio 32 (6-26); Blood Urea Nitrogen 42 mg/dL (8-23); Calcium 7.9 mg/dL (8.6-10.3); Carbon Dioxide 24 mEq/L (23-29); Chloride 102 mEq/L (98-107); Glucose 255 mg/dL (70-105); Magnesium 2.2 mg/dL (1.6-2.6); Osmolality,Calculated 297 (280-300); Phosphorous 3.9 mg/dL (2.7-4.5); Potassium 4.2 mEq/L (3.5-5.1); Sodium 134 mEq/L (136-145); eGFR For African Americans > 60 (> 60); eGFR For Non-African Americans 54 (> 60)
[2021-10-22] MEDS: Ipratropium 1 PUFF INHALER IH SCH ×5 (04:05→19:50)
[2021-10-22] MEDS: *HR* Enoxaparin 40 MG/0.4 ML SYRINGE SQ SCH (06:19)
[2021-10-22] MEDS: Aspirin Enteric Coated 81 MG Tablet PO SCH (09:15)
[2021-10-22] MEDS: Furosemide 20 MG TABLET PO SCH (09:15)
[2021-10-22] MEDS: lisinopriL 20 MG TABLET PO SCH (09:15)
[2021-10-22] MEDS: Ascorbic Acid 500 MG TABLET PO SCH (09:15)
[2021-10-22] MEDS: GuaiFENesin/Dextromethorphan TABLET PO SCH ×2 (09:15→19:46)
[2021-10-22] MEDS: Dexamethasone Sodium Phos/PF 10 MG/ML VIAL IVP SCH (09:16)
[2021-10-22] MEDS: Cholecalciferol (D-3) 1,000 UNIT (25MCG) TABLET PO SCH (09:16)
[2021-10-22] MEDS: Insulin LISPRO 300 UNITS/3 ML VIAL SUBQ SCH ×7 (09:16→19:47)
[2021-10-22] MEDS: Insulin DETEMIR 100 UNIT/ML X5UNITS SUBQ SCH ×2 (09:22→19:49)
[2021-10-22] MEDS: ELDERBERRY EXTRACT PO SCH (09:22)
[2021-10-23] MEDS: Ipratropium 1 PUFF INHALER IH SCH ×7 (00:20→23:10)
[2021-10-23 02:36] LABS: BUN/Creatinine Ratio 30 (6-26); Blood Urea Nitrogen 37 mg/dL (8-23); Calcium 8.4 mg/dL (8.6-10.3); Carbon Dioxide 20 mEq/L (23-29); Chloride 105 mEq/L (98-107); Glucose 214 mg/dL (70-105); Magnesium 2.1 mg/dL (1.6-2.6); Osmolality,Calculated 295 (280-300); Phosphorous 3.5 mg/dL (2.7-4.5); Potassium 4.8 mEq/L (3.5-5.1); Sodium 135 mEq/L (136-145); eGFR For African Americans > 60 (> 60); eGFR For Non-African Americans 57 (> 60)
[2021-10-23] MEDS: *HR* Enoxaparin 40 MG/0.4 ML SYRINGE SQ SCH (05:50)
[2021-10-23] MEDS: GuaiFENesin/Dextromethorphan TABLET PO SCH ×2 (09:13→20:29)
[2021-10-23] MEDS: Insulin DETEMIR 100 UNIT/ML X5UNITS SUBQ SCH ×2 (09:13→20:31)
[2021-10-23] MEDS: Cholecalciferol (D-3) 1,000 UNIT (25MCG) TABLET PO SCH (09:13)
[2021-10-23] MEDS: Ascorbic Acid 500 MG TABLET PO SCH (09:13)
[2021-10-23] MEDS: Dexamethasone Sodium Phos/PF 10 MG/ML VIAL IVP SCH (09:13)
[2021-10-23] MEDS: Aspirin Enteric Coated 81 MG Tablet PO SCH (09:13)
[2021-10-23] MEDS: lisinopriL 20 MG TABLET PO SCH (09:13)
[2021-10-23] MEDS: Furosemide 20 MG TABLET PO SCH (09:13)
[2021-10-23] MEDS: Insulin LISPRO 300 UNITS/3 ML VIAL SUBQ SCH ×7 (09:14→20:30)
[2021-10-23] MEDS: ELDERBERRY EXTRACT PO SCH (09:15)
[2021-10-23] MEDS: Acetaminophen 325 MG TABLET PO PRN (15:47)
[2021-10-24 03:07] LABS: Basophils % 0.1 %; Hematocrit 46.3 % (37.5-50.1); Hemoglobin 16.1 g/dL (12.9-16.9); Immature Granulocytes % 0.7 % (0-4); Lymphocytes # 0.4 K/mcL (0.6-4.6); Lymphocytes % 3.1 %; Mean Corpuscular HGB Conc 34.8 g/dL (31.6-35.5); Mean Corpuscular Hemoglobin 30.8 pg (28.0-33.3); Mean Corpuscular Volume 88.7 fL (83.0-100.0); Mean Platelet Volume 10.6 fL (9.4-12.4); Monocytes # 0.3 K/mcL (0.0-1.3); Monocytes % 1.9 %; Neutrophils # 13.2 K/mcL (1.6-8.9); Platelet Count 212 K/mcL (140-400); Red Blood Count 5.22 M/mcL (4.19-5.50); Red Cell Distribution Width 14.2 % (11.5-14.5); Segmented Neutrophils % 94.2 %
[2021-10-24] MEDS: Ipratropium 1 PUFF INHALER IH SCH ×6 (03:22→23:59)
[2021-10-24 03:25] LABS: BUN/Creatinine Ratio 30 (6-26); Blood Urea Nitrogen 38 mg/dL (8-23); Calcium 8.1 mg/dL (8.6-10.3); Carbon Dioxide 25 mEq/L (23-29); Chloride 103 mEq/L (98-107); Glucose 256 mg/dL (70-105); Osmolality,Calculated 296 (280-300); Phosphorous 3.8 mg/dL (2.7-4.5); Potassium 4.8 mEq/L (3.5-5.1); Sodium 134 mEq/L (136-145); eGFR For African Americans > 60 (> 60); eGFR For Non-African Americans 55 (> 60)
[2021-10-24] MEDS: *HR* Enoxaparin 40 MG/0.4 ML SYRINGE SQ SCH (05:15)
[2021-10-24] MEDS: lisinopriL 20 MG TABLET PO SCH (07:56)
[2021-10-24] MEDS: GuaiFENesin/Dextromethorphan TABLET PO SCH ×2 (07:56→20:52)
[2021-10-24] MEDS: Aspirin Enteric Coated 81 MG Tablet PO SCH (07:56)
[2021-10-24] MEDS: Furosemide 20 MG TABLET PO SCH (07:56)
[2021-10-24] MEDS: Cholecalciferol (D-3) 1,000 UNIT (25MCG) TABLET PO SCH (07:56)
[2021-10-24] MEDS: Insulin LISPRO 300 UNITS/3 ML VIAL SUBQ SCH ×7 (07:57→20:51)
[2021-10-24] MEDS: Ascorbic Acid 500 MG TABLET PO SCH (07:57)
[2021-10-24] MEDS: Dexamethasone Sodium Phos/PF 10 MG/ML VIAL IVP SCH (07:57)
[2021-10-24] MEDS: ELDERBERRY EXTRACT PO SCH (07:58)
[2021-10-24] MEDS: Insulin DETEMIR 100 UNIT/ML X5UNITS SUBQ SCH ×2 (08:02→20:51)
[2021-10-25 01:02] LABS: BUN/Creatinine Ratio 31 (6-26); Blood Urea Nitrogen 35 mg/dL (8-23); Calcium 8.1 mg/dL (8.6-10.3); Carbon Dioxide 25 mEq/L (23-29); Chloride 105 mEq/L (98-107); Glucose 217 mg/dL (70-105); Lactate Dehydrogenase 458 Units/L (140-271); Magnesium 1.9 mg/dL (1.6-2.6); Osmolality,Calculated 299 (280-300); Phosphorous 3.3 mg/dL (2.7-4.5); Potassium 4.2 mEq/L (3.5-5.1); Sodium 137 mEq/L (136-145); eGFR For African Americans > 60 (> 60); eGFR For Non-African Americans > 60 (> 60)
[2021-10-25 01:06] LABS: Fibrinogen 105 mg/dL (169-393)
[2021-10-25 01:11] LABS: D-Dimer 3070 ng/mLFEU (0-500)
[2021-10-25 01:20] LABS: Ferritin 516 ng/mL (20-250)
[2021-10-25] MEDS: Ipratropium 1 PUFF INHALER IH SCH ×5 (04:02→20:32)
[2021-10-25] MEDS: *HR* Enoxaparin 40 MG/0.4 ML SYRINGE SQ SCH (04:59)
[2021-10-25] MEDS: Furosemide 20 MG TABLET PO SCH (08:34)
[2021-10-25] MEDS: Aspirin Enteric Coated 81 MG Tablet PO SCH (08:34)
[2021-10-25] MEDS: GuaiFENesin/Dextromethorphan TABLET PO SCH ×2 (08:34→22:15)
[2021-10-25] MEDS: lisinopriL 20 MG TABLET PO SCH (08:34)
[2021-10-25] MEDS: Cholecalciferol (D-3) 1,000 UNIT (25MCG) TABLET PO SCH (08:34)
[2021-10-25] MEDS: Insulin DETEMIR 100 UNIT/ML X5UNITS SUBQ SCH ×2 (08:35→22:16)
[2021-10-25] MEDS: Dexamethasone Sodium Phos/PF 10 MG/ML VIAL IVP SCH (08:35)
[2021-10-25] MEDS: Insulin LISPRO 300 UNITS/3 ML VIAL SUBQ SCH ×7 (08:35→22:15)
[2021-10-25] MEDS: Ascorbic Acid 500 MG TABLET PO SCH (08:35)
[2021-10-25] MEDS: ELDERBERRY EXTRACT PO SCH (08:36)
[2021-10-25] MEDS: Acetaminophen 325 MG TABLET PO PRN (16:23)
[2021-10-26] MEDS: Ipratropium 1 PUFF INHALER IH SCH ×7 (00:22→23:10)
[2021-10-26] MEDS: *HR* Enoxaparin 40 MG/0.4 ML SYRINGE SQ SCH (05:29)
[2021-10-26] MEDS: Insulin LISPRO 300 UNITS/3 ML VIAL SUBQ SCH ×7 (07:59→20:44)
[2021-10-26] MEDS: Dexamethasone Sodium Phos/PF 10 MG/ML VIAL IVP SCH (08:04)
[2021-10-26] MEDS: Insulin DETEMIR 100 UNIT/ML X5UNITS SUBQ SCH ×2 (08:05→20:44)
[2021-10-26] MEDS: Furosemide 20 MG TABLET PO SCH (08:05)
[2021-10-26] MEDS: Aspirin Enteric Coated 81 MG Tablet PO SCH (08:05)
[2021-10-26] MEDS: Cholecalciferol (D-3) 1,000 UNIT (25MCG) TABLET PO SCH (08:05)
[2021-10-26] MEDS: GuaiFENesin/Dextromethorphan TABLET PO SCH ×2 (08:05→20:45)
[2021-10-26] MEDS: Ascorbic Acid 500 MG TABLET PO SCH (08:05)
[2021-10-26] MEDS: lisinopriL 20 MG TABLET PO SCH (08:05)
[2021-10-26] MEDS: ELDERBERRY EXTRACT PO SCH (08:06)
[2021-10-27 01:21] LABS: Basophils % 0.1 %; Eosinophils # 0.1 K/mcL (0.0-0.6); Eosinophils % 0.4 %; Hematocrit 45.9 % (37.5-50.1); Hemoglobin 15.9 g/dL (12.9-16.9); Immature Granulocytes % 0.4 % (0-4); Lymphocytes # 0.6 K/mcL (0.6-4.6); Lymphocytes % 3.7 %; Mean Corpuscular HGB Conc 34.6 g/dL (31.6-35.5); Mean Corpuscular Hemoglobin 31.4 pg (28.0-33.3); Mean Corpuscular Volume 90.5 fL (83.0-100.0); Mean Platelet Volume 10.5 fL (9.4-12.4); Monocytes # 0.4 K/mcL (0.0-1.3); Monocytes % 2.8 %; Platelet Count 163 K/mcL (140-400); Red Blood Count 5.07 M/mcL (4.19-5.50); Red Cell Distribution Width 15.2 % (11.5-14.5); Segmented Neutrophils % 92.6 %; White Blood Count 15.1 K/mcL (4.3-11.1)
[2021-10-27 01:43] LABS: BUN/Creatinine Ratio 32 (6-26); Blood Urea Nitrogen 35 mg/dL (8-23); C-Reactive Protein < 5 mg/L (Less than 10); Calcium 7.7 mg/dL (8.6-10.3); Carbon Dioxide 26 mEq/L (23-29); Chloride 105 mEq/L (98-107); Glucose 189 mg/dL (70-105); Osmolality,Calculated 297 (280-300); Potassium 4.3 mEq/L (3.5-5.1); Sodium 137 mEq/L (136-145); eGFR For African Americans > 60 (> 60); eGFR For Non-African Americans > 60 (> 60)
[2021-10-27] MEDS: Ipratropium 1 PUFF INHALER IH SCH ×6 (04:03→23:28)
[2021-10-27] MEDS: *HR* Enoxaparin 40 MG/0.4 ML SYRINGE SQ SCH (05:41)
[2021-10-27] MEDS: Cholecalciferol (D-3) 1,000 UNIT (25MCG) TABLET PO SCH (08:30)
[2021-10-27] MEDS: lisinopriL 20 MG TABLET PO SCH (08:30)
[2021-10-27] MEDS: Ascorbic Acid 500 MG TABLET PO SCH (08:30)
[2021-10-27] MEDS: Dexamethasone Sodium Phos/PF 10 MG/ML VIAL IVP SCH (08:31)
[2021-10-27] MEDS: GuaiFENesin/Dextromethorphan TABLET PO SCH ×2 (08:31→20:59)
[2021-10-27] MEDS: Aspirin Enteric Coated 81 MG Tablet PO SCH (08:31)
[2021-10-27] MEDS: Furosemide 20 MG TABLET PO SCH ×2 (08:32→17:48)
[2021-10-27] MEDS: Insulin DETEMIR 100 UNIT/ML X5UNITS SUBQ SCH ×2 (08:32→21:03)
[2021-10-27] MEDS: Insulin LISPRO 300 UNITS/3 ML VIAL SUBQ SCH ×7 (08:33→21:14)
[2021-10-27] MEDS: ELDERBERRY EXTRACT PO SCH (09:30)
[2021-10-27] MEDS ORDERED: *HR* LORazepam 2 MG/ML VIAL IVP ONE (12:07)
[2021-10-28 02:33] LABS: Basophils % 0.1 %; Eosinophils % 0.1 %; Hematocrit 46.1 % (37.5-50.1); Hemoglobin 15.8 g/dL (12.9-16.9); Immature Granulocytes % 0.4 % (0-4); Lymphocytes # 0.4 K/mcL (0.6-4.6); Mean Corpuscular HGB Conc 34.3 g/dL (31.6-35.5); Mean Corpuscular Hemoglobin 31.5 pg (28.0-33.3); Mean Platelet Volume 10.6 fL (9.4-12.4); Monocytes # 0.4 K/mcL (0.0-1.3); Monocytes % 3.3 %; Neutrophils # 12.6 K/mcL (1.6-8.9); Platelet Count 163 K/mcL (140-400); Red Blood Count 5.01 M/mcL (4.19-5.50); Red Cell Distribution Width 15.3 % (11.5-14.5); Segmented Neutrophils % 93.1 %; White Blood Count 13.5 K/mcL (4.3-11.1)
[2021-10-28 02:53] LABS: Alanine Aminotransferase 28 Units/L (7-52); Albumin 2.6 g/dL (3.5-5.7); Albumin/Globulin Ratio 1.1 (1.1-2.2); Alkaline Phosphatase 109 Units/L (34-104); Aspartate Amino Transferase 32 Units/L (13-39); BUN/Creatinine Ratio 30 (6-26); Bilirubin,Total 0.6 mg/dL (0.3-1.0); Blood Urea Nitrogen 30 mg/dL (8-23); Carbon Dioxide 28 mEq/L (23-29); Chloride 103 mEq/L (98-107); Globulin 2.3 g/dL (2.4-3.5); Glucose 253 mg/dL (70-105); Osmolality,Calculated 299 (280-300); Potassium 4.2 mEq/L (3.5-5.1); Sodium 137 mEq/L (136-145); Total Protein 4.9 g/dL (6.4-8.9); eGFR For African Americans > 60 (> 60); eGFR For Non-African Americans > 60 (> 60)
[2021-10-28] MEDS: Ipratropium 1 PUFF INHALER IH SCH ×6 (04:08→23:32)
[2021-10-28] MEDS: *HR* Enoxaparin 40 MG/0.4 ML SYRINGE SQ SCH (05:12)
[2021-10-28] MEDS ORDERED: *HR* LORazepam 2 MG/ML VIAL IVP ONE (05:54)
[2021-10-28] MEDS: Ascorbic Acid 500 MG TABLET PO SCH (09:18)
[2021-10-28] MEDS: GuaiFENesin/Dextromethorphan TABLET PO SCH ×2 (09:18→21:01)
[2021-10-28] MEDS: Cholecalciferol (D-3) 1,000 UNIT (25MCG) TABLET PO SCH (09:18)
[2021-10-28] MEDS: Aspirin Enteric Coated 81 MG Tablet PO SCH (09:18)
[2021-10-28] MEDS: Dexamethasone Sodium Phos/PF 10 MG/ML VIAL IVP SCH (09:19)
[2021-10-28] MEDS: Furosemide 20 MG TABLET PO SCH ×2 (09:19→18:08)
[2021-10-28] MEDS: lisinopriL 20 MG TABLET PO SCH (09:19)
[2021-10-28] MEDS: Insulin LISPRO 300 UNITS/3 ML VIAL SUBQ SCH ×7 (09:20→21:02)
[2021-10-28] MEDS: ELDERBERRY EXTRACT PO SCH (09:21)
[2021-10-28] MEDS: Insulin DETEMIR 100 UNIT/ML X5UNITS SUBQ SCH ×2 (09:26→21:01)
[2021-10-28] MEDS ORDERED: Loratadine 10 MG TABLET PO STA (11:10)
[2021-10-28] MEDS: Fluticasone Propionate Nasal 50 MCG/SPRAY BOTTLE NS SCH (13:11)
[2021-10-29 01:45] LABS: Basophils % 0.1 %; Eosinophils % 0.1 %; Hematocrit 44.6 % (37.5-50.1); Immature Granulocytes % 0.5 % (0-4); Lymphocytes # 0.4 K/mcL (0.6-4.6); Lymphocytes % 3.3 %; Mean Corpuscular HGB Conc 33.6 g/dL (31.6-35.5); Mean Corpuscular Hemoglobin 30.7 pg (28.0-33.3); Mean Corpuscular Volume 91.4 fL (83.0-100.0); Mean Platelet Volume 10.5 fL (9.4-12.4); Monocytes # 0.3 K/mcL (0.0-1.3); Monocytes % 2.7 %; Neutrophils # 11.4 K/mcL (1.6-8.9); Platelet Count 137 K/mcL (140-400); Red Blood Count 4.88 M/mcL (4.19-5.50); Red Cell Distribution Width 15.4 % (11.5-14.5); Segmented Neutrophils % 93.3 %; White Blood Count 12.2 K/mcL (4.3-11.1)
[2021-10-29 01:56] LABS: Alanine Aminotransferase 26 Units/L (7-52); Albumin 2.4 g/dL (3.5-5.7); Albumin/Globulin Ratio 1.2 (1.1-2.2); Alkaline Phosphatase 95 Units/L (34-104); Aspartate Amino Transferase 30 Units/L (13-39); BUN/Creatinine Ratio 31 (6-26); Bilirubin,Total 0.5 mg/dL (0.3-1.0); Blood Urea Nitrogen 31 mg/dL (8-23); Calcium 7.9 mg/dL (8.6-10.3); Carbon Dioxide 28 mEq/L (23-29); Chloride 107 mEq/L (98-107); Glucose 218 mg/dL (70-105); Osmolality,Calculated 301 (280-300); Potassium 4.2 mEq/L (3.5-5.1); Sodium 139 mEq/L (136-145); Total Protein 4.4 g/dL (6.4-8.9); eGFR For African Americans > 60 (> 60); eGFR For Non-African Americans > 60 (> 60)
[2021-10-29] MEDS: Ipratropium 1 PUFF INHALER IH SCH ×7 (03:33→23:31)
[2021-10-29] MEDS: *HR* Enoxaparin 40 MG/0.4 ML SYRINGE SQ SCH (05:56)
[2021-10-29] MEDS: Furosemide 20 MG TABLET PO SCH ×2 (07:49→17:09)
[2021-10-29] MEDS: Aspirin Enteric Coated 81 MG Tablet PO SCH (07:49)
[2021-10-29] MEDS: lisinopriL 20 MG TABLET PO SCH (07:49)
[2021-10-29] MEDS: GuaiFENesin/Dextromethorphan TABLET PO SCH ×2 (07:49→20:25)
[2021-10-29] MEDS: Cholecalciferol (D-3) 1,000 UNIT (25MCG) TABLET PO SCH (07:49)
[2021-10-29] MEDS: Insulin LISPRO 300 UNITS/3 ML VIAL SUBQ SCH ×8 (07:50→20:24)
[2021-10-29] MEDS: Fluticasone Propionate Nasal 50 MCG/SPRAY BOTTLE NS SCH (08:06)
[2021-10-29] MEDS: Ascorbic Acid 500 MG TABLET PO SCH (08:06)
[2021-10-29] MEDS: Insulin DETEMIR 100 UNIT/ML X5UNITS SUBQ SCH ×2 (09:30→20:25)
[2021-10-29] MEDS: ELDERBERRY EXTRACT PO SCH (09:31)
[2021-10-30] MEDS: Ipratropium 1 PUFF INHALER IH SCH ×4 (03:41→15:43)
[2021-10-30 04:56] LABS: Basophils % 0.1 %; Eosinophils # 0.1 K/mcL (0.0-0.6); Eosinophils % 1.2 %; Hematocrit 47.9 % (37.5-50.1); Hemoglobin 16.1 g/dL (12.9-16.9); Immature Granulocytes % 0.5 % (0-4); Lymphocytes # 0.6 K/mcL (0.6-4.6); Lymphocytes % 5.9 %; Mean Corpuscular HGB Conc 33.6 g/dL (31.6-35.5); Mean Corpuscular Hemoglobin 30.7 pg (28.0-33.3); Mean Corpuscular Volume 91.4 fL (83.0-100.0); Mean Platelet Volume 10.2 fL (9.4-12.4); Monocytes # 0.4 K/mcL (0.0-1.3); Neutrophils # 8.9 K/mcL (1.6-8.9); Platelet Count 121 K/mcL (140-400); Red Blood Count 5.24 M/mcL (4.19-5.50); Red Cell Distribution Width 15.8 % (11.5-14.5); Segmented Neutrophils % 88.3 %; White Blood Count 10.1 K/mcL (4.3-11.1)
[2021-10-30 05:17] LABS: Alanine Aminotransferase 26 Units/L (7-52); Albumin 2.5 g/dL (3.5-5.7); Albumin/Globulin Ratio 1.1 (1.1-2.2); Alkaline Phosphatase 99 Units/L (34-104); Aspartate Amino Transferase 32 Units/L (13-39); BUN/Creatinine Ratio 33 (6-26); Bilirubin,Total 0.7 mg/dL (0.3-1.0); Blood Urea Nitrogen 31 mg/dL (8-23); Carbon Dioxide 31 mEq/L (23-29); Chloride 105 mEq/L (98-107); Globulin 2.3 g/dL (2.4-3.5); Glucose 198 mg/dL (70-105); Osmolality,Calculated 302 (280-300); Potassium 4.1 mEq/L (3.5-5.1); Sodium 140 mEq/L (136-145); Total Protein 4.8 g/dL (6.4-8.9); eGFR For African Americans > 60 (> 60); eGFR For Non-African Americans > 60 (> 60)
[2021-10-30] MEDS: *HR* Enoxaparin 40 MG/0.4 ML SYRINGE SQ SCH (05:46)
[2021-10-30] MEDS: Insulin LISPRO 300 UNITS/3 ML VIAL SUBQ SCH ×7 (07:40→20:23)
[2021-10-30] MEDS: Fluticasone Propionate Nasal 50 MCG/SPRAY BOTTLE NS SCH (09:13)
[2021-10-30] MEDS: GuaiFENesin/Dextromethorphan TABLET PO SCH ×2 (09:14→20:22)
[2021-10-30] MEDS: Furosemide 20 MG TABLET PO SCH ×2 (09:14→16:58)
[2021-10-30] MEDS: Aspirin Enteric Coated 81 MG Tablet PO SCH (09:14)
[2021-10-30] MEDS: Ascorbic Acid 500 MG TABLET PO SCH (09:14)
[2021-10-30] MEDS: lisinopriL 20 MG TABLET PO SCH (09:14)
[2021-10-30] MEDS: Cholecalciferol (D-3) 1,000 UNIT (25MCG) TABLET PO SCH (09:14)
[2021-10-30] MEDS: ELDERBERRY EXTRACT PO SCH (09:16)
[2021-10-30] MEDS: Insulin DETEMIR 100 UNIT/ML X5UNITS SUBQ SCH ×2 (09:19→20:22)
[2021-10-30] MEDS: Ipratropium/Albuterol Neb 3 ML IH SCH ×2 (19:39→23:54)
[2021-10-31 02:57] LABS: Basophils % 0.1 %; Immature Granulocytes % 0.3 % (0-4)
[2021-10-31 02:58] LABS: Eosinophils # 0.1 K/mcL (0.0-0.6); Eosinophils % 1.3 %; Hematocrit 49.9 % (37.5-50.1); Hemoglobin 16.5 g/dL (12.9-16.9); Immature Platelets 4.6 % (1.1-6.1); Lymphocytes # 0.6 K/mcL (0.6-4.6); Lymphocytes % 5.3 %; Mean Corpuscular HGB Conc 33.1 g/dL (31.6-35.5); Mean Corpuscular Hemoglobin 30.8 pg (28.0-33.3); Mean Corpuscular Volume 93.3 fL (83.0-100.0); Mean Platelet Volume 11.1 fL (9.4-12.4); Monocytes # 0.4 K/mcL (0.0-1.3); Monocytes % 3.4 %; Neutrophils # 9.2 K/mcL (1.6-8.9); Platelet Count 75 K/mcL (140-400); Red Blood Count 5.35 M/mcL (4.19-5.50); Red Cell Distribution Width 16.2 % (11.5-14.5); Segmented Neutrophils % 89.6 %; White Blood Count 10.3 K/mcL (4.3-11.1)
[2021-10-31 03:16] LABS: Alanine Aminotransferase 26 Units/L (7-52); Albumin 2.6 g/dL (3.5-5.7); Albumin/Globulin Ratio 1.1 (1.1-2.2); Alkaline Phosphatase 96 Units/L (34-104); Aspartate Amino Transferase 32 Units/L (13-39); BUN/Creatinine Ratio 29 (6-26); Bilirubin,Total 0.8 mg/dL (0.3-1.0); Blood Urea Nitrogen 30 mg/dL (8-23); Calcium 8.2 mg/dL (8.6-10.3); Carbon Dioxide 32 mEq/L (23-29); Chloride 104 mEq/L (98-107); Globulin 2.3 g/dL (2.4-3.5); Glucose 111 mg/dL (70-105); Osmolality,Calculated 297 (280-300); Potassium 4.4 mEq/L (3.5-5.1); Sodium 140 mEq/L (136-145); Total Protein 4.9 g/dL (6.4-8.9); eGFR For African Americans > 60 (> 60); eGFR For Non-African Americans > 60 (> 60)
[2021-10-31] MEDS: Ipratropium/Albuterol Neb 3 ML IH SCH ×6 (03:55→23:18)
[2021-10-31] MEDS: *HR* Enoxaparin 40 MG/0.4 ML SYRINGE SQ SCH (04:48)
[2021-10-31] MEDS: Insulin LISPRO 300 UNITS/3 ML VIAL SUBQ SCH ×7 (07:16→21:28)
[2021-10-31] MEDS ORDERED: Furosemide 40 MG/4 ML VIAL IVP ONE (09:21)
[2021-10-31] MEDS: Aspirin Enteric Coated 81 MG Tablet PO SCH (09:24)
[2021-10-31] MEDS: Furosemide 20 MG TABLET PO SCH ×2 (09:24→17:51)
[2021-10-31] MEDS: Insulin DETEMIR 100 UNIT/ML X5UNITS SUBQ SCH ×2 (09:25→21:32)
[2021-10-31] MEDS: Fluticasone Propionate Nasal 50 MCG/SPRAY BOTTLE NS SCH (09:25)
[2021-10-31] MEDS: Ascorbic Acid 500 MG TABLET PO SCH (09:26)
[2021-10-31] MEDS: lisinopriL 20 MG TABLET PO SCH (09:26)
[2021-10-31] MEDS: GuaiFENesin/Dextromethorphan TABLET PO SCH ×2 (09:26→21:29)
[2021-10-31] MEDS: Cholecalciferol (D-3) 1,000 UNIT (25MCG) TABLET PO SCH (09:26)
[2021-10-31] MEDS: ELDERBERRY EXTRACT PO SCH (09:26)
[2021-10-31 09:39] LABS: ABG Base Excess 4 mEq/L (-2 to 3); ABG HCO3 29 mEq/L (21-27); ABG Oxygen Saturation 52 % (95-98); ABG PCO2 42 mmHg (35-45); ABG PH 7.45 pH Units (7.32-7.45); ABG PO2 27 mmHg (85-104); ABG TCO2 30 mEq/L (20-26)
[2021-10-31] MEDS ORDERED: Isovue-370 500 ML BOTTLE IVP ONE (11:02)
[2021-10-31] MEDS ORDERED: Piperacillin/Tazobactam 3.375 GM VIAL ONE (12:13)
[2021-10-31] MEDS: MethylPREDNISolone 40 MG/ML VIAL IVP SCH ×2 (12:49→21:29)
[2021-10-31] MEDS: Piperacillin/Tazobactam 3.375 GM in 0.9 % Sodium Chloride Mini Bag 100 ML IVPB SCH ×2 (12:50→12:51)
[2021-10-31 12:53] LABS: Lactate Dehydrogenase 576 Units/L (140-271)
[2021-10-31] MEDS: Saline Nasal Spray 44 ML BOTTLE NS PRN ×2 (12:56→21:40)
[2021-10-31 13:02] LABS: Ferritin 519 ng/mL (20-250)
[2021-10-31 14:20] LABS: C-Reactive Protein < 5 mg/L (Less than 10)
[2021-10-31] MEDS ORDERED: MethylPREDNISolone 40 MG/ML VIAL IVP SCH (16:00)
[2021-11-01 02:54] LABS: Basophils % 0.1 %; Hematocrit 44.6 % (37.5-50.1); Hemoglobin 15.4 g/dL (12.9-16.9); Immature Granulocytes % 0.4 % (0-4); Lymphocytes # 0.4 K/mcL (0.6-4.6); Lymphocytes % 3.2 %; Mean Corpuscular HGB Conc 34.5 g/dL (31.6-35.5); Mean Corpuscular Hemoglobin 31.1 pg (28.0-33.3); Mean Corpuscular Volume 90.1 fL (83.0-100.0); Mean Platelet Volume 10.3 fL (9.4-12.4); Monocytes # 0.2 K/mcL (0.0-1.3); Monocytes % 1.6 %; Neutrophils # 12.3 K/mcL (1.6-8.9); Platelet Count 120 K/mcL (140-400); Red Blood Count 4.95 M/mcL (4.19-5.50); Red Cell Distribution Width 15.8 % (11.5-14.5); Segmented Neutrophils % 94.7 %
[2021-11-01 03:15] LABS: Alanine Aminotransferase 24 Units/L (7-52); Albumin 2.5 g/dL (3.5-5.7); Alkaline Phosphatase 94 Units/L (34-104); Aspartate Amino Transferase 34 Units/L (13-39); BUN/Creatinine Ratio 31 (6-26); Bilirubin,Total 0.8 mg/dL (0.3-1.0); Blood Urea Nitrogen 34 mg/dL (8-23); C-Reactive Protein < 5 mg/L (Less than 10); Calcium 7.7 mg/dL (8.6-10.3); Carbon Dioxide 29 mEq/L (23-29); Chloride 103 mEq/L (98-107); Globulin 2.4 g/dL (2.4-3.5); Glucose 178 mg/dL (70-105); Lactate Dehydrogenase 506 Units/L (140-271); Osmolality,Calculated 296 (280-300); Potassium 4.3 mEq/L (3.5-5.1); Sodium 137 mEq/L (136-145); Total Protein 4.9 g/dL (6.4-8.9); eGFR For African Americans > 60 (> 60); eGFR For Non-African Americans > 60 (> 60)
[2021-11-01 03:31] LABS: Ferritin 497 ng/mL (20-250)
[2021-11-01] MEDS: Piperacillin/Tazobactam 3.375 GM in 0.9 % Sodium Chloride Mini Bag 100 ML IVPB SCH ×3 (03:52→20:52)
[2021-11-01] MEDS: Ipratropium/Albuterol Neb 3 ML IH SCH ×6 (03:53→23:56)
[2021-11-01] MEDS: MethylPREDNISolone 40 MG/ML VIAL IVP SCH ×3 (05:17→20:52)
[2021-11-01] MEDS: *HR* Enoxaparin 40 MG/0.4 ML SYRINGE SQ SCH (05:18)
[2021-11-01] MEDS: Cholecalciferol (D-3) 1,000 UNIT (25MCG) TABLET PO SCH (07:44)
[2021-11-01] MEDS: Furosemide 20 MG/2 ML VIAL IVP SCH ×2 (07:44→20:53)
[2021-11-01] MEDS: lisinopriL 20 MG TABLET PO SCH (07:44)
[2021-11-01] MEDS: Ascorbic Acid 500 MG TABLET PO SCH (07:44)
[2021-11-01] MEDS: Insulin DETEMIR 100 UNIT/ML X5UNITS SUBQ SCH ×2 (07:45→20:54)
[2021-11-01] MEDS: GuaiFENesin/Dextromethorphan TABLET PO SCH ×2 (07:45→20:53)
[2021-11-01] MEDS: Aspirin Enteric Coated 81 MG Tablet PO SCH (07:45)
[2021-11-01] MEDS: Insulin LISPRO 300 UNITS/3 ML VIAL SUBQ SCH ×7 (07:46→20:54)
[2021-11-01] MEDS: ELDERBERRY EXTRACT PO SCH (07:47)
[2021-11-01] MEDS: Fluticasone Propionate Nasal 50 MCG/SPRAY BOTTLE NS SCH (07:47)
[2021-11-02 01:11] LABS: Basophils % 0.1 %; Hematocrit 45.8 % (37.5-50.1); Hemoglobin 15.8 g/dL (12.9-16.9); Immature Granulocytes % 0.5 % (0-4); Lymphocytes # 0.4 K/mcL (0.6-4.6); Lymphocytes % 2.8 %; Mean Corpuscular HGB Conc 34.5 g/dL (31.6-35.5); Mean Corpuscular Hemoglobin 30.9 pg (28.0-33.3); Mean Corpuscular Volume 89.5 fL (83.0-100.0); Mean Platelet Volume 10.1 fL (9.4-12.4); Monocytes # 0.4 K/mcL (0.0-1.3); Monocytes % 2.9 %; Platelet Count 127 K/mcL (140-400); Red Blood Count 5.12 M/mcL (4.19-5.50); Red Cell Distribution Width 15.9 % (11.5-14.5); Segmented Neutrophils % 93.7 %; White Blood Count 13.9 K/mcL (4.3-11.1)
[2021-11-02 01:33] LABS: Alanine Aminotransferase 26 Units/L (7-52); Albumin 2.6 g/dL (3.5-5.7); Albumin/Globulin Ratio 1.1 (1.1-2.2); Alkaline Phosphatase 81 Units/L (34-104); Aspartate Amino Transferase 32 Units/L (13-39); BUN/Creatinine Ratio 32 (6-26); Bilirubin,Total 0.8 mg/dL (0.3-1.0); Blood Urea Nitrogen 37 mg/dL (8-23); Calcium 7.8 mg/dL (8.6-10.3); Carbon Dioxide 27 mEq/L (23-29); Chloride 106 mEq/L (98-107); Globulin 2.4 g/dL (2.4-3.5); Glucose 97 mg/dL (70-105); Osmolality,Calculated 299 (280-300); Potassium 3.8 mEq/L (3.5-5.1); Sodium 140 mEq/L (136-145); eGFR For African Americans > 60 (> 60); eGFR For Non-African Americans > 60 (> 60)
[2021-11-02] MEDS: Ipratropium/Albuterol Neb 3 ML IH SCH ×5 (04:12→20:03)
[2021-11-02] MEDS: *HR* Enoxaparin 40 MG/0.4 ML SYRINGE SQ SCH (06:16)
[2021-11-02] MEDS: MethylPREDNISolone 40 MG/ML VIAL IVP SCH ×3 (06:17→20:05)
[2021-11-02] MEDS: Piperacillin/Tazobactam 3.375 GM in 0.9 % Sodium Chloride Mini Bag 100 ML IVPB SCH ×3 (06:17→20:02)
[2021-11-02] MEDS: Insulin LISPRO 300 UNITS/3 ML VIAL SUBQ SCH ×7 (07:41→20:03)
[2021-11-02] MEDS: Aspirin Enteric Coated 81 MG Tablet PO SCH (08:56)
[2021-11-02] MEDS: Cholecalciferol (D-3) 1,000 UNIT (25MCG) TABLET PO SCH (08:57)
[2021-11-02] MEDS: GuaiFENesin/Dextromethorphan TABLET PO SCH ×2 (08:57→20:05)
[2021-11-02] MEDS: Furosemide 20 MG/2 ML VIAL IVP SCH ×2 (08:57→20:05)
[2021-11-02] MEDS: lisinopriL 20 MG TABLET PO SCH (08:57)
[2021-11-02] MEDS: Ascorbic Acid 500 MG TABLET PO SCH (08:57)
[2021-11-02] MEDS: Insulin DETEMIR 100 UNIT/ML X5UNITS SUBQ SCH ×2 (08:59→20:03)
[2021-11-02] MEDS: ELDERBERRY EXTRACT PO SCH (09:12)
[2021-11-02] MEDS: Fluticasone Propionate Nasal 50 MCG/SPRAY BOTTLE NS SCH (09:13)
[2021-11-03] MEDS: Ipratropium/Albuterol Neb 3 ML IH SCH ×7 (00:05→23:24)
[2021-11-03] MEDS: MethylPREDNISolone 40 MG/ML VIAL IVP SCH ×3 (05:03→19:28)
[2021-11-03] MEDS: Piperacillin/Tazobactam 3.375 GM in 0.9 % Sodium Chloride Mini Bag 100 ML IVPB SCH ×3 (05:07→19:27)
[2021-11-03] MEDS: *HR* Enoxaparin 40 MG/0.4 ML SYRINGE SQ SCH (05:07)
[2021-11-03 05:36] LABS: Basophils % 0.2 %; Hematocrit 45.1 % (37.5-50.1); Hemoglobin 15.2 g/dL (12.9-16.9); Immature Granulocytes % 0.2 % (0-4); Lymphocytes # 0.4 K/mcL (0.6-4.6); Lymphocytes % 3.3 %; Mean Corpuscular HGB Conc 33.7 g/dL (31.6-35.5); Mean Corpuscular Hemoglobin 30.6 pg (28.0-33.3); Mean Corpuscular Volume 90.7 fL (83.0-100.0); Mean Platelet Volume 10.5 fL (9.4-12.4); Monocytes # 0.5 K/mcL (0.0-1.3); Monocytes % 4.1 %; Neutrophils # 11.8 K/mcL (1.6-8.9); Platelet Count 124 K/mcL (140-400); Red Blood Count 4.97 M/mcL (4.19-5.50); Red Cell Distribution Width 15.9 % (11.5-14.5); Segmented Neutrophils % 92.2 %; White Blood Count 12.8 K/mcL (4.3-11.1)
[2021-11-03 06:04] LABS: Alanine Aminotransferase 35 Units/L (7-52); Albumin 2.5 g/dL (3.5-5.7); Albumin/Globulin Ratio 1.1 (1.1-2.2); Alkaline Phosphatase 86 Units/L (34-104); Aspartate Amino Transferase 34 Units/L (13-39); BUN/Creatinine Ratio 39 (6-26); Bilirubin,Total 0.8 mg/dL (0.3-1.0); Blood Urea Nitrogen 39 mg/dL (8-23); Calcium 7.3 mg/dL (8.6-10.3); Carbon Dioxide 27 mEq/L (23-29); Chloride 101 mEq/L (98-107); Globulin 2.3 g/dL (2.4-3.5); Glucose 183 mg/dL (70-105); Osmolality,Calculated 296 (280-300); Potassium 3.7 mEq/L (3.5-5.1); Sodium 136 mEq/L (136-145); Total Protein 4.8 g/dL (6.4-8.9); eGFR For African Americans > 60 (> 60); eGFR For Non-African Americans > 60 (> 60)
[2021-11-03] MEDS: Insulin DETEMIR 100 UNIT/ML X5UNITS SUBQ SCH ×2 (08:06→21:04)
[2021-11-03] MEDS: Furosemide 20 MG/2 ML VIAL IVP SCH ×2 (08:07→19:27)
[2021-11-03] MEDS: Ascorbic Acid 500 MG TABLET PO SCH (08:07)
[2021-11-03] MEDS: lisinopriL 20 MG TABLET PO SCH (08:07)
[2021-11-03] MEDS: GuaiFENesin/Dextromethorphan TABLET PO SCH ×2 (08:07→19:27)
[2021-11-03] MEDS: Cholecalciferol (D-3) 1,000 UNIT (25MCG) TABLET PO SCH (08:07)
[2021-11-03] MEDS: Aspirin Enteric Coated 81 MG Tablet PO SCH (08:07)
[2021-11-03] MEDS: ELDERBERRY EXTRACT PO SCH (08:12)
[2021-11-03] MEDS: Insulin LISPRO 300 UNITS/3 ML VIAL SUBQ SCH ×7 (08:13→21:05)
[2021-11-03] MEDS: Fluticasone Propionate Nasal 50 MCG/SPRAY BOTTLE NS SCH (08:14)
[2021-11-03] MEDS: Acetaminophen 325 MG TABLET PO PRN (21:11)
[2021-11-04 02:39] LABS: Basophils % 0.1 %; Hematocrit 44.3 % (37.5-50.1); Hemoglobin 15.2 g/dL (12.9-16.9); Immature Granulocytes % 0.5 % (0-4); Lymphocytes # 0.3 K/mcL (0.6-4.6); Lymphocytes % 2.6 %; Mean Corpuscular HGB Conc 34.3 g/dL (31.6-35.5); Mean Corpuscular Hemoglobin 31.5 pg (28.0-33.3); Mean Corpuscular Volume 91.9 fL (83.0-100.0); Mean Platelet Volume 10.3 fL (9.4-12.4); Monocytes # 0.5 K/mcL (0.0-1.3); Monocytes % 4.1 %; Neutrophils # 10.9 K/mcL (1.6-8.9); Platelet Count 128 K/mcL (140-400); Red Blood Count 4.82 M/mcL (4.19-5.50); Red Cell Distribution Width 15.8 % (11.5-14.5); Segmented Neutrophils % 92.7 %; White Blood Count 11.8 K/mcL (4.3-11.1)
[2021-11-04 02:40] LABS: BUN/Creatinine Ratio 37 (6-26); Blood Urea Nitrogen 38 mg/dL (8-23); Calcium 7.2 mg/dL (8.6-10.3); Carbon Dioxide 26 mEq/L (23-29); Chloride 101 mEq/L (98-107); Glucose 237 mg/dL (70-105); Osmolality,Calculated 301 (280-300); Potassium 3.6 mEq/L (3.5-5.1); Sodium 137 mEq/L (136-145); eGFR For African Americans > 60 (> 60); eGFR For Non-African Americans > 60 (> 60)
[2021-11-04] MEDS: Piperacillin/Tazobactam 3.375 GM in 0.9 % Sodium Chloride Mini Bag 100 ML IVPB SCH ×4 (03:22→19:45)
[2021-11-04] MEDS: MethylPREDNISolone 40 MG/ML VIAL IVP SCH ×3 (03:22→19:46)
[2021-11-04] MEDS: Ipratropium/Albuterol Neb 3 ML IH SCH ×6 (03:57→23:45)
[2021-11-04] MEDS: *HR* Enoxaparin 40 MG/0.4 ML SYRINGE SQ SCH (05:53)
[2021-11-04] MEDS: lisinopriL 20 MG TABLET PO SCH (08:24)
[2021-11-04] MEDS: GuaiFENesin/Dextromethorphan TABLET PO SCH ×2 (08:25→19:46)
[2021-11-04] MEDS: Furosemide 20 MG/2 ML VIAL IVP SCH ×2 (08:25→19:45)
[2021-11-04] MEDS: Cholecalciferol (D-3) 1,000 UNIT (25MCG) TABLET PO SCH (08:25)
[2021-11-04] MEDS: Insulin LISPRO 300 UNITS/3 ML VIAL SUBQ SCH ×7 (08:25→19:43)
[2021-11-04] MEDS: Aspirin Enteric Coated 81 MG Tablet PO SCH (08:25)
[2021-11-04] MEDS: Ascorbic Acid 500 MG TABLET PO SCH (08:25)
[2021-11-04] MEDS: Insulin DETEMIR 100 UNIT/ML X5UNITS SUBQ SCH ×2 (08:26→19:44)
[2021-11-04] MEDS ORDERED: Morphine Sulfate Oral CONC 10 MG/0.5 ML ORAL.SYG SL PRN (09:08)
[2021-11-04] MEDS: ELDERBERRY EXTRACT PO SCH (10:58)
[2021-11-04] MEDS: Fluticasone Propionate Nasal 50 MCG/SPRAY BOTTLE NS SCH (10:59)
[2021-11-05] MEDS: Piperacillin/Tazobactam 3.375 GM in 0.9 % Sodium Chloride Mini Bag 100 ML IVPB SCH ×3 (03:57→21:04)
[2021-11-05] MEDS: MethylPREDNISolone 40 MG/ML VIAL IVP SCH ×3 (03:58→21:00)
[2021-11-05] MEDS: Ipratropium/Albuterol Neb 3 ML IH SCH ×6 (04:21→23:34)
[2021-11-05 04:39] LABS: Basophils % 0.1 %; Hematocrit 44.6 % (37.5-50.1); Hemoglobin 15.3 g/dL (12.9-16.9); Immature Granulocytes % 0.3 % (0-4); Lymphocytes # 0.4 K/mcL (0.6-4.6); Lymphocytes % 3.5 %; Mean Corpuscular HGB Conc 34.3 g/dL (31.6-35.5); Mean Corpuscular Hemoglobin 31.6 pg (28.0-33.3); Mean Corpuscular Volume 92.1 fL (83.0-100.0); Mean Platelet Volume 10.5 fL (9.4-12.4); Monocytes # 0.4 K/mcL (0.0-1.3); Neutrophils # 9.8 K/mcL (1.6-8.9); Platelet Count 123 K/mcL (140-400); Red Blood Count 4.84 M/mcL (4.19-5.50); Segmented Neutrophils % 92.1 %; White Blood Count 10.6 K/mcL (4.3-11.1)
[2021-11-05 04:49] LABS: Alanine Aminotransferase 35 Units/L (7-52); Albumin 2.4 g/dL (3.5-5.7); Albumin/Globulin Ratio 1.1 (1.1-2.2); Alkaline Phosphatase 82 Units/L (34-104); Aspartate Amino Transferase 35 Units/L (13-39); BUN/Creatinine Ratio 35 (6-26); Bilirubin,Total 0.7 mg/dL (0.3-1.0); Blood Urea Nitrogen 34 mg/dL (8-23); Calcium 7.1 mg/dL (8.6-10.3); Carbon Dioxide 31 mEq/L (23-29); Chloride 104 mEq/L (98-107); Globulin 2.2 g/dL (2.4-3.5); Glucose 133 mg/dL (70-105); Osmolality,Calculated 298 (280-300); Potassium 3.6 mEq/L (3.5-5.1); Sodium 139 mEq/L (136-145); Total Protein 4.6 g/dL (6.4-8.9); eGFR For African Americans > 60 (> 60); eGFR For Non-African Americans > 60 (> 60)
[2021-11-05] MEDS: *HR* Enoxaparin 40 MG/0.4 ML SYRINGE SQ SCH (06:16)
[2021-11-05] MEDS: Insulin LISPRO 300 UNITS/3 ML VIAL SUBQ SCH ×7 (08:04→21:19)
[2021-11-05] MEDS: GuaiFENesin/Dextromethorphan TABLET PO SCH ×2 (09:38→21:01)
[2021-11-05] MEDS: Ascorbic Acid 500 MG TABLET PO SCH (09:38)
[2021-11-05] MEDS: lisinopriL 20 MG TABLET PO SCH (09:38)
[2021-11-05] MEDS: Aspirin Enteric Coated 81 MG Tablet PO SCH (09:38)
[2021-11-05] MEDS: Cholecalciferol (D-3) 1,000 UNIT (25MCG) TABLET PO SCH (09:38)
[2021-11-05] MEDS: Furosemide 20 MG/2 ML VIAL IVP SCH ×2 (09:39→21:01)
[2021-11-05] MEDS: Fluticasone Propionate Nasal 50 MCG/SPRAY BOTTLE NS SCH ×2 (09:39→21:19)
[2021-11-05] MEDS: ELDERBERRY EXTRACT PO SCH (09:40)
[2021-11-05] MEDS: Insulin DETEMIR 100 UNIT/ML X5UNITS SUBQ SCH ×2 (09:58→21:19)
[2021-11-06] MEDS: Ipratropium/Albuterol Neb 3 ML IH SCH ×6 (03:45→23:34)
[2021-11-06] MEDS: Piperacillin/Tazobactam 3.375 GM in 0.9 % Sodium Chloride Mini Bag 100 ML IVPB SCH ×3 (05:21→20:45)
[2021-11-06] MEDS: MethylPREDNISolone 40 MG/ML VIAL IVP SCH ×3 (05:22→20:45)
[2021-11-06] MEDS: *HR* Enoxaparin 40 MG/0.4 ML SYRINGE SQ SCH (05:22)
[2021-11-06] MEDS ORDERED: Vancomycin 1,250 MG/262.5 ML IV.SOLN IVPB SCH (09:00)
[2021-11-06] MEDS: Insulin LISPRO 300 UNITS/3 ML VIAL SUBQ SCH ×7 (09:29→20:49)
[2021-11-06] MEDS: Insulin DETEMIR 100 UNIT/ML X5UNITS SUBQ SCH ×2 (09:30→20:47)
[2021-11-06] MEDS: ELDERBERRY EXTRACT PO SCH (09:31)
[2021-11-06] MEDS: Ascorbic Acid 500 MG TABLET PO SCH (09:32)
[2021-11-06] MEDS: Aspirin Enteric Coated 81 MG Tablet PO SCH (09:32)
[2021-11-06] MEDS: GuaiFENesin/Dextromethorphan TABLET PO SCH ×2 (09:32→20:47)
[2021-11-06] MEDS: Cholecalciferol (D-3) 1,000 UNIT (25MCG) TABLET PO SCH (09:32)
[2021-11-06] MEDS: lisinopriL 20 MG TABLET PO SCH (09:32)
[2021-11-06] MEDS: Fluticasone Propionate Nasal 50 MCG/SPRAY BOTTLE NS SCH ×2 (09:33→20:51)
[2021-11-06] MEDS: Furosemide 20 MG/2 ML VIAL IVP SCH ×2 (09:33→20:44)
[2021-11-06] MEDS: Saline Nasal Spray 44 ML BOTTLE NS PRN (09:34)
[2021-11-07] MEDS ORDERED: Vancomycin 1,250 MG/262.5 ML IV.SOLN IVPB SCH (02:00)
[2021-11-07 02:09] LABS: Basophils % 0.2 %; Hematocrit 47.1 % (37.5-50.1); Immature Granulocytes % 0.2 % (0-4); Lymphocytes # 0.2 K/mcL (0.6-4.6); Lymphocytes % 2.1 %; Mean Corpuscular Hemoglobin 31.1 pg (28.0-33.3); Mean Corpuscular Volume 91.5 fL (83.0-100.0); Mean Platelet Volume 10.5 fL (9.4-12.4); Monocytes # 0.4 K/mcL (0.0-1.3); Monocytes % 3.1 %; Neutrophils # 10.8 K/mcL (1.6-8.9); Platelet Count 124 K/mcL (140-400); Red Blood Count 5.15 M/mcL (4.19-5.50); Red Cell Distribution Width 15.9 % (11.5-14.5); Segmented Neutrophils % 94.4 %; White Blood Count 11.5 K/mcL (4.3-11.1)
[2021-11-07 02:27] LABS: BUN/Creatinine Ratio 33 (6-26); Blood Urea Nitrogen 33 mg/dL (8-23); Calcium 7.3 mg/dL (8.6-10.3); Carbon Dioxide 31 mEq/L (23-29); Chloride 101 mEq/L (98-107); Glucose 190 mg/dL (70-105); Osmolality,Calculated 298 (280-300); Potassium 3.5 mEq/L (3.5-5.1); Sodium 138 mEq/L (136-145); eGFR For African Americans > 60 (> 60); eGFR For Non-African Americans > 60 (> 60)
[2021-11-07] MEDS: Piperacillin/Tazobactam 3.375 GM in 0.9 % Sodium Chloride Mini Bag 100 ML IVPB SCH ×3 (03:35→20:42)
[2021-11-07] MEDS: MethylPREDNISolone 40 MG/ML VIAL IVP SCH ×3 (03:36→21:58)
[2021-11-07] MEDS: Ipratropium/Albuterol Neb 3 ML IH SCH ×6 (04:12→23:16)
[2021-11-07] MEDS: *HR* Enoxaparin 40 MG/0.4 ML SYRINGE SQ SCH (05:57)
[2021-11-07] MEDS: GuaiFENesin/Dextromethorphan TABLET PO SCH ×2 (08:27→20:42)
[2021-11-07] MEDS: Aspirin Enteric Coated 81 MG Tablet PO SCH (08:27)
[2021-11-07] MEDS: Cholecalciferol (D-3) 1,000 UNIT (25MCG) TABLET PO SCH (08:27)
[2021-11-07] MEDS: lisinopriL 20 MG TABLET PO SCH (08:28)
[2021-11-07] MEDS: Furosemide 20 MG/2 ML VIAL IVP SCH ×2 (08:28→21:58)
[2021-11-07] MEDS: Insulin LISPRO 300 UNITS/3 ML VIAL SUBQ SCH ×7 (08:28→20:56)
[2021-11-07] MEDS: Saline Nasal Spray 44 ML BOTTLE NS PRN (08:31)
[2021-11-07] MEDS: Fluticasone Propionate Nasal 50 MCG/SPRAY BOTTLE NS SCH ×2 (08:31→20:48)
[2021-11-07] MEDS: ELDERBERRY EXTRACT PO SCH (08:32)
[2021-11-07] MEDS: Ascorbic Acid 500 MG TABLET PO SCH (08:58)
[2021-11-07] MEDS: Insulin DETEMIR 100 UNIT/ML X5UNITS SUBQ SCH ×2 (08:58→21:01)
[2021-11-08] MEDS: Ipratropium/Albuterol Neb 3 ML IH SCH ×5 (04:07→20:10)
[2021-11-08] MEDS: Piperacillin/Tazobactam 3.375 GM in 0.9 % Sodium Chloride Mini Bag 100 ML IVPB SCH ×2 (04:46→12:28)
[2021-11-08] MEDS: MethylPREDNISolone 40 MG/ML VIAL IVP SCH ×3 (04:46→18:49)
[2021-11-08] MEDS: *HR* Enoxaparin 40 MG/0.4 ML SYRINGE SQ SCH (04:46)
[2021-11-08 05:13] LABS: Basophils % 0.2 %; Eosinophils % 0.1 %; Hematocrit 48.2 % (37.5-50.1); Hemoglobin 16.5 g/dL (12.9-16.9); Immature Granulocytes % 0.5 % (0-4); Lymphocytes # 0.4 K/mcL (0.6-4.6); Lymphocytes % 3.2 %; Mean Corpuscular HGB Conc 34.2 g/dL (31.6-35.5); Mean Corpuscular Hemoglobin 31.2 pg (28.0-33.3); Mean Corpuscular Volume 91.1 fL (83.0-100.0); Mean Platelet Volume 10.1 fL (9.4-12.4); Monocytes # 0.4 K/mcL (0.0-1.3); Neutrophils # 11.8 K/mcL (1.6-8.9); Platelet Count 131 K/mcL (140-400); Red Blood Count 5.29 M/mcL (4.19-5.50); Red Cell Distribution Width 16.6 % (11.5-14.5); White Blood Count 12.7 K/mcL (4.3-11.1)
[2021-11-08 05:32] LABS: BUN/Creatinine Ratio 34 (6-26); Blood Urea Nitrogen 30 mg/dL (8-23); Calcium 7.6 mg/dL (8.6-10.3); Carbon Dioxide 34 mEq/L (23-29); Chloride 103 mEq/L (98-107); Glucose 102 mg/dL (70-105); Osmolality,Calculated 300 (280-300); Potassium 3.5 mEq/L (3.5-5.1); Sodium 142 mEq/L (136-145); eGFR For African Americans > 60 (> 60); eGFR For Non-African Americans > 60 (> 60)
[2021-11-08] MEDS: Insulin DETEMIR 100 UNIT/ML X5UNITS SUBQ SCH ×2 (08:30→20:46)
[2021-11-08] MEDS: GuaiFENesin/Dextromethorphan TABLET PO SCH ×2 (12:24→20:46)
[2021-11-08] MEDS: Furosemide 20 MG/2 ML VIAL IVP SCH ×2 (12:24→21:50)
[2021-11-08] MEDS: Ascorbic Acid 500 MG TABLET PO SCH (12:25)
[2021-11-08] MEDS: Cholecalciferol (D-3) 1,000 UNIT (25MCG) TABLET PO SCH (12:25)
[2021-11-08] MEDS: Aspirin Enteric Coated 81 MG Tablet PO SCH (12:25)
[2021-11-08] MEDS: lisinopriL 20 MG TABLET PO SCH (12:26)
[2021-11-08] MEDS: Saline Nasal Spray 44 ML BOTTLE NS PRN (12:27)
[2021-11-08] MEDS: Insulin LISPRO 300 UNITS/3 ML VIAL SUBQ SCH ×7 (12:34→21:48)
[2021-11-08] MEDS: Fluticasone Propionate Nasal 50 MCG/SPRAY BOTTLE NS SCH ×2 (12:53→20:49)
[2021-11-08] MEDS: ELDERBERRY EXTRACT PO SCH (19:00)
[2021-11-09] MEDS: Ipratropium/Albuterol Neb 3 ML IH SCH ×7 (00:26→23:46)
[2021-11-09] MEDS: MethylPREDNISolone 40 MG/ML VIAL IVP SCH ×2 (05:38→18:12)
[2021-11-09] MEDS: *HR* Enoxaparin 40 MG/0.4 ML SYRINGE SQ SCH (05:39)
[2021-11-09 06:07] LABS: Basophils % 0.2 %; Eosinophils % 0.2 %; Hematocrit 47.9 % (37.5-50.1); Hemoglobin 16.3 g/dL (12.9-16.9); Immature Granulocytes % 0.5 % (0-4); Lymphocytes # 0.5 K/mcL (0.6-4.6); Lymphocytes % 4.2 %; Mean Corpuscular Volume 91.1 fL (83.0-100.0); Mean Platelet Volume 9.9 fL (9.4-12.4); Monocytes # 0.6 K/mcL (0.0-1.3); Monocytes % 4.5 %; Neutrophils # 11.6 K/mcL (1.6-8.9); Platelet Count 138 K/mcL (140-400); Red Blood Count 5.26 M/mcL (4.19-5.50); Red Cell Distribution Width 16.7 % (11.5-14.5); Segmented Neutrophils % 90.4 %; White Blood Count 12.9 K/mcL (4.3-11.1)
[2021-11-09 06:15] LABS: BUN/Creatinine Ratio 45 (6-26); Blood Urea Nitrogen 33 mg/dL (8-23); Calcium 7.6 mg/dL (8.6-10.3); Carbon Dioxide 35 mEq/L (23-29); Chloride 102 mEq/L (98-107); Glucose 93 mg/dL (70-105); Osmolality,Calculated 297 (280-300); Potassium 3.5 mEq/L (3.5-5.1); Sodium 140 mEq/L (136-145); eGFR For African Americans > 60 (> 60); eGFR For Non-African Americans > 60 (> 60)
[2021-11-09] MEDS: GuaiFENesin/Dextromethorphan TABLET PO SCH ×2 (08:04→20:17)
[2021-11-09] MEDS: Ascorbic Acid 500 MG TABLET PO SCH (08:04)
[2021-11-09] MEDS: Cholecalciferol (D-3) 1,000 UNIT (25MCG) TABLET PO SCH (08:04)
[2021-11-09] MEDS: lisinopriL 20 MG TABLET PO SCH (08:04)
[2021-11-09] MEDS: Aspirin Enteric Coated 81 MG Tablet PO SCH (08:05)
[2021-11-09] MEDS: Fluticasone Propionate Nasal 50 MCG/SPRAY BOTTLE NS SCH ×2 (08:05→20:16)
[2021-11-09] MEDS: ELDERBERRY EXTRACT PO SCH (08:06)
[2021-11-09] MEDS: Furosemide 20 MG/2 ML VIAL IVP SCH ×2 (08:06→20:17)
[2021-11-09] MEDS: Insulin DETEMIR 100 UNIT/ML X5UNITS SUBQ SCH ×2 (08:19→20:17)
[2021-11-09] MEDS: Insulin LISPRO 300 UNITS/3 ML VIAL SUBQ SCH ×7 (08:19→19:52)
[2021-11-09] MEDS: Saline Nasal Spray 44 ML BOTTLE NS PRN (20:16)
[2021-11-10] MEDS: Ipratropium/Albuterol Neb 3 ML IH SCH ×6 (03:57→23:30)
[2021-11-10 06:03] LABS: Basophils % 0.2 %; Eosinophils % 0.2 %; Hematocrit 48.2 % (37.5-50.1); Immature Granulocytes % 0.5 % (0-4); Lymphocytes # 0.6 K/mcL (0.6-4.6); Lymphocytes % 5.8 %; Mean Corpuscular HGB Conc 33.2 g/dL (31.6-35.5); Mean Corpuscular Hemoglobin 30.1 pg (28.0-33.3); Mean Corpuscular Volume 90.8 fL (83.0-100.0); Mean Platelet Volume 10.2 fL (9.4-12.4); Monocytes # 0.4 K/mcL (0.0-1.3); Monocytes % 3.9 %; Neutrophils # 9.9 K/mcL (1.6-8.9); Platelet Count 152 K/mcL (140-400); Red Blood Count 5.31 M/mcL (4.19-5.50); Red Cell Distribution Width 16.9 % (11.5-14.5); Segmented Neutrophils % 89.4 %
[2021-11-10] MEDS: *HR* Enoxaparin 40 MG/0.4 ML SYRINGE SQ SCH (06:06)
[2021-11-10] MEDS: MethylPREDNISolone 40 MG/ML VIAL IVP SCH ×2 (06:06→17:24)
[2021-11-10 06:14] LABS: Alanine Aminotransferase 39 Units/L (7-52); Albumin 2.5 g/dL (3.5-5.7); Alkaline Phosphatase 95 Units/L (34-104); Aspartate Amino Transferase 41 Units/L (13-39); BUN/Creatinine Ratio 49 (6-26); Bilirubin,Total 0.8 mg/dL (0.3-1.0); Blood Urea Nitrogen 34 mg/dL (8-23); Calcium 7.6 mg/dL (8.6-10.3); Carbon Dioxide 33 mEq/L (23-29); Chloride 100 mEq/L (98-107); Globulin 2.4 g/dL (2.4-3.5); Glucose 155 mg/dL (70-105); Osmolality,Calculated 297 (280-300); Potassium 3.9 mEq/L (3.5-5.1); Sodium 138 mEq/L (136-145); Total Protein 4.9 g/dL (6.4-8.9); eGFR For African Americans > 60 (> 60); eGFR For Non-African Americans > 60 (> 60)
[2021-11-10] MEDS: Saline Nasal Spray 44 ML BOTTLE NS PRN (06:15)
[2021-11-10] MEDS: Insulin LISPRO 300 UNITS/3 ML VIAL SUBQ SCH ×7 (08:09→20:32)
[2021-11-10] MEDS: Aspirin Enteric Coated 81 MG Tablet PO SCH (08:26)
[2021-11-10] MEDS: Cholecalciferol (D-3) 1,000 UNIT (25MCG) TABLET PO SCH (08:26)
[2021-11-10] MEDS: Ascorbic Acid 500 MG TABLET PO SCH (08:26)
[2021-11-10] MEDS: Furosemide 20 MG/2 ML VIAL IVP SCH ×2 (08:26→20:31)
[2021-11-10] MEDS: lisinopriL 20 MG TABLET PO SCH (08:26)
[2021-11-10] MEDS: GuaiFENesin/Dextromethorphan TABLET PO SCH ×2 (08:26→20:30)
[2021-11-10] MEDS: Fluticasone Propionate Nasal 50 MCG/SPRAY BOTTLE NS SCH ×2 (08:27→20:31)
[2021-11-10] MEDS: Insulin DETEMIR 100 UNIT/ML X5UNITS SUBQ SCH ×2 (08:29→20:31)
[2021-11-10] MEDS: ELDERBERRY EXTRACT PO SCH (08:35)
[2021-11-10] MEDS: Acetaminophen 325 MG TABLET PO PRN (20:30)
[2021-11-11] MEDS: Ipratropium/Albuterol Neb 3 ML IH SCH ×6 (04:14→23:45)
[2021-11-11] MEDS: *HR* Enoxaparin 40 MG/0.4 ML SYRINGE SQ SCH (04:53)
[2021-11-11 05:27] LABS: Basophils % 0.2 %; Eosinophils % 0.1 %; Hematocrit 49.2 % (37.5-50.1); Hemoglobin 16.5 g/dL (12.9-16.9); Immature Granulocytes % 0.7 % (0-4); Lymphocytes # 0.8 K/mcL (0.6-4.6); Lymphocytes % 6.1 %; Mean Corpuscular HGB Conc 33.5 g/dL (31.6-35.5); Mean Corpuscular Hemoglobin 30.7 pg (28.0-33.3); Mean Corpuscular Volume 91.4 fL (83.0-100.0); Mean Platelet Volume 10.2 fL (9.4-12.4); Monocytes # 0.5 K/mcL (0.0-1.3); Monocytes % 4.2 %; Neutrophils # 10.9 K/mcL (1.6-8.9); Platelet Count 170 K/mcL (140-400); Red Blood Count 5.38 M/mcL (4.19-5.50); Red Cell Distribution Width 16.8 % (11.5-14.5); Segmented Neutrophils % 88.7 %; White Blood Count 12.2 K/mcL (4.3-11.1)
[2021-11-11 05:44] LABS: Alanine Aminotransferase 39 Units/L (7-52); Albumin 2.6 g/dL (3.5-5.7); Albumin/Globulin Ratio 1.1 (1.1-2.2); Alkaline Phosphatase 95 Units/L (34-104); Aspartate Amino Transferase 32 Units/L (13-39); BUN/Creatinine Ratio 41 (6-26); Bilirubin,Total 0.8 mg/dL (0.3-1.0); Blood Urea Nitrogen 32 mg/dL (8-23); Calcium 7.7 mg/dL (8.6-10.3); Carbon Dioxide 37 mEq/L (23-29); Chloride 101 mEq/L (98-107); Globulin 2.4 g/dL (2.4-3.5); Glucose 99 mg/dL (70-105); Osmolality,Calculated 299 (280-300); Potassium 3.6 mEq/L (3.5-5.1); Sodium 141 mEq/L (136-145); eGFR For African Americans > 60 (> 60); eGFR For Non-African Americans > 60 (> 60)
[2021-11-11] MEDS: Insulin LISPRO 300 UNITS/3 ML VIAL SUBQ SCH ×7 (08:04→23:39)
[2021-11-11] MEDS: Aspirin Enteric Coated 81 MG Tablet PO SCH (08:05)
[2021-11-11] MEDS: MethylPREDNISolone 40 MG/ML VIAL IVP SCH (08:05)
[2021-11-11] MEDS: lisinopriL 20 MG TABLET PO SCH (08:05)
[2021-11-11] MEDS: Cholecalciferol (D-3) 1,000 UNIT (25MCG) TABLET PO SCH (08:05)
[2021-11-11] MEDS: GuaiFENesin/Dextromethorphan TABLET PO SCH ×2 (08:05→20:58)
[2021-11-11] MEDS: Ascorbic Acid 500 MG TABLET PO SCH (08:05)
[2021-11-11] MEDS: Fluticasone Propionate Nasal 50 MCG/SPRAY BOTTLE NS SCH ×2 (08:06→23:38)
[2021-11-11] MEDS: Furosemide 20 MG/2 ML VIAL IVP SCH ×2 (08:06→20:58)
[2021-11-11] MEDS: ELDERBERRY EXTRACT PO SCH (08:07)
[2021-11-11] MEDS: Insulin DETEMIR 100 UNIT/ML X5UNITS SUBQ SCH ×2 (08:24→20:59)
[2021-11-11] MEDS: *HR* LORazepam Oral Conc 2 MG/ML SL PRN (11:35)
[2021-11-12] MEDS: Ipratropium/Albuterol Neb 3 ML IH SCH ×6 (03:55→23:42)
[2021-11-12] MEDS: *HR* Enoxaparin 40 MG/0.4 ML SYRINGE SQ SCH (05:50)
[2021-11-12 06:55] LABS: Alanine Aminotransferase 43 Units/L (7-52); Albumin 2.7 g/dL (3.5-5.7); Albumin/Globulin Ratio 1.1 (1.1-2.2); Alkaline Phosphatase 98 Units/L (34-104); Aspartate Amino Transferase 43 Units/L (13-39); BUN/Creatinine Ratio 46 (6-26); Bilirubin,Total 1.1 mg/dL (0.3-1.0); Blood Urea Nitrogen 32 mg/dL (8-23); Calcium 7.9 mg/dL (8.6-10.3); Carbon Dioxide 34 mEq/L (23-29); Chloride 99 mEq/L (98-107); Globulin 2.5 g/dL (2.4-3.5); Glucose 63 mg/dL (70-105); Osmolality,Calculated 291 (280-300); Potassium 3.2 mEq/L (3.5-5.1); Sodium 138 mEq/L (136-145); Total Protein 5.2 g/dL (6.4-8.9); eGFR For African Americans > 60 (> 60); eGFR For Non-African Americans > 60 (> 60)
[2021-11-12] MEDS: *HR* Dextrose 50 % in Water (Syg) 50 ML SYRINGE IVP PRN (06:57)
[2021-11-12 06:59] LABS: Basophils % 0.2 %; Eosinophils # 0.4 K/mcL (0.0-0.6); Hematocrit 49.4 % (37.5-50.1); Hemoglobin 17.1 g/dL (12.9-16.9); Immature Granulocytes % 0.8 % (0-4); Lymphocytes # 1.2 K/mcL (0.6-4.6); Mean Corpuscular HGB Conc 34.6 g/dL (31.6-35.5); Mean Corpuscular Hemoglobin 31.4 pg (28.0-33.3); Mean Corpuscular Volume 90.8 fL (83.0-100.0); Mean Platelet Volume 10.2 fL (9.4-12.4); Monocytes # 0.5 K/mcL (0.0-1.3); Monocytes % 3.8 %; Neutrophils # 9.7 K/mcL (1.6-8.9); Platelet Count 183 K/mcL (140-400); Red Blood Count 5.44 M/mcL (4.19-5.50); Red Cell Distribution Width 17.4 % (11.5-14.5); Segmented Neutrophils % 82.2 %; White Blood Count 11.8 K/mcL (4.3-11.1)
[2021-11-12] MEDS: Cholecalciferol (D-3) 1,000 UNIT (25MCG) TABLET PO SCH (08:02)
[2021-11-12] MEDS: Aspirin Enteric Coated 81 MG Tablet PO SCH (08:02)
[2021-11-12] MEDS: lisinopriL 20 MG TABLET PO SCH (08:03)
[2021-11-12] MEDS: MethylPREDNISolone 40 MG/ML VIAL IVP SCH (08:03)
[2021-11-12] MEDS: Fluticasone Propionate Nasal 50 MCG/SPRAY BOTTLE NS SCH (08:04)
[2021-11-12] MEDS: Furosemide 20 MG/2 ML VIAL IVP SCH ×2 (08:04→20:23)
[2021-11-12] MEDS: Insulin LISPRO 300 UNITS/3 ML VIAL SUBQ SCH ×6 (08:04→16:22)
[2021-11-12] MEDS: GuaiFENesin/Dextromethorphan TABLET PO SCH ×2 (08:05→20:23)
[2021-11-12] MEDS: ELDERBERRY EXTRACT PO SCH (08:06)
[2021-11-12] MEDS: Ascorbic Acid 500 MG TABLET PO SCH (08:09)
[2021-11-12] MEDS: Insulin DETEMIR 100 UNIT/ML X5UNITS SUBQ SCH (08:27)
[2021-11-13] MEDS: Ipratropium/Albuterol Neb 3 ML IH SCH ×6 (03:49→23:34)
[2021-11-13] MEDS: Fluticasone Propionate Nasal 50 MCG/SPRAY BOTTLE NS SCH ×3 (06:10→21:14)
[2021-11-13] MEDS: Insulin LISPRO 300 UNITS/3 ML VIAL SUBQ SCH ×8 (06:10→21:15)
[2021-11-13] MEDS: Insulin DETEMIR 100 UNIT/ML X5UNITS SUBQ SCH ×3 (06:10→21:19)
[2021-11-13] MEDS: *HR* Enoxaparin 40 MG/0.4 ML SYRINGE SQ SCH (06:11)
[2021-11-13 06:42] LABS: Basophils % 0.2 %; Eosinophils % 0.2 %; Hematocrit 48.8 % (37.5-50.1); Hemoglobin 16.5 g/dL (12.9-16.9); Immature Granulocytes % 0.5 % (0-4); Lymphocytes # 0.7 K/mcL (0.6-4.6); Lymphocytes % 5.4 %; Mean Corpuscular HGB Conc 33.8 g/dL (31.6-35.5); Mean Corpuscular Hemoglobin 30.8 pg (28.0-33.3); Mean Corpuscular Volume 91.2 fL (83.0-100.0); Mean Platelet Volume 10.2 fL (9.4-12.4); Monocytes # 0.3 K/mcL (0.0-1.3); Monocytes % 2.6 %; Platelet Count 165 K/mcL (140-400); Red Blood Count 5.35 M/mcL (4.19-5.50); Red Cell Distribution Width 17.2 % (11.5-14.5); Segmented Neutrophils % 91.1 %; White Blood Count 13.2 K/mcL (4.3-11.1)
[2021-11-13] MEDS: MethylPREDNISolone 40 MG/ML VIAL IVP SCH (08:13)
[2021-11-13] MEDS: Aspirin Enteric Coated 81 MG Tablet PO SCH (08:13)
[2021-11-13] MEDS: Cholecalciferol (D-3) 1,000 UNIT (25MCG) TABLET PO SCH (08:13)
[2021-11-13] MEDS: Furosemide 20 MG/2 ML VIAL IVP SCH ×2 (08:14→21:13)
[2021-11-13] MEDS: ELDERBERRY EXTRACT PO SCH (08:15)
[2021-11-13] MEDS: GuaiFENesin/Dextromethorphan TABLET PO SCH ×2 (08:19→21:13)
[2021-11-13] MEDS: Ascorbic Acid 500 MG TABLET PO SCH (08:19)
[2021-11-13] MEDS: lisinopriL 20 MG TABLET PO SCH (09:07)
[2021-11-13 11:23] LABS: Alanine Aminotransferase 43 Units/L (7-52); Albumin 2.5 g/dL (3.5-5.7); Alkaline Phosphatase 93 Units/L (34-104); Aspartate Amino Transferase 43 Units/L (13-39); BUN/Creatinine Ratio 36 (6-26); Bilirubin,Total 0.8 mg/dL (0.3-1.0); Blood Urea Nitrogen 30 mg/dL (8-23); Calcium 7.9 mg/dL (8.6-10.3); Carbon Dioxide 33 mEq/L (23-29); Chloride 98 mEq/L (98-107); Globulin 2.5 g/dL (2.4-3.5); Glucose 253 mg/dL (70-105); Osmolality,Calculated 299 (280-300); Potassium 3.8 mEq/L (3.5-5.1); Sodium 137 mEq/L (136-145); eGFR For African Americans > 60 (> 60); eGFR For Non-African Americans > 60 (> 60)
[2021-11-14 01:37] LABS: Hematocrit 47.3 % (37.5-50.1); Hemoglobin 16.3 g/dL (12.9-16.9); Mean Corpuscular HGB Conc 34.5 g/dL (31.6-35.5); Nucleated Red Blood Cells 0.2 /100 WBC (0)
[2021-11-14 01:39] LABS: Basophils % 0.1 %; Eosinophils # 0.1 K/mcL (0.0-0.6); Eosinophils % 0.8 %; Immature Granulocytes % 0.7 % (0-4); Immature Platelets 3.8 % (1.1-6.1); Mean Corpuscular Hemoglobin 30.8 pg (28.0-33.3); Mean Corpuscular Volume 89.4 fL (83.0-100.0); Mean Platelet Volume 10.2 fL (9.4-12.4); Monocytes # 0.4 K/mcL (0.0-1.3); Neutrophils # 12.6 K/mcL (1.6-8.9); Platelet Count 121 K/mcL (140-400); Red Blood Count 5.29 M/mcL (4.19-5.50); Segmented Neutrophils % 88.4 %; White Blood Count 14.2 K/mcL (4.3-11.1)
[2021-11-14 01:54] LABS: Alanine Aminotransferase 42 Units/L (7-52); Albumin 2.5 g/dL (3.5-5.7); Alkaline Phosphatase 99 Units/L (34-104); Aspartate Amino Transferase 48 Units/L (13-39); BUN/Creatinine Ratio 40 (6-26); Bilirubin,Total 0.7 mg/dL (0.3-1.0); Blood Urea Nitrogen 32 mg/dL (8-23); Calcium 7.8 mg/dL (8.6-10.3); Carbon Dioxide 32 mEq/L (23-29); Chloride 99 mEq/L (98-107); Globulin 2.6 g/dL (2.4-3.5); Glucose 149 mg/dL (70-105); Osmolality,Calculated 294 (280-300); Potassium 3.9 mEq/L (3.5-5.1); Sodium 137 mEq/L (136-145); Total Protein 5.1 g/dL (6.4-8.9); eGFR For African Americans > 60 (> 60); eGFR For Non-African Americans > 60 (> 60)
[2021-11-14] MEDS: Ipratropium/Albuterol Neb 3 ML IH SCH ×6 (03:43→23:43)
[2021-11-14] MEDS: *HR* Enoxaparin 40 MG/0.4 ML SYRINGE SQ SCH (04:44)
[2021-11-14] MEDS: MethylPREDNISolone 40 MG/ML VIAL IVP SCH (08:12)
[2021-11-14] MEDS: GuaiFENesin/Dextromethorphan TABLET PO SCH ×2 (08:12→21:00)
[2021-11-14] MEDS: lisinopriL 20 MG TABLET PO SCH (08:12)
[2021-11-14] MEDS: Ascorbic Acid 500 MG TABLET PO SCH (08:12)
[2021-11-14] MEDS: Aspirin Enteric Coated 81 MG Tablet PO SCH (08:12)
[2021-11-14] MEDS: Cholecalciferol (D-3) 1,000 UNIT (25MCG) TABLET PO SCH (08:12)
[2021-11-14] MEDS: Furosemide 20 MG/2 ML VIAL IVP SCH ×2 (08:13→21:00)
[2021-11-14] MEDS: Insulin LISPRO 300 UNITS/3 ML VIAL SUBQ SCH ×7 (08:14→21:01)
[2021-11-14] MEDS: ELDERBERRY EXTRACT PO SCH (08:16)
[2021-11-14] MEDS: Fluticasone Propionate Nasal 50 MCG/SPRAY BOTTLE NS SCH ×2 (08:16→21:02)
[2021-11-14] MEDS: Insulin DETEMIR 100 UNIT/ML X5UNITS SUBQ SCH ×2 (08:20→21:00)
[2021-11-14] MEDS: *HR* LORazepam Oral Conc 2 MG/ML SL PRN (08:37)
[2021-11-14] MEDS: *HR* Dextrose 50 % in Water (Syg) 50 ML SYRINGE IVP PRN (12:02)
[2021-11-14] MEDS: *HR* LORazepam 0.5 MG TABLET PO SCH ×2 (16:15→21:00)
[2021-11-15 03:57] LABS: Basophils % 0.2 %; Eosinophils # 0.3 K/mcL (0.0-0.6); Eosinophils % 2.1 %; Hematocrit 46.2 % (37.5-50.1); Hemoglobin 15.4 g/dL (12.9-16.9); Immature Granulocytes % 0.5 % (0-4); Lymphocytes % 8.3 %; Mean Corpuscular HGB Conc 33.3 g/dL (31.6-35.5); Mean Corpuscular Hemoglobin 30.6 pg (28.0-33.3); Mean Corpuscular Volume 91.7 fL (83.0-100.0); Mean Platelet Volume 10.1 fL (9.4-12.4); Monocytes # 0.5 K/mcL (0.0-1.3); Monocytes % 3.8 %; Neutrophils # 10.3 K/mcL (1.6-8.9); Platelet Count 174 K/mcL (140-400); Red Blood Count 5.04 M/mcL (4.19-5.50); Red Cell Distribution Width 17.1 % (11.5-14.5); Segmented Neutrophils % 85.1 %; White Blood Count 12.1 K/mcL (4.3-11.1)
[2021-11-15 04:16] LABS: Alanine Aminotransferase 44 Units/L (7-52); Albumin 2.3 g/dL (3.5-5.7); Albumin/Globulin Ratio 0.9 (1.1-2.2); Alkaline Phosphatase 80 Units/L (34-104); Aspartate Amino Transferase 43 Units/L (13-39); BUN/Creatinine Ratio 38 (6-26); Bilirubin,Total 0.7 mg/dL (0.3-1.0); Blood Urea Nitrogen 39 mg/dL (8-23); Carbon Dioxide 34 mEq/L (23-29); Chloride 99 mEq/L (98-107); Globulin 2.5 g/dL (2.4-3.5); Glucose 203 mg/dL (70-105); Osmolality,Calculated 301 (280-300); Potassium 3.7 mEq/L (3.5-5.1); Sodium 138 mEq/L (136-145); Total Protein 4.8 g/dL (6.4-8.9); eGFR For African Americans > 60 (> 60); eGFR For Non-African Americans > 60 (> 60)
[2021-11-15] MEDS: Ipratropium/Albuterol Neb 3 ML IH SCH ×6 (04:18→23:55)
[2021-11-15] MEDS: *HR* Enoxaparin 40 MG/0.4 ML SYRINGE SQ SCH (05:20)
[2021-11-15] MEDS: Insulin LISPRO 300 UNITS/3 ML VIAL SUBQ SCH ×8 (07:30→22:08)
[2021-11-15] MEDS: *HR* LORazepam 0.5 MG TABLET PO SCH ×2 (09:00→21:57)
[2021-11-15] MEDS: Fluticasone Propionate Nasal 50 MCG/SPRAY BOTTLE NS SCH ×2 (12:07→21:59)
[2021-11-15] MEDS: MethylPREDNISolone 40 MG/ML VIAL IVP SCH (12:08)
[2021-11-15] MEDS: lisinopriL 20 MG TABLET PO SCH (12:08)
[2021-11-15] MEDS: Furosemide 20 MG/2 ML VIAL IVP SCH ×2 (12:09→21:59)
[2021-11-15] MEDS: Aspirin Enteric Coated 81 MG Tablet PO SCH (12:09)
[2021-11-15] MEDS: ELDERBERRY EXTRACT PO SCH (12:09)
[2021-11-15] MEDS: Ascorbic Acid 500 MG TABLET PO SCH (12:09)
[2021-11-15] MEDS: GuaiFENesin/Dextromethorphan TABLET PO SCH ×2 (12:09→21:59)
[2021-11-15] MEDS: Cholecalciferol (D-3) 1,000 UNIT (25MCG) TABLET PO SCH (12:10)
[2021-11-15] MEDS: Insulin DETEMIR 100 UNIT/ML X5UNITS SUBQ SCH ×2 (12:11→21:59)
[2021-11-16] MEDS: Ipratropium/Albuterol Neb 3 ML IH SCH ×6 (05:09→23:42)
[2021-11-16] MEDS: *HR* Enoxaparin 40 MG/0.4 ML SYRINGE SQ SCH (05:23)
[2021-11-16 05:41] LABS: Basophils % 0.2 %; Eosinophils # 0.1 K/mcL (0.0-0.6); Eosinophils % 1.1 %; Hemoglobin 15.7 g/dL (12.9-16.9); Immature Granulocytes % 0.5 % (0-4); Lymphocytes # 1.3 K/mcL (0.6-4.6); Lymphocytes % 11.1 %; Mean Corpuscular HGB Conc 34.1 g/dL (31.6-35.5); Mean Corpuscular Hemoglobin 31.5 pg (28.0-33.3); Mean Corpuscular Volume 92.2 fL (83.0-100.0); Mean Platelet Volume 10.1 fL (9.4-12.4); Monocytes # 0.4 K/mcL (0.0-1.3); Monocytes % 3.5 %; Neutrophils # 9.8 K/mcL (1.6-8.9); Platelet Count 173 K/mcL (140-400); Red Blood Count 4.99 M/mcL (4.19-5.50); Segmented Neutrophils % 83.6 %; White Blood Count 11.7 K/mcL (4.3-11.1)
[2021-11-16 06:18] LABS: Alanine Aminotransferase 49 Units/L (7-52); Albumin 2.5 g/dL (3.5-5.7); Alkaline Phosphatase 92 Units/L (34-104); Aspartate Amino Transferase 39 Units/L (13-39); BUN/Creatinine Ratio 45 (6-26); Bilirubin,Total 0.9 mg/dL (0.3-1.0); Blood Urea Nitrogen 35 mg/dL (8-23); Calcium 7.9 mg/dL (8.6-10.3); Carbon Dioxide 36 mEq/L (23-29); Chloride 99 mEq/L (98-107); Globulin 2.6 g/dL (2.4-3.5); Glucose 201 mg/dL (70-105); Osmolality,Calculated 302 (280-300); Potassium 3.7 mEq/L (3.5-5.1); Sodium 139 mEq/L (136-145); Total Protein 5.1 g/dL (6.4-8.9); eGFR For African Americans > 60 (> 60); eGFR For Non-African Americans > 60 (> 60)
[2021-11-16] MEDS: MethylPREDNISolone 40 MG/ML VIAL IVP SCH (09:10)
[2021-11-16] MEDS: Furosemide 20 MG/2 ML VIAL IVP SCH ×2 (09:10→20:59)
[2021-11-16] MEDS: Aspirin Enteric Coated 81 MG Tablet PO SCH (09:10)
[2021-11-16] MEDS: lisinopriL 20 MG TABLET PO SCH (09:10)
[2021-11-16] MEDS: Cholecalciferol (D-3) 1,000 UNIT (25MCG) TABLET PO SCH (09:11)
[2021-11-16] MEDS: GuaiFENesin/Dextromethorphan TABLET PO SCH ×2 (09:11→20:59)
[2021-11-16] MEDS: Insulin LISPRO 300 UNITS/3 ML VIAL SUBQ SCH ×7 (09:11→21:00)
[2021-11-16] MEDS: Ascorbic Acid 500 MG TABLET PO SCH (09:11)
[2021-11-16] MEDS: Saline Nasal Spray 44 ML BOTTLE NS PRN (09:20)
[2021-11-16] MEDS: ELDERBERRY EXTRACT PO SCH (09:20)
[2021-11-16] MEDS: Fluticasone Propionate Nasal 50 MCG/SPRAY BOTTLE NS SCH ×2 (09:21→21:00)
[2021-11-16] MEDS: *HR* LORazepam 0.5 MG TABLET PO SCH ×2 (10:04→20:59)
[2021-11-16] MEDS: Insulin DETEMIR 100 UNIT/ML X5UNITS SUBQ SCH ×2 (10:04→20:59)
[2021-11-17] MEDS: Ipratropium/Albuterol Neb 3 ML IH SCH ×6 (04:34→23:47)
[2021-11-17] MEDS: *HR* Enoxaparin 40 MG/0.4 ML SYRINGE SQ SCH (04:49)
[2021-11-17] MEDS: Aspirin Enteric Coated 81 MG Tablet PO SCH (09:20)
[2021-11-17] MEDS: Fluticasone Propionate Nasal 50 MCG/SPRAY BOTTLE NS SCH ×2 (09:20→21:40)
[2021-11-17] MEDS: Saline Nasal Spray 44 ML BOTTLE NS PRN ×3 (09:20→21:40)
[2021-11-17] MEDS: Ascorbic Acid 500 MG TABLET PO SCH (09:20)
[2021-11-17] MEDS: lisinopriL 20 MG TABLET PO SCH (09:21)
[2021-11-17] MEDS: Cholecalciferol (D-3) 1,000 UNIT (25MCG) TABLET PO SCH (09:21)
[2021-11-17] MEDS: GuaiFENesin/Dextromethorphan TABLET PO SCH ×2 (09:21→21:36)
[2021-11-17] MEDS: ELDERBERRY EXTRACT PO SCH (09:22)
[2021-11-17] MEDS: Insulin LISPRO 300 UNITS/3 ML VIAL SUBQ SCH ×7 (09:28→21:39)
[2021-11-17] MEDS: Insulin DETEMIR 100 UNIT/ML X5UNITS SUBQ SCH ×2 (10:05→21:39)
[2021-11-17] MEDS: Furosemide 20 MG/2 ML VIAL IVP SCH ×2 (10:06→22:29)
[2021-11-17] MEDS: *HR* LORazepam 0.5 MG TABLET PO SCH ×2 (10:08→21:36)
[2021-11-17 10:23] LABS: ABG Base Excess 7 mEq/L (-2 to 3); ABG HCO3 32 mEq/L (21-27); ABG Oxygen Saturation 89 % (95-98); ABG PCO2 44 mmHg (35-45); ABG PH 7.47 pH Units (7.32-7.45); ABG PO2 54 mmHg (85-104); ABG TCO2 33 mEq/L (20-26)
[2021-11-17 13:12] LABS: Basophils % 0.1 %; Eosinophils # 0.3 K/mcL (0.0-0.6); Hematocrit 49.4 % (37.5-50.1); Hemoglobin 16.6 g/dL (12.9-16.9); Immature Granulocytes % 0.5 % (0-4); Lymphocytes # 1.6 K/mcL (0.6-4.6); Lymphocytes % 11.6 %; Mean Corpuscular HGB Conc 33.6 g/dL (31.6-35.5); Mean Corpuscular Volume 92.3 fL (83.0-100.0); Monocytes # 0.5 K/mcL (0.0-1.3); Monocytes % 3.6 %; Neutrophils # 11.6 K/mcL (1.6-8.9); Platelet Count 165 K/mcL (140-400); Red Blood Count 5.35 M/mcL (4.19-5.50); Red Cell Distribution Width 17.3 % (11.5-14.5); Segmented Neutrophils % 82.2 %; White Blood Count 14.1 K/mcL (4.3-11.1)
[2021-11-17 13:35] LABS: Alanine Aminotransferase 49 Units/L (7-52); Albumin 2.6 g/dL (3.5-5.7); Albumin/Globulin Ratio 0.9 (1.1-2.2); Alkaline Phosphatase 98 Units/L (34-104); Aspartate Amino Transferase 36 Units/L (13-39); BUN/Creatinine Ratio 44 (6-26); Bilirubin,Total 0.9 mg/dL (0.3-1.0); Blood Urea Nitrogen 33 mg/dL (8-23); Calcium 8.5 mg/dL (8.6-10.3); Carbon Dioxide 35 mEq/L (23-29); Chloride 99 mEq/L (98-107); Glucose 126 mg/dL (70-105); Osmolality,Calculated 303 (280-300); Potassium 3.3 mEq/L (3.5-5.1); Sodium 142 mEq/L (136-145); Total Protein 5.6 g/dL (6.4-8.9); eGFR For African Americans > 60 (> 60); eGFR For Non-African Americans > 60 (> 60)
[2021-11-17] MEDS ORDERED: Ipratropium/Albuterol Neb 3 ML ONE (17:57)
[2021-11-17] MEDS: *HR* Dextrose 50 % in Water (Syg) 50 ML SYRINGE IVP PRN (18:04)
[2021-11-17] MEDS ORDERED: Potassium Chloride Elixir 20 MEQ/15 ML UDC PO ONE (18:45)
[2021-11-17] MEDS: Magic Mouthwash 10 ML UD Cup PO SCH (18:54)
[2021-11-17] MEDS ORDERED: Potassium Chloride Elixir 20 MEQ/15 ML UDC PO SCH (21:00)
[2021-11-18] MEDS: Ipratropium/Albuterol Neb 3 ML IH SCH ×5 (03:55→20:47)
[2021-11-18] MEDS: *HR* Enoxaparin 40 MG/0.4 ML SYRINGE SQ SCH (05:08)
[2021-11-18 05:42] LABS: Basophils % 0.3 %; Eosinophils # 0.3 K/mcL (0.0-0.6); Eosinophils % 2.8 %; Hematocrit 48.8 % (37.5-50.1); Hemoglobin 16.3 g/dL (12.9-16.9); Immature Granulocytes % 0.7 % (0-4); Lymphocytes # 1.8 K/mcL (0.6-4.6); Lymphocytes % 15.1 %; Mean Corpuscular HGB Conc 33.4 g/dL (31.6-35.5); Mean Corpuscular Volume 92.8 fL (83.0-100.0); Mean Platelet Volume 9.5 fL (9.4-12.4); Monocytes # 0.6 K/mcL (0.0-1.3); Monocytes % 4.8 %; Neutrophils # 9.2 K/mcL (1.6-8.9); Platelet Count 146 K/mcL (140-400); Red Blood Count 5.26 M/mcL (4.19-5.50); Red Cell Distribution Width 17.5 % (11.5-14.5); Segmented Neutrophils % 76.3 %
[2021-11-18 06:01] LABS: Alanine Aminotransferase 48 Units/L (7-52); Albumin 2.5 g/dL (3.5-5.7); Albumin/Globulin Ratio 0.9 (1.1-2.2); Alkaline Phosphatase 88 Units/L (34-104); Aspartate Amino Transferase 41 Units/L (13-39); BUN/Creatinine Ratio 33 (6-26); Bilirubin,Total 1.3 mg/dL (0.3-1.0); Blood Urea Nitrogen 30 mg/dL (8-23); Calcium 8.2 mg/dL (8.6-10.3); Carbon Dioxide 39 mEq/L (23-29); Chloride 99 mEq/L (98-107); Globulin 2.8 g/dL (2.4-3.5); Glucose 144 mg/dL (70-105); Osmolality,Calculated 301 (280-300); Potassium 3.9 mEq/L (3.5-5.1); Sodium 141 mEq/L (136-145); Total Protein 5.3 g/dL (6.4-8.9); eGFR For African Americans > 60 (> 60); eGFR For Non-African Americans > 60 (> 60)
[2021-11-18] MEDS: GuaiFENesin/Dextromethorphan TABLET PO SCH ×2 (08:34→22:18)
[2021-11-18] MEDS: Aspirin Enteric Coated 81 MG Tablet PO SCH (08:34)
[2021-11-18] MEDS: lisinopriL 20 MG TABLET PO SCH (08:35)
[2021-11-18] MEDS: Ascorbic Acid 500 MG TABLET PO SCH (08:35)
[2021-11-18] MEDS: Cholecalciferol (D-3) 1,000 UNIT (25MCG) TABLET PO SCH (08:35)
[2021-11-18] MEDS: *HR* LORazepam 0.5 MG TABLET PO SCH ×2 (08:37→22:18)
[2021-11-18] MEDS: Insulin LISPRO 300 UNITS/3 ML VIAL SUBQ SCH ×7 (08:38→22:18)
[2021-11-18] MEDS: Furosemide 20 MG/2 ML VIAL IVP SCH ×2 (09:06→22:18)
[2021-11-18] MEDS: Fluticasone Propionate Nasal 50 MCG/SPRAY BOTTLE NS SCH ×2 (09:06→22:23)
[2021-11-18] MEDS: Insulin DETEMIR 100 UNIT/ML X5UNITS SUBQ SCH ×2 (09:06→22:19)
[2021-11-18] MEDS: Magic Mouthwash 10 ML UD Cup PO SCH ×3 (09:06→18:43)
[2021-11-18] MEDS: ELDERBERRY EXTRACT PO SCH (09:07)
[2021-11-18] MEDS: Acetaminophen 325 MG TABLET PO PRN (10:50)
[2021-11-19] MEDS: Ipratropium/Albuterol Neb 3 ML IH SCH ×7 (00:43→23:40)
[2021-11-19] MEDS: *HR* Enoxaparin 40 MG/0.4 ML SYRINGE SQ SCH (06:38)
[2021-11-19] MEDS: Insulin LISPRO 300 UNITS/3 ML VIAL SUBQ SCH ×7 (07:13→23:27)
[2021-11-19] MEDS: Dextrose Gel 15 GM/37.5 ML TUBE PO PRN ×2 (07:32→08:00)
[2021-11-19] MEDS: Aspirin Enteric Coated 81 MG Tablet PO SCH (08:02)
[2021-11-19] MEDS: GuaiFENesin/Dextromethorphan TABLET PO SCH ×2 (08:02→20:52)
[2021-11-19] MEDS: Acetaminophen 325 MG TABLET PO PRN (08:02)
[2021-11-19] MEDS: Magic Mouthwash 10 ML UD Cup PO SCH ×3 (08:03→16:05)
[2021-11-19] MEDS: Ascorbic Acid 500 MG TABLET PO SCH (08:03)
[2021-11-19] MEDS: Saline Nasal Spray 44 ML BOTTLE NS PRN (10:00)
[2021-11-19] MEDS: ELDERBERRY EXTRACT PO SCH (10:07)
[2021-11-19] MEDS: *HR* LORazepam 0.5 MG TABLET PO SCH ×2 (10:07→20:52)
[2021-11-19] MEDS: lisinopriL 20 MG TABLET PO SCH (10:08)
[2021-11-19] MEDS: Cholecalciferol (D-3) 1,000 UNIT (25MCG) TABLET PO SCH (10:11)
[2021-11-19] MEDS ORDERED: 0.9 % Sodium Chloride 500 ML IVC ONE (10:15)
[2021-11-19] MEDS: 0.9 % Sodium Chloride 1,000 ML IVC SCH ×2 (10:24→23:19)
[2021-11-19] MEDS ORDERED: levoFLOXacin 750 MG/150 ML 750 MG/150 ML BAG IVPB SCH (10:30)
[2021-11-19] MEDS ORDERED: Vancomycin 1,500 MG/265 ML IV.SOLN IVPB ONE (10:42)
[2021-11-19] MEDS ORDERED: Vancomycin (wt based) 1,000 MG VIAL IVPB SCH (11:00)
[2021-11-19 11:02] LABS: Basophils % 0.3 %; Eosinophils # 0.2 K/mcL (0.0-0.6); Eosinophils % 1.7 %; Hematocrit 43.9 % (37.5-50.1); Immature Granulocytes % 0.4 % (0-4); Lymphocytes # 1.7 K/mcL (0.6-4.6); Lymphocytes % 14.3 %; Mean Corpuscular HGB Conc 34.2 g/dL (31.6-35.5); Mean Corpuscular Hemoglobin 31.7 pg (28.0-33.3); Mean Corpuscular Volume 92.8 fL (83.0-100.0); Mean Platelet Volume 9.8 fL (9.4-12.4); Monocytes # 0.5 K/mcL (0.0-1.3); Monocytes % 3.8 %; Neutrophils # 9.5 K/mcL (1.6-8.9); Platelet Count 126 K/mcL (140-400); Red Blood Count 4.73 M/mcL (4.19-5.50); Red Cell Distribution Width 17.1 % (11.5-14.5); Segmented Neutrophils % 79.5 %; White Blood Count 11.9 K/mcL (4.3-11.1)
[2021-11-19 11:21] LABS: BUN/Creatinine Ratio 35 (6-26); Blood Urea Nitrogen 29 mg/dL (8-23); Calcium 7.8 mg/dL (8.6-10.3); Carbon Dioxide 33 mEq/L (23-29); Chloride 101 mEq/L (98-107); Glucose 134 mg/dL (70-105); Osmolality,Calculated 298 (280-300); Potassium 3.6 mEq/L (3.5-5.1); Sodium 140 mEq/L (136-145); eGFR For African Americans > 60 (> 60); eGFR For Non-African Americans > 60 (> 60)
[2021-11-19] MEDS: Fluticasone Propionate Nasal 50 MCG/SPRAY BOTTLE NS SCH ×2 (15:33→22:01)
[2021-11-19] MEDS ORDERED: Furosemide 20 MG TABLET PO SCH (17:00)
[2021-11-19 17:57] LABS: Bilirubin,Urine Negative (Negative); Blood,Urine Moderate (Negative); Clarity,Urine Clear (Clear); Color,Urine Light-Orange (Yellow); Glucose,Urine (UA) Normal (Normal); Ketones,Urine Negative (Negative); Leukocyte Esterase,Urine Negative (Negative); Nitrite,Urine Negative (Negative); Protein,Urine 100 mg/dL (Neg-Trace); RBC,Urine 0-3 per hpf (0-3); Specific Gravity,Urine 1.027 (1.010-1.025); Urobilinogen,Urine Normal (Normal); WBC,Urine 0-3 per hpf (0-3)
[2021-11-19] MEDS: Nystatin SUSP 5 ML UD.LIQ PO SCH (20:53)
[2021-11-19] MEDS ORDERED: 0.9 % Sodium Chloride 1,000 ML IVC ONE (21:29)
[2021-11-19] MEDS: Insulin DETEMIR 100 UNIT/ML X5UNITS SUBQ SCH ×2 (21:53→22:24)
[2021-11-19] MEDS ORDERED: Vancomycin 1,500 MG/265 ML IV.SOLN IVPB SCH (23:00)
[2021-11-20] MEDS: Piperacillin/Tazobactam 3.375 GM in 0.9 % Sodium Chloride Mini Bag 100 ML IVPB SCH ×3 (00:44→16:02)
[2021-11-20 03:27] LABS: Basophils % 0.2 %; Eosinophils # 0.3 K/mcL (0.0-0.6); Eosinophils % 2.9 %; Hematocrit 43.4 % (37.5-50.1); Hemoglobin 14.4 g/dL (12.9-16.9); Immature Granulocytes % 0.4 % (0-4); Lymphocytes # 1.1 K/mcL (0.6-4.6); Lymphocytes % 11.7 %; Mean Corpuscular HGB Conc 33.2 g/dL (31.6-35.5); Mean Corpuscular Hemoglobin 30.8 pg (28.0-33.3); Mean Corpuscular Volume 92.9 fL (83.0-100.0); Mean Platelet Volume 10.4 fL (9.4-12.4); Monocytes # 0.4 K/mcL (0.0-1.3); Neutrophils # 7.6 K/mcL (1.6-8.9); Platelet Count 126 K/mcL (140-400); Red Blood Count 4.67 M/mcL (4.19-5.50); Red Cell Distribution Width 17.2 % (11.5-14.5); Segmented Neutrophils % 80.8 %; White Blood Count 9.5 K/mcL (4.3-11.1)
[2021-11-20 03:47] LABS: BUN/Creatinine Ratio 32 (6-26); Blood Urea Nitrogen 26 mg/dL (8-23); Calcium 7.4 mg/dL (8.6-10.3); Carbon Dioxide 30 mEq/L (23-29); Chloride 104 mEq/L (98-107); Glucose 138 mg/dL (70-105); Osmolality,Calculated 297 (280-300); Potassium 3.5 mEq/L (3.5-5.1); Sodium 140 mEq/L (136-145); eGFR For African Americans > 60 (> 60); eGFR For Non-African Americans > 60 (> 60)
[2021-11-20] MEDS: Ipratropium/Albuterol Neb 3 ML IH SCH ×5 (03:58→21:29)
[2021-11-20] MEDS: 0.9 % Sodium Chloride 1,000 ML IVC SCH ×3 (05:43→23:16)
[2021-11-20] MEDS: *HR* Enoxaparin 40 MG/0.4 ML SYRINGE SQ SCH (05:45)
[2021-11-20] MEDS: *HR* LORazepam 0.5 MG TABLET PO SCH ×3 (08:34→22:11)
[2021-11-20] MEDS: Cholecalciferol (D-3) 1,000 UNIT (25MCG) TABLET PO SCH (08:34)
[2021-11-20] MEDS: Ascorbic Acid 500 MG TABLET PO SCH ×2 (08:34→08:37)
[2021-11-20] MEDS: GuaiFENesin/Dextromethorphan TABLET PO SCH ×2 (08:38→21:57)
[2021-11-20] MEDS: Aspirin Enteric Coated 81 MG Tablet PO SCH (08:38)
[2021-11-20] MEDS: Nystatin SUSP 5 ML UD.LIQ PO SCH ×4 (08:39→21:56)
[2021-11-20] MEDS: Magic Mouthwash 10 ML UD Cup PO SCH ×3 (08:39→17:08)
[2021-11-20] MEDS: Acetylcysteine 10% 2 ML INHSOL IH SCH ×3 (11:46→21:29)
[2021-11-20] MEDS: Fluticasone Propionate Nasal 50 MCG/SPRAY BOTTLE NS SCH ×3 (12:55→22:07)
[2021-11-20] MEDS: ELDERBERRY EXTRACT PO SCH (15:49)
[2021-11-20] MEDS: Insulin LISPRO 300 UNITS/3 ML VIAL SUBQ SCH ×3 (15:49→21:50)
[2021-11-20] MEDS: Acetaminophen 325 MG TABLET PO PRN (18:47)
[2021-11-20] MEDS: Insulin DETEMIR 100 UNIT/ML X5UNITS SUBQ SCH (21:49)
[2021-11-21] MEDS ORDERED: 0.9 % Sodium Chloride 1,000 ML IVC ONE ×2 (00:26→02:23)
[2021-11-21] MEDS: Ipratropium/Albuterol Neb 3 ML IH SCH ×7 (00:45→23:43)
[2021-11-21] MEDS: Acetylcysteine 10% 2 ML INHSOL IH SCH ×7 (00:45→23:44)
[2021-11-21] MEDS: Piperacillin/Tazobactam 3.375 GM in 0.9 % Sodium Chloride Mini Bag 100 ML IVPB SCH ×3 (01:39→16:11)
[2021-11-21 02:46] LABS: Basophils % 0.2 %; Eosinophils # 0.3 K/mcL (0.0-0.6); Eosinophils % 3.2 %; Hematocrit 38.8 % (37.5-50.1); Hemoglobin 12.9 g/dL (12.9-16.9); Immature Granulocytes % 0.5 % (0-4); Lymphocytes # 1.6 K/mcL (0.6-4.6); Lymphocytes % 15.8 %; Mean Corpuscular HGB Conc 33.2 g/dL (31.6-35.5); Mean Corpuscular Hemoglobin 31.3 pg (28.0-33.3); Mean Corpuscular Volume 94.2 fL (83.0-100.0); Mean Platelet Volume 10.2 fL (9.4-12.4); Monocytes # 0.5 K/mcL (0.0-1.3); Monocytes % 4.7 %; Neutrophils # 7.6 K/mcL (1.6-8.9); Platelet Count 124 K/mcL (140-400); Red Blood Count 4.12 M/mcL (4.19-5.50); Red Cell Distribution Width 17.2 % (11.5-14.5); Segmented Neutrophils % 75.6 %; White Blood Count 10.1 K/mcL (4.3-11.1)
[2021-11-21 03:00] LABS: BUN/Creatinine Ratio 30 (6-26); Blood Urea Nitrogen 27 mg/dL (8-23); Calcium 7.3 mg/dL (8.6-10.3); Carbon Dioxide 27 mEq/L (23-29); Chloride 107 mEq/L (98-107); Glucose 153 mg/dL (70-105); Magnesium 1.7 mg/dL (1.6-2.6); Osmolality,Calculated 300 (280-300); Potassium 3.2 mEq/L (3.5-5.1); Sodium 141 mEq/L (136-145); eGFR For African Americans > 60 (> 60); eGFR For Non-African Americans > 60 (> 60)
[2021-11-21] MEDS: *HR* Enoxaparin 40 MG/0.4 ML SYRINGE SQ SCH (06:34)
[2021-11-21] MEDS ORDERED: Potassium Chloride Elixir 20 MEQ/15 ML UDC PO ONE (07:41)
[2021-11-21] MEDS: Magic Mouthwash 10 ML UD Cup PO SCH ×3 (09:15→16:11)
[2021-11-21] MEDS: Aspirin Enteric Coated 81 MG Tablet PO SCH (09:38)
[2021-11-21] MEDS: Ascorbic Acid 500 MG TABLET PO SCH (09:38)
[2021-11-21] MEDS: *HR* LORazepam 0.5 MG TABLET PO SCH ×2 (09:38→21:18)
[2021-11-21] MEDS: Cholecalciferol (D-3) 1,000 UNIT (25MCG) TABLET PO SCH (09:38)
[2021-11-21] MEDS: GuaiFENesin/Dextromethorphan TABLET PO SCH ×2 (09:38→21:27)
[2021-11-21] MEDS: ELDERBERRY EXTRACT PO SCH (09:47)
[2021-11-21] MEDS: Insulin LISPRO 300 UNITS/3 ML VIAL SUBQ SCH ×4 (09:53→21:26)
[2021-11-21] MEDS ORDERED: Melatonin 3 MG TABLET PO PRN (10:34)
[2021-11-21] MEDS ORDERED: polyethylene glycoL 3350 17 GM POWD.PACK PO PRN (10:34)
[2021-11-21] MEDS: Nystatin SUSP 5 ML UD.LIQ PO SCH ×4 (11:38→21:27)
[2021-11-21] MEDS ORDERED: Furosemide 40 MG/4 ML VIAL IVP ONE (14:21)
[2021-11-21] MEDS: Fluticasone Propionate Nasal 50 MCG/SPRAY BOTTLE NS SCH (21:25)
[2021-11-21] MEDS: Insulin DETEMIR 100 UNIT/ML X5UNITS SUBQ SCH (21:26)
[2021-11-22] MEDS: Piperacillin/Tazobactam 3.375 GM in 0.9 % Sodium Chloride Mini Bag 100 ML IVPB SCH ×4 (03:17→23:17)
[2021-11-22] MEDS: Acetylcysteine 10% 2 ML INHSOL IH SCH ×6 (03:43→23:44)
[2021-11-22] MEDS: Ipratropium/Albuterol Neb 3 ML IH SCH ×6 (03:43→23:44)
[2021-11-22] MEDS: *HR* Enoxaparin 40 MG/0.4 ML SYRINGE SQ SCH (06:01)
[2021-11-22] MEDS: ELDERBERRY EXTRACT PO SCH (07:35)
[2021-11-22] MEDS: GuaiFENesin/Dextromethorphan TABLET PO SCH ×2 (07:46→20:03)
[2021-11-22] MEDS: Ascorbic Acid 500 MG TABLET PO SCH (07:46)
[2021-11-22] MEDS: Aspirin Enteric Coated 81 MG Tablet PO SCH (07:46)
[2021-11-22] MEDS: *HR* LORazepam 0.5 MG TABLET PO SCH (07:46)
[2021-11-22] MEDS: Cholecalciferol (D-3) 1,000 UNIT (25MCG) TABLET PO SCH (07:46)
[2021-11-22] MEDS: Magic Mouthwash 10 ML UD Cup PO SCH ×3 (07:57→16:16)
[2021-11-22] MEDS: Nystatin SUSP 5 ML UD.LIQ PO SCH ×4 (07:57→20:03)
[2021-11-22] MEDS: Fluticasone Propionate Nasal 50 MCG/SPRAY BOTTLE NS SCH ×2 (08:01→21:01)
[2021-11-22] MEDS: 0.9 % Sodium Chloride 1,000 ML IVC SCH (08:02)
[2021-11-22] MEDS: Insulin LISPRO 300 UNITS/3 ML VIAL SUBQ SCH ×4 (08:47→20:03)
[2021-11-22] MEDS: Vancomycin 1,500 MG/265 ML IV.SOLN IVPB SCH ×2 (09:28→22:36)
[2021-11-22] MEDS ORDERED: Morphine Sulfate Oral CONC 10 MG/0.5 ML ORAL.SYG SL ONE (10:07)
[2021-11-22] MEDS ORDERED: Morphine Sulfate Oral CONC 10 MG/0.5 ML ORAL.SYG SL PRN (11:46)
[2021-11-22] MEDS ORDERED: Acetaminophen 650 MG RECTAL SUPP RC PRN (11:49)
[2021-11-22] MEDS: *HR* LORazepam Oral Conc 2 MG/ML SL PRN ×2 (12:19→22:36)
[2021-11-22] MEDS: Insulin DETEMIR 100 UNIT/ML X5UNITS SUBQ SCH (20:03)
[2021-11-22] MEDS ORDERED: 0.9 % Sodium Chloride 250 ML IVC ONE ×2 (21:25→22:51)
[2021-11-22] MEDS ORDERED: Albumin 25% 25gram/100mL 25 GM/100 ML IV.SOLN IVPB ONE (22:51)
[2021-11-23] MEDS ORDERED: 0.9 % Sodium Chloride 500 ML IVC ONE ×2 (01:06→02:58)
[2021-11-23 02:50] LABS: Hematocrit 39.4 % (37.5-50.1); Hemoglobin 12.7 g/dL (12.9-16.9); Mean Corpuscular HGB Conc 32.2 g/dL (31.6-35.5); Mean Corpuscular Hemoglobin 31.1 pg (28.0-33.3); Mean Corpuscular Volume 96.6 fL (83.0-100.0); Mean Platelet Volume 11.3 fL (9.4-12.4); Platelet Count 103 K/mcL (140-400); Red Blood Count 4.08 M/mcL (4.19-5.50); Red Cell Distribution Width 18.5 % (11.5-14.5)
[2021-11-23 03:09] LABS: Calcium 7.2 mg/dL (8.6-10.3); Potassium 4.1 mEq/L (3.5-5.1)
[2021-11-23] MEDS: Acetylcysteine 10% 2 ML INHSOL IH SCH ×3 (04:09→11:20)
[2021-11-23] MEDS: Ipratropium/Albuterol Neb 3 ML IH SCH ×2 (04:09→07:20)
[2021-11-23] MEDS ORDERED: Ringers Solution, Lactated 500 ML IVC ONE (05:15)
[2021-11-23] MEDS: *HR* Enoxaparin 40 MG/0.4 ML SYRINGE SQ SCH (05:50)
[2021-11-23 06:28] VITALS: TEMP 98.2
[2021-11-23] MEDS: Insulin LISPRO 300 UNITS/3 ML VIAL SUBQ SCH (07:12)
[2021-11-23] MEDS: Magic Mouthwash 10 ML UD Cup PO SCH (07:39)
[2021-11-23] MEDS: ELDERBERRY EXTRACT PO SCH (07:39)
[2021-11-23] MEDS: Aspirin Enteric Coated 81 MG Tablet PO SCH (07:39)
[2021-11-23] MEDS: GuaiFENesin/Dextromethorphan TABLET PO SCH (07:39)
[2021-11-23] MEDS: Cholecalciferol (D-3) 1,000 UNIT (25MCG) TABLET PO SCH (07:40)
[2021-11-23] MEDS ORDERED: Ipratropium/Albuterol Neb 3 ML IH PRN (09:56)
[2021-11-23] MEDS ORDERED: Morphine Sulfate Oral CONC 10 MG/0.5 ML ORAL.SYG SL PRN (10:04)
[2021-11-23] MEDS: Nystatin SUSP 5 ML UD.LIQ PO SCH (10:26)
[2021-11-23] MEDS: Morphine Sulfate Oral CONC 10 MG/0.5 ML ORAL.SYG SL SCH ×5 (10:53→20:30)
[2021-11-23] MEDS: Glycopyrrolate 0.2 MG/ML VIAL IVP PRN ×3 (13:29→21:48)
[2021-11-24] MEDS: Morphine Sulfate Oral CONC 10 MG/0.5 ML ORAL.SYG SL SCH ×3 (00:38→07:59)
[2021-11-24] MEDS: Glycopyrrolate 0.2 MG/ML VIAL IVP PRN (05:15)
[2021-11-24] MEDS: Piperacillin/Tazobactam 3.375 GM in 0.9 % Sodium Chloride Mini Bag 100 ML IVPB SCH (06:30)
[2021-11-24] MEDS: Fluticasone Propionate Nasal 50 MCG/SPRAY BOTTLE NS SCH (06:31)
[2021-11-24] MEDS: Ascorbic Acid 500 MG TABLET PO SCH (06:32)
[2021-11-24 08:02] VITALS: BP 73/52; PULSE 97; O2SAT 94
[2021-11-24] MEDS: *HR* LORazepam Oral Conc 2 MG/ML SL PRN (08:21)
== END 2021-11-24 10:34 | disposition expired | DRG 177 ==
LOC: 3NENU 07:55 → EMEROOARM 07:55 → 3NENU 11:30 → SUATTDRO 15:14 → 3NENU 10-27 10:08
PROVIDERS: ADMIT General Practice; ATTEND Internal Medicine